=== PATIENT | male | born 1965 | race Two or more races ===

== ENCOUNTER 2021-08-28 06:51 | Outpatient (REF) | payer OTHER, SELFPAY ==
[2021-08-28 11:26] LABS: MANUAL DIFF FLAG NO
[2021-08-28 11:35] LABS: Basophils Percent Auto 0.3 % (0-2); Eosinophils Absolute Auto 0.1 X10*3/uL (0.0-0.4); Eosinophils Percent Auto 2.4 % (0-4); Hematocrit 49.4 % (42.0-52.0); Hemoglobin 16.4 g/dl (14.0-18.0); Imm Gran Abs Auto 0.01 X10*3/uL (0.00-0.03); Imm Gran Pct Auto 0.2 % (0.0-0.4); Lymphocytes Absolute Auto 1.9 X10*3/uL (1.2-4.9); Lymphocytes Percent Auto 31.5 % (20-40); Mean Corpuscular HGB Conc 33.2 g/dl (31.0-36.0); Mean Corpuscular Hemoglobin 30.8 pg (27.0-33.0); Mean Corpuscular Volume 92.9 fL (80.0-98.0); Monocytes Absolute Auto 0.6 X10*3/uL (0.1-1.2); Monocytes Percent Auto 9.3 % (2-11); Neutrophils Absolute Auto 3.4 x10*3/uL (2.0-8.3); Neutrophils Percent Auto 56.3 % (45-73); Platelet Count 232 X10*3/uL (160-400); Red Blood Count 5.32 X10*6/uL (4.60-5.80); Red Cell Distribution Width 13.1 % (11.0-16.0); White Blood Count 5.9 X10*3/uL (4.8-10.8)
[2021-08-28 11:41] LABS: Estimated Average Glucose 108 mg/dL; Hemoglobin A1c % 5.4 %
[2021-08-28 12:33] LABS: Alanine Aminotransferase 23 U/L (0-40); Albumin Level 4.4 g/dL (3.5-5.0); Alkaline Phosphatase 51 U/L (39-117); Anion Gap 12 (12-20); Aspartate Amino Transferase 20 U/L (5-37); Bilirubin Total 0.8 mg/dL (0.0-1.0); Blood Urea Nitrogen 12 mg/dL (9-16); Carbon Dioxide 23 mmol/L (22-29); Chloride 108 mmol/L (96-108); Cholesterol 175 mg/dL; Estimated Glomerular Filt Rate > 60; Glucose Fasting 109 mg/dL (60-99); HDL Cholesterol 41 mg/dL; LDL Cholesterol Calculated 100 mg/dl; Potassium 4.5 mmol/L (3.3-5.1); Sodium 138 mmol/L (135-145); Total Protein 7.3 g/dL (6.5-8.0); Triglycerides 173 mg/dL
[2021-09-01 14:06] LABS: Vitamin D 25-OH, D2 <4 ng/mL; Vitamin D 25-OH, D3 15 ng/mL; Vitamin D 25-OH, Total 15 ng/mL (30-100)
== END 2021-08-28 06:52 | disposition home or self-care (01) ==
LOC: HO.HMGCLDS 06:51
PROVIDERS: PCP Internal Medicine; Visit Provider Internal Medicine
DX: Z00.01 Encounter for general adult medical examination with abnormal findings (principal); E55.9 Vitamin D deficiency, unspecified; E66.09 Other obesity due to excess calories; N40.0 Benign prostatic hyperplasia without lower urinary tract symptoms; R73.01 Impaired fasting glucose
CPT/HCPCS: 36415; 80053; 80061; 82306; 83036; 85025

== ENCOUNTER 2021-09-09 10:19 | Outpatient (REF) | payer OTHER, SELFPAY | END 2021-09-09 10:20 | disposition home or self-care (01) | LOC: HO.HMGCLDS 10:19 | PROVIDERS: Visit Provider Internal Medicine | DX: Z20.822 Contact with and (suspected) exposure to COVID-19 (principal) | CPT/HCPCS: C9803; U0003; U0005 ==

== ENCOUNTER 2021-11-07 12:38 | Outpatient (REF) | payer OTHER, SELFPAY ==
--- NOTE | ~2021-11-07 | XR_ITS ---
EXAMINATION: XR FINGER, RIGHT CLINICAL INFORMATION: Residual foreign body in soft tissues. COMPARISON: None TECHNIQUE: 3 views of the right first digit. FINDINGS: There is mild loss of first MCP joint space with periarticular spurring. No bony erosive changes seen. There is no visible acute fracture or dislocation seen. XR/XR finger RT min 2V IMPRESSION: Mild degenerative changes first MCP joint with periarticular spurring. No acute fracture seen.
== END 2021-11-07 12:39 | disposition home or self-care (01) ==
LOC: HO.HMGCX 12:38
PROVIDERS: Visit Provider Internal Medicine
DX: M79.5 Residual foreign body in soft tissue (principal); M79.644 Pain in right finger(s)
CPT/HCPCS: 73140

== ENCOUNTER → 2021-12-03 13:42 | Outpatient (BNVA) | payer OTHER, SELFPAY | PROVIDERS: PCP Internal Medicine; Visit Provider Orthopaedic Surgery | DX: S60.351D Superficial foreign body of right thumb, subsequent encounter (principal); X58.XXXD Exposure to other specified factors, subsequent encounter | CPT/HCPCS: 99212 ==

== ENCOUNTER 2021-12-08 09:55 | Day surgery (SDC) | payer OTHER, SELFPAY ==
--- NOTE | 2021-12-08 08:10 | W.PM.OPN ---
Operative Note Operative Note Date of Service: 12/08/21 Narrative: Operative Note Preop diagnosis: 1. Right thumb foreign body Postop diagnosis: same Procedure: 1. Right thumb foreign body excision Surgeon: Debra Long MD Anesthesia: digital block using 1% lidocaine with epinephrine Findings: A 2.5 cm long wooden splinter measuring approximately 2 mm in diameter was removed from the radial aspect of his right thumb. EBL: Less than 5 mL Tourniquet time: None Specimens: Right thumb foreign body/splinter Complications: None Disposition: Brought to recovery room in stable condition Plan: Follow-up for 7-10 days for wound check and suture removal and to check pathology I am also going to send him out on a 7 day course of prophylactic antibiotics. Indications: The patient is 56 years old, with a large splinter in his right thumb . The risks and benefits of operative treatment including but not limited to risk of damage to blood vessels, nerves, tendons, infection, persistent pain, persistent symptoms, recurrence or possible need for additional surgery were discussed with the patient and the patient wishes to proceed with surgery. Procedure: Once consent was obtained a digital block was performed in the preop area using a combination of 1% lidocaine with epinephrine. The patient was then brought back to the operating suite and placed on the operative table in supine position. A tourniquet was applied to the proximal aspect of the right upper extremity and the limb was prepped and draped in a standard surgical fashion. Once assured that we had a good block, I 1st made a 1.5 cm longitudinally oriented oblique incision directly over the foreign body on the radial aspect of the patient's right thumb. The incision was made through the skin to the subcutaneous tissues using a 15. Blade. I then dissected down to the subcutaneous tissues and the fascial layer radial to the distal phalanx using tenotomy and iris scissors. The foreign body was identified in oriented longitudinally but slightly obliquely. It is a wooden splinter. I tried to remove it, but the soft tissues were adherent to it. I therefore extended my incision proximally and slightly volarly using a 15. Blade to the length of the foreign body. Again I dissected down to the level of the foreign body and freed it up from the adherent fascia and scar. I then removed the foreign body placed on the back table. It measured 2.5 cm. The wound was then copiously irrigated with normal saline and hemostasis was obtained with a brief period of local pressure and some bipolar electrocautery The skin edges were reapproximated with some 5.0 nylon suture material and a sterile dressing was applied. The patient appears to have tolerated the procedure well and with no complications. All digits were well vascularized at the conclusion of the case.
[2021-12-08 10:05] VITALS: BP 125/60; PULSE 70; RESP 16; TEMP 36.7; O2SAT 96; BMI 31.0
--- NOTE | 2021-12-08 10:42 | MHC.SHP ---
Pre-Procedural Eval Section A Date of Service: 12/08/21 The patient is an INPATIENT: No Changes since office visit: No Cold of Flu in the past 2 weeks, No New Medical Problems, No Changes in Medication and No Patient answered all questions The History & Physical has been completed within 30 days and I have reviewed it.: Yes Section B Chief Complaint: foreign body removal Allergies: Allergies Allergy/AdvReac Type Severity Reaction Status Date / Time No Known Allergies Allergy Verified 12/03/21 14:02 Plan I have reviewed the history and physical and performed a pertinent physical examination on my patient. No changes have occurred unless specified.
[2021-12-08 11:55] VITALS: BP 121/79; PULSE 61; RESP 20; TEMP 36.8; O2SAT 97
== END 2021-12-08 12:05 | disposition home or self-care (01) ==
PROVIDERS: PCP Internal Medicine; Visit Provider Orthopaedic Surgery
PROC: (CPT 10120; principal; 2021-12-08 10:10)
DX: S60.351A Superficial foreign body of right thumb, initial encounter (principal); Z18.33 Retained wood fragments; M19.041 Primary osteoarthritis, right hand; X58.XXXA Exposure to other specified factors, initial encounter; Y93.9 Activity, unspecified; Y92.009 Unspecified place in unspecified non-institutional (private) residence as the place of occurrence of the external cause; Y99.8 Other external cause status
CPT/HCPCS: 10120; 88300; J0171

== ENCOUNTER → 2021-12-23 09:01 | Outpatient (BNVA) | payer OTHER, SELFPAY | PROVIDERS: PCP Internal Medicine; Visit Provider Orthopaedic Surgery | DX: Z13.89 Encounter for screening for other disorder (principal) ==

== ENCOUNTER 2022-02-05 06:20 | Outpatient (REF) | payer OTHER, SELFPAY ==
[2022-02-05 11:12] LABS: MANUAL DIFF FLAG NO
[2022-02-05 11:23] LABS: Basophils Percent Auto 0.4 % (0-2); Eosinophils Absolute Auto 0.2 X10*3/uL (0.0-0.4); Eosinophils Percent Auto 2.4 % (0-4); Hematocrit 47.6 % (42.0-52.0); Hemoglobin 15.5 g/dl (14.0-18.0); Imm Gran Abs Auto 0.03 X10*3/uL (0.00-0.03); Imm Gran Pct Auto 0.4 % (0.0-0.4); Lymphocytes Absolute Auto 2.2 X10*3/uL (1.2-4.9); Lymphocytes Percent Auto 29.7 % (20-40); Mean Corpuscular HGB Conc 32.6 g/dl (31.0-36.0); Mean Corpuscular Hemoglobin 30.4 pg (27.0-33.0); Mean Corpuscular Volume 93.3 fL (80.0-98.0); Mean Platelet Volume 10.7 fL (9.4-12.4); Monocytes Absolute Auto 0.7 X10*3/uL (0.1-1.2); Monocytes Percent Auto 10.1 % (2-11); Neutrophils Absolute Auto 4.2 x10*3/uL (2.0-8.3); Platelet Count 201 X10*3/uL (160-400); Red Cell Distribution Width 13.3 % (11.0-16.0); White Blood Count 7.4 X10*3/uL (4.8-10.8)
[2022-02-05 11:42] LABS: Alanine Aminotransferase 24 U/L (0-40); Albumin Level 4.1 g/dL (3.5-5.0); Alkaline Phosphatase 42 U/L (39-117); Anion Gap 11 (12-20); Aspartate Amino Transferase 21 U/L (5-37); Bilirubin Total 0.4 mg/dL (0.0-1.0); Blood Urea Nitrogen 15 mg/dL (9-16); Calcium 9.4 mg/dL (8.4-10.2); Carbon Dioxide 25 mmol/L (22-29); Chloride 106 mmol/L (96-108); Estimated Glomerular Filt Rate > 60; Glucose Random 104 mg/dL (60-115); Potassium 4.3 mmol/L (3.3-5.1); Sodium 138 mmol/L (135-145)
[2022-02-05 12:07] LABS: TSH reflex Free T4 1.52 uIU/mL (0.32-4.0)
[2022-02-05 12:13] LABS: Estimated Average Glucose 105 mg/dL; Hemoglobin A1c % 5.3 %
[2022-02-05 12:20] LABS: Vitamin B12 205 pg/mL (200-900)
[2022-02-09 12:52] LABS: Vitamin D 25-OH, D2 <4 ng/mL; Vitamin D 25-OH, D3 26 ng/mL; Vitamin D 25-OH, Total 26 ng/mL (30-100)
== END 2022-02-05 06:21 | disposition home or self-care (01) ==
LOC: HO.HMGCLDS 06:20
PROVIDERS: Visit Provider Internal Medicine
DX: E66.09 Other obesity due to excess calories (principal); I10 Essential (primary) hypertension; K64.9 Unspecified hemorrhoids; R73.01 Impaired fasting glucose; S46.011A Strain of muscle(s) and tendon(s) of the rotator cuff of right shoulder, initial encounter; E55.9 Vitamin D deficiency, unspecified
CPT/HCPCS: 36415; 80053; 82306; 82607; 83036; 84443; 85025

== ENCOUNTER 2022-02-17 15:49 | Outpatient (REF) | payer OTHER, SELFPAY ==
--- NOTE | ~2022-02-17 | XR_ITS ---
EXAMINATION: XR SHOULDER, RIGHT CLINICAL INFORMATION: Strain of muscle and tendon of the rotator cuff COMPARISON: None TECHNIQUE: Three views of the right shoulder. FINDINGS: No fracture or dislocation. The glenohumeral joint is well aligned. The joint space is maintained. The acromioclavicular joint is well aligned. Subacromial spurring noted. The visualized lung is clear. The visualized ribs are intact. XR/XR shoulder RT min 2V IMPRESSION: Subacromial spurring which can predispose to rotator cuff disease. Otherwise unremarkable appearance.
== END 2022-02-17 15:50 | disposition home or self-care (01) ==
LOC: HO.HMGCX 15:49
PROVIDERS: PCP Internal Medicine; Visit Provider Internal Medicine
DX: S46.011A Strain of muscle(s) and tendon(s) of the rotator cuff of right shoulder, initial encounter (principal)
CPT/HCPCS: 73030

== ENCOUNTER → 2022-03-17 13:21 | Outpatient (BNVA) | payer OTHER, SELFPAY | PROVIDERS: PCP Internal Medicine; Visit Provider Physician Assistant | DX: M75.80 Other shoulder lesions, unspecified shoulder (principal) | CPT/HCPCS: 20610; J1040 ==

== ENCOUNTER 2022-10-02 07:19 | Outpatient (REF) | payer OTHER, SELFPAY ==
[2022-10-02 11:21] LABS: MANUAL DIFF FLAG NO
[2022-10-02 11:30] LABS: Basophils Percent Auto 0.4 % (0-2); Eosinophils Absolute Auto 0.2 X10*3/uL (0.0-0.4); Eosinophils Percent Auto 2.4 % (0-4); Hematocrit 46.8 % (42.0-52.0); Hemoglobin 15.9 g/dl (14.0-18.0); Imm Gran Abs Auto 0.02 X10*3/uL (0.00-0.03); Imm Gran Pct Auto 0.3 % (0.0-0.4); Lymphocytes Absolute Auto 2.2 X10*3/uL (1.2-4.9); Lymphocytes Percent Auto 30.5 % (20-40); Mean Corpuscular Hemoglobin 30.8 pg (27.0-33.0); Mean Corpuscular Volume 90.5 fL (80.0-98.0); Mean Platelet Volume 9.8 fL (9.4-12.4); Monocytes Absolute Auto 0.7 X10*3/uL (0.1-1.2); Monocytes Percent Auto 9.8 % (2-11); Neutrophils Percent Auto 56.6 % (45-73); Platelet Count 210 X10*3/uL (160-400); Red Blood Count 5.17 X10*6/uL (4.60-5.80); Red Cell Distribution Width 12.3 % (11.0-16.0); White Blood Count 7.1 X10*3/uL (4.8-10.8)
[2022-10-02 13:00] LABS: Alanine Aminotransferase 35 U/L (0-40); Albumin Level 4.6 g/dL (3.5-5.0); Alkaline Phosphatase 48 U/L (39-117); Anion Gap 12 (12-20); Aspartate Amino Transferase 25 U/L (5-37); Bilirubin Total 1.1 mg/dL (0.0-1.0); Blood Urea Nitrogen 17 mg/dL (9-16); Calcium 9.3 mg/dL (8.4-10.2); Carbon Dioxide 26 mmol/L (22-29); Chloride 103 mmol/L (96-108); Cholesterol 189 mg/dL; Estimated Glomerular Filt Rate > 60; Glucose Fasting 98 mg/dL (60-99); HDL Cholesterol 43 mg/dL; LDL Cholesterol Calculated 123 mg/dl; Potassium 4.3 mmol/L (3.3-5.1); Sodium 137 mmol/L (135-145); Total Protein 7.5 g/dL (6.5-8.0); Triglycerides 115 mg/dL
[2022-10-02 13:12] LABS: Vitamin B12 778 pg/mL (200-900)
[2022-10-02 13:17] LABS: TSH reflex Free T4 1.35 uIU/mL (0.32-4.0)
[2022-10-07 14:04] LABS: Vitamin D 25-OH, D2 <4 ng/mL; Vitamin D 25-OH, D3 29 ng/mL; Vitamin D 25-OH, Total 29 ng/mL (30-100)
== END 2022-10-02 07:20 | disposition home or self-care (01) ==
LOC: HO.HMGCLDS 07:19
PROVIDERS: PCP Internal Medicine; Visit Provider Internal Medicine
DX: Z00.01 Encounter for general adult medical examination with abnormal findings (principal); E53.8 Deficiency of other specified B group vitamins; E55.9 Vitamin D deficiency, unspecified; E66.09 Other obesity due to excess calories; R73.01 Impaired fasting glucose; I10 Essential (primary) hypertension
CPT/HCPCS: 36415; 80053; 80061; 82306; 82607; 84443; 85025

== ENCOUNTER → 2022-10-13 07:55 | Outpatient (REF) | payer OTHER, SELFPAY ==
--- NOTE | 2022-10-13 07:58 | CA_ITS ---
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 The calculated ejection fraction is 55% by biplane method. - No obvious valvular pathology seen on this study. Findings Left Ventricle Normal left ventricular cavity size. There is normal left ventricular wall thickness. The left ventricular systolic function is normal. The calculated ejection fraction is 55% by biplane method. There is no evidence of regional wall motion abnormalities. Diastolic function is normal for age. There is mild septal asymmetric hypertrophy. Right Ventricle Normal right ventricular cavity size and systolic function. Atria Both atria are normal in size. Aortic Valve There is a normal trileaflet aortic valve. There is no aortic valve stenosis. There is no aortic valve regurgitation. Mitral Valve The mitral valve appears normal. There is trace mitral valve regurgitation. There is no mitral valve stenosis. Pulmonic Valve There is trace pulmonic valve regurgitation. Tricuspid Valve Normal tricuspid valve structure. There is trace tricuspid valve regurgitation. There is no evidence of pulmonary hypertension. Great Vessels The asc aorta is normal in size. Venous The inferior vena cava is mildly dilated and collapses greater than 50% with inspiration. Pericardium/Pleural There is no evidence of pericardial effusion. Prior Study Comparison No prior study available for comparison. Recommendations, Care & Conclusions No obvious valvular pathology seen on this study. Measurements 2D Linear Measurements IVSd: 1.02 0.6-0.9/0.6-1.0 cm LVIDd: 4.54 3.9-5.3/4.2-5.9 cm LVIDd Index: 2.17 2.4-3.2/2.2-3.1 cm/m2 LVIDs: 3.24 2.0-3.6 cm LVPWd: 1.00 0.7-1.1 cm LA Diam: 3.30 2.7-3.8/3.0-4.0 cm LAIDs Index: 1.58 1.5-2.3 cm/m2 LV Mass: 195.60 67-162/88-224 g LV Mass Index: 93.59 43-95/49-115 g/m2 LVOT Diam: 2.20 3.0+(-)1.3 cm 2D Systolic Function EF 4C: 50.30 >55% EF 2C: 56.70 >55% EF BiP: 54.60 >55% Mitral Valve MV Pk E: 0.63 MV PK A: 0.53 MV Decel Time: 186.00 E/A: 1.20 E'Lateral: 10.80 E'Medial: 8.05 E/E' Med: 7.80 E/E' Lat: 5.80 PHT: 54.00 MVA PHT: 4.07 Decel [place]: 3.39 Aortic Valve AoV Pk Junior: 1.08 AoV Mn Junior: 0.81 AoV VTI: 0.24 AoV Pk Grad: 5.00 Aov Mn Grad: 3.00 DENNY Cont.VTI: 3.39 LVOT LVOT Pk Junior: 1.10 LVOT Mn Junior: 0.64 LVOT VTI: 0.21 LVOT Pk Grad: 5.00 LVOT Mn Grad: 2.00 LVOT Diam: 2.20 LVOT Area: 3.80 Diastolic Function MV Pk E: 0.63 MV Pk A: 0.53 E/A: 1.20 E'Medial: 8.05 E/E' Med: 7.80 E' Laterial: 10.80 E/E' Lat: 5.80 Right Ventricle TAPSE (mm): 23.90 TVS' Junior: 10.80 Tricuspid Valve TR Pk Junior: 2.51 TR Pk Grad: 25.00 RA Press: 8.00 RVSP: 33.00 Great Vessels Aorta Sinus of Valsalva: 3.65 2.0-3.[address] [place]: 3.13 1.7-3.4 cm Ao Asc: 3.60 2.1-3.4 cm Updated in Other Vendor System with Status of Final Geovanny Trinidad MD electronically signed on 10/13/2022 12:21:34 PM with status of Final
--- NOTE | 2022-10-13 07:58 | CA_ITS ---
Acquisition Time: 2022-10-13 08:43:44 Total Exercise Time: 00:07:59 Test Indications: Chest pain Medications: VALSARTAN Protocol: JIM Max HR: 164 BPM 100% of Pred: 164 BPM Max BP: 142/080 mmHG Max Work Load: 10.0 METS Exercise stress test with exercise 7 min 59 sec of Jim protocol, achieving 100% MPHR, 10 METs, with report of fatigue, no anginal symptoms, with isolated PAC and PVC, with normotensive response to exercise, without EKG changes meeting criteria for ischemia. Test reviewed with Dr Rogers Referred By: Cleve Catherine Overread By: DAYRON VASQUES
== END ==
LOC: HO.CARD 07:55
PROVIDERS: Visit Provider Internal Medicine
DX: R07.89 Other chest pain (principal); I10 Essential (primary) hypertension
CPT/HCPCS: 93017; 93306

== ENCOUNTER → 2022-10-27 16:03 | Outpatient (BNVA) | payer OTHER, SELFPAY | PROVIDERS: PCP Internal Medicine; Visit Provider Nurse Practitioner Family | DX: Z13.89 Encounter for screening for other disorder (principal) ==

== ENCOUNTER 2023-03-04 08:13 | Day surgery (SDC) | payer OTHER, SELFPAY ==
[2023-03-02 11:08] VITALS: BMI 30.9
--- NOTE | 2023-03-03 10:53 | HO.ANESPROP2 ---
Documented by User: Tejal Nunez NP 03/03/23 10:54 HPI - Anesthesia Eval Consult details Narrative: 57yo M for Colonoscopy PMFSH Active Problems Active Problems: All Active Problems (Updated 09/29/22 @ 15:48 by Cleve Catherine MD) Chest tightness (Acute) Rotator cuff tendonitis (Acute) Fatigue (Acute) B12 deficiency (Acute) Strain of tendon of right rotator cuff (Acute) Foreign body of finger of right hand (Acute) Bleeding hemorrhoids (Acute) Hypertension, essential, benign (Acute) Pain of right thumb (Acute) Foreign body (FB) in soft tissue (Acute) Elevated blood pressure reading (Acute) Colon cancer screening (Acute) Obesity due to excess calories (Acute) Vitamin D deficiency (Acute) Impaired fasting blood sugar (Acute) Encounter for general adult medical examination with abnormal findings (Acute) Past Medical History Medical History Bone spur of ankle HTN (hypertension) Family History Family History Other Bone spur of ankle Surgical History Surgical History Hx of colonoscopy Social History Social History Housing: House Patient Tobacco Use Status: Never used Tobacco e-Cigarette/Vaping Use: Never Used Use of substances other than those prescribed or required for medical reasons: No Are you DNR?: No Advance Directives: No Advance Directives Information Provided: Yes service: No Current occupational status: employed 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 Cognitive needs: No Hearing needs: No Vision needs: No Meds Allergies Allergy/AdvReac Type Severity Reaction Status Date / Time No Known Allergies Allergy Verified 03/04/23 08:36 Home Medications Medication Instructions Recorded Confirmed Last Taken Type testosterone enanthate 50 mg/0.5 50 mg subcut QWEEK 08/27/21 01/08/23 Unknown History mL subcutaneous auto-injector testosterone cypionate 200 mg/mL 400 mg IM Q3W 03/17/22 01/08/23 Unknown History intramuscular oil cholecalciferol (vitamin D3) 50 50 mcg PO 2XW 03/04/23 03/04/23 Unknown History mcg (2,000 unit) tablet cyanocobalamin (vitamin B-12) 1,000 mcg PO 2XW 03/04/23 Unknown History 1,000 mcg tablet Exam Exam Date and Time: March 03, 2023 1053 Height,Weight and Vital Signs: Height 5 ft 9 in Weight 94.801 kg Narrative Narrative: EKG 09/2022 NSR @ 62 RBBB Exercise Stress 09/2022 Protocol: JOSE MIGUEL ? Max HR: 164 BPM? 100% of? Pred: 164 BPM Max BP: 142/080 mmHG Max Work Load: 10.0 METS ? Exercise stress test with exercise 7 min 59 sec of Jose Miguel protocol, achieving ?100% MPHR, 10 METs, with report of fatigue, no anginal symptoms, with isolated ?PAC and PVC, with normotensive response to exercise, without EKG changes ?meeting criteria for ischemia. Test reviewed with Dr Rogers ECHO 09/2022 Conclusions: - The left ventricular systolic function is normal.? The ? calculated ejection fraction is 55% by biplane method. ? - No obvious valvular pathology seen on this study.? Assessment and Plan Assessment Anesthesia Assessment: Chart Reviewed Documented by User: Caridad Almodovar MD 03/04/23 10:04 [facility] Past Medical History Medical History Bone spur of ankle HTN (hypertension) Family History Family History Other Bone spur of ankle Surgical History Surgical History Hx of colonoscopy Social History Social History Housing: House Patient Tobacco Use Status: Never used Tobacco e-Cigarette/Vaping Use: Never Used Use of substances other than those prescribed or required for medical reasons: No Are you DNR?: No Advance Directives: No Advance Directives Information Provided: Yes service: No Current occupational status: employed 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 Cognitive needs: No Hearing needs: No Vision needs: No Meds Allergies Allergy/AdvReac Type Severity Reaction Status Date / Time No Known Allergies Allergy Verified 03/04/23 08:36 Home Medications Medication Instructions Recorded Confirmed Last Taken Type testosterone enanthate 50 mg/0.5 50 mg subcut QWEEK 08/27/21 01/08/23 Unknown History mL subcutaneous auto-injector testosterone cypionate 200 mg/mL 400 mg IM Q3W /02/0101/08/23 Unknown History intramuscular oil cholecalciferol (vitamin D3) 50 50 mcg PO 2XW 03/04/23 03/04/23 Unknown History mcg (2,000 unit) tablet cyanocobalamin (vitamin B-12) 1,000 mcg PO 2XW 03/04/23 Unknown History 1,000 mcg tablet Exam Airway Mallampati Class: II TM Dist: >3cm Neck ROM: Full Heart: RRR Lungs: CTA Assessment and Plan Final Anesthetic Review ASA Class: II Final Preanesthetic Review: Meds/Allgs Chart Reviewed, Consent Obtained/Reviewed and Anes Risks/Benef Reviewed Patient Risk: Low Procedure Risk: Low Anesthetic Plan Anesthetic Plan: MAC: Disposition: Standard PACU
[2023-03-04 08:40] VITALS: BMI 30.3
[2023-03-04 08:44] VITALS: BP 111/77; PULSE 54; RESP 16; TEMP 36.1; O2SAT 97
[2023-03-04] MEDS: Lactated Ringers 1,000 ML 100 ML IVCONT (09:00)
--- NOTE | 2023-03-04 09:08 | MHC.SHP ---
Pre-Procedural Eval Section A Date of Service: 03/04/23 Section B Chief Complaint: Encounter for screening for malignant neoplasm of Relevant Family History (Specify if Yes): No Relevant Social History: None Present Medications: see Short Stay Collaborative assessment Medical History: Significant History (b12 def, HTN, vit D def) History of Previous Operations: No relevant previous surgery Allergies: Allergies Allergy/AdvReac Type Severity Reaction Status Date / Time No Known Allergies Allergy Verified 03/04/23 08:36 Review of Systems Sugical H&P ROS: Negative: Constitution, Cardiovascular, Respiratory, Neurological, Psychiatric, Hem-Onc, Allergic/Immunologic, Gastrointestinal, Genitourinary, Musculoskeletal, Integumentary, Endocrine and Eyes/Ears/Nose/Throat Exam Surgical H&P Exam: Normal: HEENT, Normal: Heart, Normal: Lungs, Normal: Extremities, Normal: Abdomen, Normal: Skin and Normal: Neurological Plan Diagnosis/Plan: Unchanged I have reviewed the history and physical and performed a pertinent physical examination on my patient. No changes have occurred unless specified. Time Spent With Patient Time: Total time managing care of this patient today ____ minutes.
--- NOTE | 2023-03-04 09:10 | W.PM.OPN ---
Operative Note Operative Note Date of Service: 03/04/23 Narrative: Operative Information Procedure Description: Colonoscopy Indication: screening Anesthesia: MAC COLONOSCOPY Instrument: Olympus variable stiffness pediatric scope 190L Colonoscopy Monitoring: Vital signs and clinical assessment, continuous EKG monitoring, Pulse oximetry, Carbon Dioxide monitoring and blood pressure monitoring were done throughout the procedure. Colon withdrawal time was 10 minutes. Procedure: The patient was placed in the left lateral decubitis position and pre-procedure medications were administered. After a digital rectal examination of the ano-rectum, the video colonoscope was inserted into the rectum and advanced through the colon to the cecum/TI. The colonoscope was slowly withdrawn in a retrograde panoramic fashion and the colon mucosa was carefully examined including a retroflexed view of the rectum. Findings and interventions are described below. Procedure Difficulty: easy Findings: Terminal Ileum-normal Cecum:normal Ascending Colon: normal Transverse Colon -normal Descending Colon: 5-8 mm sessile polyp removed with cold snare Sigmoid Colon: normal Rectum: Retroflexion with small internal hemorrhoids, grade I Anorectum - normal Colon preparation: [place] Bowel Preparation Scale Right colon; 2 Transverse colon: 2 Left colon; 2 (0 = Unprepared colon segment with mucosa not seen due to solid stool that cannot be cleared. 1 = Portion of mucosa of the colon segment seen, but other areas of the colon segment not well seen due to staining, residual stool and/or opaque liquid. 2 = Minor amount of residual staining, small fragments of stool and/or opaque liquid, but mucosa of colon segment seen well. 3 = Entire mucosa of colon segment seen well with no residual staining, small fragments of stool or opaque liquid) Impression and Post Procedure Diagnosis: polyp internal hemorrhoids Plan: High fiber diet leaflet Avoid straining at stool, epsom salts and sitz bath, anusol supps or cream Repeat Colonoscopy in 5-7 years due to adenomatous appearing polyp or earlier if clinically indicated Above findings were reviewed with the patient and relevant handouts were provided if indicated.
[2023-03-04 10:12] VITALS: BP 98/59; PULSE 66; RESP 16; TEMP 36.2; O2SAT 97
[2023-03-04 10:17] VITALS: BP 108/60; PULSE 58; RESP 16; O2SAT 97
--- NOTE | 2023-03-04 10:19 | HO.POSTANES ---
Post Anesthesia Evaluation Post Anesthesia Evaluation Date of Service: 03/04/23 Vital Signs: Vital Signs Temp Pulse Resp BP Pulse Ox O2 Del Method 03/04/23 10:17 58 16 108/60 97 Room Air 03/04/23 10:12 97.1 F 66 16 98/59 L 97 Room Air 03/04/23 08:44 97.0 F 54 16 111/77 97 Room Air Anesthesia: Monitored Mental Status: Awake Pain Control: Satisfactory Nausea/Vomiting: None Hydration: Adequate Anesthesia-Related Issues: No Anes. Related Issues
[2023-03-04 10:22] VITALS: BP 102/67; PULSE 46; RESP 16; O2SAT 97
[2023-03-04 10:27] VITALS: BP 112/67; PULSE 66; RESP 16; TEMP 36.4; O2SAT 97
== END 2023-03-04 12:00 | disposition home or self-care (01) ==
PROVIDERS: PCP Internal Medicine; Visit Provider Internal Medicine Gastroenterology
PROC: 0DJD8ZZ Inspection of Lower Intestinal Tract, Via Natural or Artificial Opening Endoscopic (ICD-10-PCS; CPT 45378; principal; 2023-03-04 09:50)
DX: Z12.11 Encounter for screening for malignant neoplasm of colon (principal); D12.4 Benign neoplasm of descending colon; K64.0 First degree hemorrhoids; I10 Essential (primary) hypertension; Z79.899 Other long term (current) drug therapy
CPT/HCPCS: 45385; 88305

== ENCOUNTER 2023-04-20 15:42 | Outpatient (AMB) | payer OTHER, SELFPAY ==
--- NOTE | 2023-04-20 15:44 | MHC.OFFWIV ---
Intake Vital Signs 04/20/23 15:51 Height 5 ft 9 in Weight 211 lb 6 oz BMI 31.2 BP 120/72 Blood Pressure Location Rt brachial Position Sitting Pulse 90 Pulse Source Pulse Oximeter Temp 97.8 F Temp Source Temporal Artery Scan Pulse Oximetry (%) 96 Oxygen Delivery Method Room Air Intake Visit Reasons: EST/sore throat/ (lobby masked) Patient Tobacco Use Status: Never used Tobacco Allergies No Known Allergies Allergy (Verified 04/20/23 16:22) Medication List - Last Reconciled 04/20/23 by Chilo Solano MD blood pressure monitor (Blood Pressure Kit) Use to check blood pressure daily cholecalciferol (vitamin D3) 50 mcg PO 2XW cyanocobalamin (vitamin B-12) 1,000 mcg PO 2XW hydrocortisone 1% (Anti-Itch (hydrocortisone)) 1 appl topical TID PRN testosterone cypionate 400 mg IM Q3W testosterone enanthate 50 mg subcut QWEEK valsartan 80 mg (2 x 40 mg) PO DAILY 90 days HPI EST/sore throat/ (lobby masked) HPI Details Patient presents for a sick visit. Reporting symptoms of sinus congestion, sore throat and difficulty swallowing. Low-grade fever. No family member is sick. No recent travel. Patient reports symptoms of malaise and fatigue. 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 Cognitive needs: No Hearing needs: No Vision needs: No Physical Exam Vital Signs: Last Vital Signs Temp 97.8 F 04/20/23 15:51 Pulse 90 04/20/23 15:51 BP 120/72 04/20/23 15:51 Pulse Ox 96 08/08/23 15:51 Oxygen Delivery Method Room Air 04/20/23 15:51 BMI result Body Mass Index 31.2 Const General: cooperative and healthy appearing Nutritional Appearance: well nourished Orientation/consciousness: patient oriented x3 Limitations: no limitations HEENT Head: Yes normal to inspection Eyes General: appearance normal, both eyes and all related structures Neck Neck: Yes normal visual inspection Chest Chest palpation & inspection: normal palpation of entire chest wall Resp Effort & Inspection: normal respiratory effort Neuro General: patient oriented x3 Results AMB Rapid Strep AMB Rapid Strep Negative Last Edit by Sharmila Cadet CMA on 04/20/23 16:03 Results Reviewed Results Reviewed: Laboratory Last Values Strep Scn Rapid Clinic Negative 04/20/23 16:03 Assessment & Plan Assessment & Plan (1) Upper respiratory tract infection: Code(s): J06.9 - Acute upper respiratory infection, unspecified Plan: Antibiotics ordered. Increase fluid intake. Tylenol for aches and pains. If symptoms worsen, follow-up here for a recheck. Orders: Orders AMB Rapid Strep Screen Today Z13.9 - Encounter for screening, unspecified Medications: Discontinued cholecalciferol (vitamin D3) 50 mcg PO DAILY 90 tabs 1RF cyanocobalamin (vitamin B-12) 1,000 mcg PO DAILY 90 days 90 tabs 0RF Coding Level of Care Code Est Pt Level 3 (39958) Diagnoses Upper respiratory tract infection J06.9
[2023-04-20 15:51] VITALS: BP 120/72; PULSE 90; TEMP 36.6; O2SAT 96; BMI 31.2
== END 2023-04-20 16:41 | disposition home or self-care (01) ==
PROVIDERS: PCP Internal Medicine; Visit Provider Internal Medicine
DX: J06.9 Acute upper respiratory infection, unspecified (principal); J02.9 Acute pharyngitis, unspecified
CPT/HCPCS: 87880; 99213

== ENCOUNTER 2023-05-03 21:17 | Emergency (ER) | payer OTHER, SELFPAY ==
--- NOTE | ~2023-05-03 | XR_ITS ---
EXAMINATION: XR CHEST CLINICAL INFORMATION: Cough for 2 weeks. COMPARISON: Chest radiograph 11/09/2006. TECHNIQUE: 2 views of the chest were obtained. FINDINGS: No significant abnormality is noted involving the heart, lungs, mediastinum, bony thorax or soft tissues. XR/XR chest 2V IMPRESSION: Unremarkable examination.
[2023-05-03 21:49] VITALS: BP 137/99; PULSE 86; RESP 20; TEMP 36.9; O2SAT 97; BMI 31.0
[2023-05-03 22:25] LABS: COVID-19 Test Negative (Negative); IDNOW Serial# 08D9AD1C
[2023-05-03 22:26] LABS: IDNOW Serial# BCCEAD1C; Influenza A Negative (Negative); Influenza B2 Negative (Negative)
--- NOTE | 2023-05-04 00:56 | ED_ITS ---
HPI - General Adult General Chief complaint: Upper Respiratory Symptoms Stated complaint: chronic cough, headache Time Seen by Provider: 05/04/23 00:37 Source: patient Mode of arrival: ambulatory Limitations: no limitations History of Present Illness HPI narrative: 57 yold male with pmh of HTN presents to the ED chronic cough the past 3 weeks with headache, bodyaches, sore throat and chills. patient was started on anbitiobitcs at [facility] 4 days ago. patient denies any leg swelling, calf pain, shortness of breath, abdominal pain, or rash. Related Data Home Medications Medication Instructions Recorded Confirmed testosterone enanthate 50 mg/0.5 50 mg subcut QWEEK 08/27/21 04/20/23 mL subcutaneous auto-injector testosterone cypionate 200 mg/mL 400 mg IM Q3W 03/17/22 04/20/23 intramuscular oil cholecalciferol (vitamin D3) 50 50 mcg PO 2XW 03/04/23 04/20/23 mcg (2,000 unit) tablet cyanocobalamin (vitamin B-12) 1,000 mcg PO 2XW 03/04/23 04/20/23 1,000 mcg tablet Previous Rx's Medication Instructions Recorded hydrocortisone 1 % topical cream 1 appl topical TID PRN skin 03/17/22 (Anti-Itch (hydrocortisone)) irritation #28.35 grams blood pressure monitor (Blood #1 ea 10/23/22 Pressure Kit) valsartan 40 mg tablet 80 mg PO DAILY 90 days #180 tabs 04/19/23 azithromycin 250 mg tablet 250 mg PO ONCE 1 day #4 tabs 04/20/23 (Zithromax) benzonatate 200 mg capsule 200 mg PO TID PRN cough 5 days #15 05/04/23 caps hydrocodone 5 mg-acetaminophen 325 1 tab PO Q6H PRN pain 3 days #12 05/04/23 mg tablet tabs Allergies Allergy/AdvReac Type Severity Reaction Status Date / Time No Known Allergies Allergy Verified 05/03/23 21:49 Review of Systems Review of Systems: Cough 3 weeks , sore throat, headcahe, chills, Yes all other systems are reviewed and are negative PMFSH Past Medical History Medical History Bone spur of ankle HTN (hypertension) Surgical History Hx of colonoscopy Family History Family History Other Bone spur of ankle Social History Social History Housing: House Patient Tobacco Use Status: Never used Tobacco Smoked in Last 30 Days: No e-Cigarette/Vaping Use: Never Used Use of substances other than those prescribed or required for medical reasons: No Advance Directives: No Advance Directives Information Provided: No service: No Current occupational status: employed 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 Cognitive needs: No Hearing needs: No Vision needs: No Physical Exam ED Vital Signs: Vital Signs - 24 hr 05/03/23 21:49 05/04/23 01:03 05/04/23 02:14 Temperature 98.4 F 98.0 F 98.0 F Pulse Rate 86 65 78 Respiratory Rate 20 17 14 Blood Pressure 137/99 H 128/71 138/82 Pulse Oximetry 97 98 97 Oxygen Delivery Method Room Air Room Air Room Air BMI result Body Mass Index 31.0 Const General: cooperative, healthy appearing, comfortable, no acute distress, well developed, alert and awake Orientation/consciousness: oriented to person, oriented to place, oriented to time and patient oriented x3 HENMT Head: Yes normal to inspection, Yes No palpable skull fracture present, Yes normocephalic, Yes atraumatic and No abrasion Ears: hearing grossly normal bilaterally, external ears normal, TM's normal bilaterally, TM normal on the right, TM normal on the left, EAC's normal, mastoids normal and no periauricular adenopathy Eyes General: appearance normal, both eyes and all related structures Neck Neck: Yes normal visual inspection, Yes full ROM, Yes no lymphadenopathy, Yes no meningeal signs, Yes trachea midline, Yes supple, No anterior neck swelling and No tender Chest Chest palpation & inspection: normal inspection of the chest and normal palp ation of entire chest wall Resp Effort & Inspection: normal respiratory effort and able to speak in complete sentences Auscultation: clear to auscultation bilaterally Cardio Jugular venous distension: no JVD Heart sounds: S1 normal heart sound present and S2 normal heart sound present GI Inspection: Yes normal to inspection and No abdominal wall ecchymosis Palpation (GI): Soft to palpation, not firm, nontender, no guarding and not rigid General: No CVA tenderness and Yes no CVA tenderness Back/Spine/Pelvis Back: no CVA tenderness, No CVA tenderness and No back tenderness Skin General skin exam: no rashes or lesions noted, elasticity normal and turgor normal Neuro General: oriented to person, oriented to place, oriented to time, patient oriented x3, gait normal, tone normal, moves all extremities, Normal light touch and pain sensation, no meningeal signs, no focal motor deficits, CN's II-XI intact bilaterally and normal sensation to monofilament Extrem Other: Bilateral lower extremiteis negative for swelling, pitting edema, or calf tenderness. General: Yes normal to inspection and Yes full ROM Psych Appearance: grossly normal, well kempt and not disheveled Medical Decision Making Medical Decision Making MDM Narrative: 57-year-old male presents to ED for chronic cough for the past 3 weeks with he other URI symptoms such as body aches, chills, sore throat and night sweats. Patient states is already on antibiotics. Patient denies any chest pain or shortness of breath. Patient's chest x-ray negative for pneumonia. Patient negative for COVID and influenza. Not suspected myocardial infarction, heart failure, pneumonia, or PE. Patient not taking lisinopril. Differential Diagnosis Differential Diagnoses: The differential diagnosis associated with the presentation includes (Pneumonia, myocardial infarction, heart failure, PE, URI, COvid, INfluenza) Admission/Observation Consideration of admission/observation: Escalation of care including admission/observation considered Lab Data [facility] Lab Attestation statement: I reviewed the patient's lab results. Labs: Lab Results 05/03/23 05/03/23 Range/Units 22:04 22:04 COVID-19 (BRANDON) Negative (Negative) COVID-19 Clin Com See Note Influenza Type A (CELESTE) Negative (Negative) Influenza Type B (CELESTE) Negative (Negative) Influenza A & B Note See Note Independent Interpretation I performed an independent interpretation of an: Plain X-Ray Radiology Impression Discussion of test interpretation with radiology: I have reviewed the radiologist's reading. External Record Review External record reviewed: Other (Prior ED visist) Prescription Management I considered prescription management with: Other (cough) Discharge Plan Discharge Clinical Impression: URI (upper respiratory infection), Chronic cough Patient Disposition: Home, Self-Care Instructions: Upper Respiratory Infection (ED), Chronic Cough (ED) Additional Instructions: Your x-ray came back negative for pneumonia and COVID influenza swabs are negative. Will be discharged with cough medication. Please follow-up with the primary care provider. Return to the ED for any leg swelling, calf pain, coughing up blood, chest pain, shortness of breath, chest pain on inspiration, or any other concerning symptoms. Prescriptions: New benzonatate 200 mg capsule 200 mg PO TID PRN (Reason: cough) 5 Days Qty: 15 0RF hydrocodone-acetaminophen 5-325 mg tablet 1 tab PO Q6H PRN (Reason: pain) 3 Days Qty: 12 0RF Rx Instructions: Partial Fill upon patient request. Side effect drowsiness. Take at bedtime. No Action (DME) blood pressure monitor [Blood Pressure Kit] Kit See Rx Instructions .Route Qty: 1 0RF Rx Instructions: Use to check blood pressure daily valsartan 40 mg tablet 80 mg PO DAILY 90 Days Qty: 180 0RF cyanocobalamin (vitamin B-12) 1,000 mcg tablet 1,000 mcg PO 2XW cholecalciferol (vitamin D3) 50 mcg (2,000 unit) tablet 50 mcg PO 2XW azithromycin [Zithromax] 250 mg tablet 250 mg PO ONCE 1 Days Qty: 4 0RF testosterone enanthate 50 mg/0.5 mL auto-injector 50 mg subcut QWEEK hydrocortisone [Anti-Itch (HC)] 1 % cream 1 appl topical TID PRN (Reason: skin irritation) Qty: 28.35 0RF testosterone cypionate 200 mg/mL oil 400 mg IM Q3W Stand Alone Forms: Work/School Release Interventions: ED Discharge Assessment Last Done: 05/04/23 02:17 Discharge Date/Time: 05/04/23 02:17 Print Language: Kenyan
[2023-05-04 01:03] VITALS: BP 128/71; PULSE 65; RESP 17; TEMP 36.7; O2SAT 98
[2023-05-04 02:14] VITALS: BP 138/82; PULSE 78; RESP 14; TEMP 36.7; O2SAT 97
== END 2023-05-04 02:17 | disposition home or self-care (01) ==
PROVIDERS: Emergency Provider Emergency Medicine; PCP Internal Medicine
DX: J06.9 Acute upper respiratory infection, unspecified (principal); R05.9 Cough, unspecified; R51.9 Headache, unspecified; Z20.822 Contact with and (suspected) exposure to COVID-19; Z20.828 Contact with and (suspected) exposure to other viral communicable diseases
CPT/HCPCS: 71046; 87502; 87635; 99283; 99284

== ENCOUNTER 2023-07-09 15:43 | Outpatient (AMB) | payer OTHER, SELFPAY ==
[2023-07-09 15:47] VITALS: BP 144/96; PULSE 85; O2SAT 97; BMI 32.1
--- NOTE | 2023-07-09 15:47 | MHC.PC.OV ---
Vital Signs 07/09/23 15:47 Height 5 ft 9 in Weight 217 lb 8 oz BMI 32.1 BP 144/96 H Blood Pressure Location Lt brachial Position Sitting Pulse 85 Pulse Source Pulse Oximeter Pulse Oximetry (%) 97 Oxygen Delivery Method Room Air Intake Visit Reasons: PE Allergies No Known Allergies Allergy (Verified 07/09/23 15:48) Medication List - Last Reconciled 07/09/23 by Cleve Catherine MD benzonatate 200 mg PO TID PRN 5 days blood pressure monitor (Blood Pressure Kit) Use to check blood pressure daily cholecalciferol (vitamin D3) 50 mcg PO 2XW cyanocobalamin (vitamin B-12) 1,000 mcg PO 2XW 90 days hydrocodone-acetaminophen 5-325 mg 1 tab PO Q6H PRN 3 days hydrocortisone 1% (Anti-Itch (hydrocortisone)) 1 appl topical TID PRN testosterone cypionate 400 mg IM Q3W testosterone enanthate 50 mg subcut QWEEK valsartan 80 mg (2 x 40 mg) PO DAILY 90 days Tobacco use date assessed: 07/09/23 Dental Screening Dental Screen Date: 07/09/23 Did you have a dental visit in the last 12 months?: Yes Did you have a dental problem in the last 6 months where you did not have access to dental care?: No Was dental information given to patient?: Patient has dentist HPI PE HPI Details Patient is a 57-year-old gentleman came in today for his physical exam Patient had cardiac workup done early this year Echocardiogram showed ejection fraction of 55% Stress test was negative for any ischemia Patient does have a family history of heart disease in father in late 60s His blood pressure is slightly elevated today because he cut down on his blood pressure medication He is supposed to be on valsartan 80 mg that he is taking 40 Instructed patient to go back to 80 mg of valsartan He was also supposed to do labs before this visit but he did not he will have it done tomorrow Colonoscopy was February of this year [facility], next 1 will be in 5 or 7 years. BMI is elevated at 32.1 patient need to lose weight. 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 1. Little interest or pleasure in doing things: not at all 2. Feeling down, depressed, or hopeless: not at all 3. Trouble falling or staying asleep, or sleeping too much: not at all 4. Feeling tired or having little energy: several days 5. Poor appetite or overeating: not at all 6. Feeling bad about yourself - or that you are a failure or have let yourself or your family down: not at all 7. Trouble concentrating on things, such as reading the newspaper or watching television: not at all 8. Moving or speaking so slowly that other people could have noticed. Or the opposite - being so fidgety or restless that you have been moving around a lot more than usual: not at all 9. Thoughts that you would be better off or of hurting yourself in some way: not at all Total score: 1 Depression Screening Interpretation: Negative Depression Screening Done: Yes 10037 - PHQ-9 Billing: Yes Source: Developed by Drs. Erasmo Morel, Marbella Rutherford, Rich Mann and colleagues, with an educational lane from [employer]. Thrive Questionnaire Date Thrive assessed: 02/17/22 AUDIT C Alcohol Use Questionnaire (AUDIT-C) 1. How often do you have a drink containing alcohol?: Never 3. How often do you have six or more drinks on one occasion?: Never Total Score: 0 Score Reviewed/Action Taken: Yes NATHALIE-7 AMB Questionnaire NATHALIE-7 Date NATHALIE - 7 assessed: 07/09/23 Feeling nervous, anxious, or on edge: 0 = Not at all Not being able to stop or control worryin = Not at all Worrying too much about different things: 0 = Not at all Trouble relaxin = Not at all Being so restless that it is hard to sit still: 0 = Not at all Becoming easily annoyed or irritable: 0 = Not at all Feeling afraid as if something awful might happen: 0 = Not at all Total NATHALIE-7 score (0-4 normal; 5-9 mild; 10-14 moderate; 15-21 severe): 0 Source: Developed by Drs. Erasmo Morel, Marbella Rutherford, Rich Mann and colleagues, with an educational lane from [employer]. NATHALIE-7 Assessment Billing NATHALIE-7 Assessment Tool: NATHALIE-7 Assessment 20185 Review of Systems Const Denies chills, Denies fever(s) and Denies headache(s) Eyes Denies blurry vision ENT Denies headache(s), Denies nasal discharge, Denies nasal obstruction, Denies odynophagia and Denies sinus pain Card Denies chest pain at rest and Denies chest pain with activity Resp Denies cough and Denies hemoptysis GI Denies diarrhea, Denies odynophagia, Denies vomiting and Denies hematemesis Reports as per HPI Musc Denies abnormal gait Skin/Breast Reports as per HPI Neuro Denies Neuro-related abnormal movements, Denies Abnormal speech present, Denies abnormal gait, Denies headache(s) and Denies Sensory deficit (Neuro) Psych Denies mood swings and Denies paranoia Endo Reports as per HPI Ralph/Lymph Reports as per HPI Aller/Immun Reports as per HPI Physical exam (Primary Care) Vital Signs: Last Vital Signs Pulse 85 07/09/23 15:47 BP 144/96 H 07/09/23 15:47 Pulse Ox 97 07/09/23 15:47 Oxygen Delivery Method Room Air 07/09/23 15:47 BMI result Body Mass Index 32.1 Tobacco/Smoking Status: Tobacco use Status Tobacco use date assessed 07/09/23 07/09/23 15:48 Patient Tobacco Use Status Never used Tobacco 07/09/23 15:48 e-Cigarette/Vaping Use Never Used 07/09/23 15:48 Depression Screening Interpretation: Negative Thrive Assessment: Date of Thrive Assessment Date Thrive assessed 02/17/22 07/09/23 15:48 Const General: cooperative, comfortable and no acute distress Orientation/consciousness: patient oriented x3 HENMT Head: Yes normocephalic and Yes atraumatic Eyes General: appearance normal, both eyes and all related structures Pupils: Equal, round and reactive pupils present EOM: EOMs intact bilaterally Neck Neck: Yes supple and No lymphadenopathy Thyroid: Thyroid normal Lymphatic: no lymphadenopathy noted Resp Effort & Inspection: normal respiratory effort and able to speak in complete sentences Auscultation: clear to auscultation bilaterally Cardio Heart sounds: S1 normal heart sound present and S2 normal heart sound present GI Palpation (GI): Soft to palpation and nontender Auscultation: normal bowel sounds General: Yes no CVA tenderness Back/Spine/Pelvis Back: no CVA tenderness Skin General skin exam: elasticity normal and turgor normal Neuro General: patient oriented x3 and gait normal Cranial nerves: Yes Equal, round and reactive pupils present Speech: No Abnormal speech present Sensory Exam: No Sensory deficit (Neuro) Coordination: tandem gait normal and Romberg test negative Extrem General: Yes normal exam except as noted and No edema Assessment and Plan Assessment & Plan (1) Encounter for general adult medical examination with abnormal findings: Code(s): Z00.01 - Encounter for general adult medical examination with abnormal findings (2) Impaired fasting blood sugar: Code(s): R73.01 - Impaired fasting glucose (3) Obesity due to excess calories: Code(s): E66.09 - Other obesity due to excess calories Qualifiers: Obesity classification: adult class 1 (BMI 30 - 34.9) Serious obesity comorbidity presence: with serious comorbidity Body mass index: BMI 32.0-32.9 Qualified Code(s): E66.09 - Other obesity due to excess calories; Z68.32 - Body mass index [BMI] 32.0-32.9, adult (4) Hypertension, essential, benign: Code(s): I10 - Essential (primary) hypertension (5) Hemorrhoids: Code(s): K64.9 - Unspecified hemorrhoids Qualifiers: Hemorrhoid type: first degree Qualified Code(s): K64.0 - First degree hemorrhoids Plan Patient is a 57-year-old gentleman came in today for his physical exam Patient had cardiac workup done early this year Echocardiogram showed ejection fraction of 55% Stress test was negative for any ischemia Patient does have a family history of heart disease in father in late 60s His blood pressure is slightly elevated today because he cut down on his blood pressure medication He is supposed to be on valsartan 80 mg that he is taking 40 Instructed patient to go back to 80 mg of valsartan He was also supposed to do labs before this visit but he did not he will have it done tomorrow Colonoscopy was February of this year [facility], next 1 will be in 5 or 7 years. BMI is elevated at 32.1 patient need to lose weight. Hemorrhoids are stable Follow-up 6 months Medications: Discontinued benzonatate Discontinued Reason: Patient Completed Course 200 mg PO TID PRN 15 caps 0RF cough 5 days Coding Level of Care Code Est Pt Prev Care 40-64y(71964) Diagnoses Encounter for general adult medical examination with abnormal findings Z00.01 Impaired fasting blood sugar R73.01 Class 1 obesity due to excess calories with serious comorbidity and body mass index (BMI) of 32.0 to 32.9 in adult E66.09; Z68.32 Obesity classification: adult class 1 (BMI 30 - 34.9) Serious obesity comorbidity presence: with serious comorbidity Body mass index: BMI 32.0-32.9 Hypertension, essential, benign I10 Grade I hemorrhoids K64.0 Hemorrhoid type: first degree Additional Codes NATHALIE-7 Assessment Billing - NATHALIE-7 Assessment Tool: NATHALIE-7 Assessment [id number] ([id number])
== END 2023-07-09 16:01 | disposition home or self-care (01) ==
PROVIDERS: Visit Provider Internal Medicine
DX: Z00.01 Encounter for general adult medical examination with abnormal findings (principal); R73.01 Impaired fasting glucose; E66.09 Other obesity due to excess calories; Z68.32 Body mass index [BMI] 32.0-32.9, adult; I10 Essential (primary) hypertension; K64.0 First degree hemorrhoids
CPT/HCPCS: 99396

== ENCOUNTER 2023-07-13 06:47 | Outpatient (REF) | payer OTHER, SELFPAY ==
[2023-07-13 11:10] LABS: MANUAL DIFF FLAG NO
[2023-07-13 11:17] LABS: Basophils Absolute Auto 0.1 X10*3/uL (0.0-0.2); Basophils Percent Auto 0.7 % (0-2); Eosinophils Absolute Auto 0.2 X10*3/uL (0.0-0.4); Eosinophils Percent Auto 3.4 % (0-4); Hematocrit 46.4 % (42.0-52.0); Hemoglobin 15.5 g/dl (14.0-18.0); Imm Gran Abs Auto 0.03 X10*3/uL (0.00-0.03); Imm Gran Pct Auto 0.4 % (0.0-0.4); Lymphocytes Absolute Auto 2.2 X10*3/uL (1.2-4.9); Lymphocytes Percent Auto 31.3 % (20-40); Mean Corpuscular HGB Conc 33.4 g/dl (31.0-36.0); Mean Corpuscular Volume 92.8 fL (80.0-98.0); Mean Platelet Volume 9.7 fL (9.4-12.4); Monocytes Absolute Auto 0.8 X10*3/uL (0.1-1.2); Monocytes Percent Auto 11.2 % (2-11); Neutrophils Absolute Auto 3.8 x10*3/uL (2.0-8.3); Platelet Count 208 X10*3/uL (160-400); Red Cell Distribution Width 13.2 % (11.0-16.0); White Blood Count 7.1 X10*3/uL (4.8-10.8)
[2023-07-13 11:38] LABS: Alanine Aminotransferase 41 U/L (0-40); Albumin Level 4.2 g/dL (3.5-5.0); Alkaline Phosphatase 44 U/L (39-117); Anion Gap 14 (12-20); Aspartate Amino Transferase 27 U/L (5-37); Bilirubin Total 0.5 mg/dL (0.0-1.0); Blood Urea Nitrogen 16 mg/dL (9-16); Calcium 9.2 mg/dL (8.4-10.2); Carbon Dioxide 25 mmol/L (22-29); Chloride 105 mmol/L (96-108); Cholesterol 168 mg/dL (<200); Estimated Glomerular Filt Rate > 60; Glucose Fasting 110 mg/dL (60-99); HDL Cholesterol 35 mg/dL (>40); LDL Cholesterol Calculated 105 mg/dL (<100); Potassium 4.5 mmol/L (3.3-5.1); Sodium 139 mmol/L (135-145); Total Protein 7.2 g/dL (6.5-8.0); Triglycerides 144 mg/dL (<150)
[2023-07-13 11:54] LABS: Vitamin B12 547 pg/mL (200-900)
[2023-07-18 15:27] LABS: Vitamin D 25-OH, D2 <4 ng/mL; Vitamin D 25-OH, D3 21 ng/mL; Vitamin D 25-OH, Total 21 ng/mL (30-100)
== END 2023-07-13 06:48 | disposition home or self-care (01) ==
LOC: HO.HMGCLDS 06:47
PROVIDERS: PCP Internal Medicine; Visit Provider Internal Medicine
DX: I10 Essential (primary) hypertension (principal); E53.8 Deficiency of other specified B group vitamins; R73.01 Impaired fasting glucose; E55.9 Vitamin D deficiency, unspecified
CPT/HCPCS: 36415; 80053; 80061; 82306; 82607; 85025

== ENCOUNTER 2024-01-14 11:24 | Outpatient (AMB) | payer OTHER, SELFPAY ==
--- NOTE | 2024-01-14 11:30 | MHC.PC.OV ---
Vital Signs 01/14/24 11:32 Height 5 ft 9 in Weight 220 lb 4 oz BMI 32.5 BP 132/84 Blood Pressure Location Rt brachial Position Sitting Pulse 80 Pulse Source Pulse Oximeter Pulse Oximetry (%) 97 Oxygen Delivery Method Room Air Intake Visit Reasons: 6 month follow up Allergies No Known Allergies Allergy (Verified 01/14/24 11:33) Medication List - Last Reconciled 01/14/24 by Cleve Catherine MD blood pressure monitor (Blood Pressure Kit) Use to check blood pressure daily cholecalciferol (vitamin D3) 50 mcg PO 2XW cyanocobalamin (vitamin B-12) 1,000 mcg PO 2XW 90 days testosterone cypionate 400 mg IM Q3W testosterone enanthate 50 mg subcut QWEEK valsartan 80 mg (2 x 40 mg) PO DAILY 90 days Tobacco use date assessed: 01/14/24 Dental Screening Dental Screen Date: 01/14/24 Did you have a dental visit in the last 12 months?: Yes Did you have a dental problem in the last 6 months where you did not have access to dental care?: No Was dental information given to patient?: Patient has dentist HPI 6 month follow up HPI Details Patient is a 58-year-old gentleman came in today for his regular follow-up appointment Blood pressure is controlled now patient is taking valsartan 40 mg b.i.d., tolerating medication no side effects BMI is still elevated patient is trying to lose weight He is due for labs to be done today Patient has impaired fasting sugar for that I would recommend diet-controlled Patient is aware of dietary restrictions. He is also taking supplement for vitamin-D and B12 Has appointment in July for physical examination At that time we need fasting labs, order placed We offer no other complaints Allergies are controlled with long-acting antihistamine Every now and then patient do feel bloated but that is a temporary I told him about food diary, it is recommended that he start recording what is causing the symptoms and then avoid that. 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 1. Little interest or pleasure in doing things: several days 2. Feeling down, depressed, or hopeless: not at all 3. Trouble falling or staying asleep, or sleeping too much: not at all 4. Feeling tired or having little energy: not at all 5. Poor appetite or overeating: not at all 6. Feeling bad about yourself - or that you are a failure or have let yourself or your family down: not at all 7. Trouble concentrating on things, such as reading the newspaper or watching television: not at all 8. Moving or speaking so slowly that other people could have noticed. Or the opposite - being so fidgety or restless that you have been moving around a lot more than usual: not at all 9. Thoughts that you would be better off or of hurting yourself in some way: not at all Total score: 1 Depression Screening Interpretation: Negative Depression Screening Done: Yes 72493 - PHQ-9 Billing: Yes Source: Developed by Drs. Erasmo Morel, Marbella Rutherford, Rich Mann and colleagues, with an educational lane from [employer]. Thrive Questionnaire Date Thrive assessed: 01/14/24 I am a: Patient What is your living situation today?: I have a steady place to live Within the past 12 months, did the food you bought not last and you didn't have the money to get more?: Never true Within the past 12 months, did you worry whether your food would run out before you got money to buy more?: Never true Do you have trouble paying for medicines?: No Do you have trouble getting transportation to medical appointments?: No Do you have trouble paying your heating and electricity bill?: No Do you have trouble taking care of your child, family member or friend?: No Do you have trouble with day-to-day activities such as bathing, preparing meals, shopping, managing finances, etc.?: No Are you currently unemployed and looking for a job?: No Are you interested in more education?: No Please select the resources that you would like help with: None THRIVE Score: 0 AUDIT C Alcohol Use Questionnaire (AUDIT-C) 1. How often do you have a drink containing alcohol?: Never 3. How often do you have six or more drinks on one occasion?: Never Total Score: 0 Score Reviewed/Action Taken: Yes NATHALIE-7 AMB Questionnaire NATHALIE-7 Date NATHALIE - 7 assessed: 01/14/24 Feeling nervous, anxious, or on edge: 0 = Not at all Not being able to stop or control worryin = Not at all Worrying too much about different things: 0 = Not at all Trouble relaxin = Not at all Being so restless that it is hard to sit still: 0 = Not at all Becoming easily annoyed or irritable: 0 = Not at all Feeling afraid as if something awful might happen: 0 = Not at all Total NATHALIE-7 score (0-4 normal; 5-9 mild; 10-14 moderate; 15-21 severe): 0 Source: Developed by Drs. Erasmo Morel, Marbella Rutherford, Rich Mann and colleagues, with an educational lane from [employer]. NATHALIE-7 Assessment Billing NATHALIE-7 Assessment Tool: NATHALIE-7 Assessment 17097 Review of Systems Const Denies chills and Denies fever(s) ENT Denies epistaxis and Denies nasal discharge Card Denies chest pain Resp Denies chest congestion, Denies cough and Denies hemoptysis GI Denies diarrhea and Denies nausea Skin/Breast Denies rash Neuro Reports no additional complaints Psych Reports no additional complaints Endo Reports no additional complaints Physical exam (Primary Care) Vital Signs: Last Vital Signs Pulse 80 01/14/24 11:32 BP 132/84 01/14/24 11:32 Pulse Ox 97 01/14/24 11:32 Oxygen Delivery Method Room Air 01/14/24 11:32 BMI result Body Mass Index 32.5 Tobacco/Smoking Status: Tobacco use Status Tobacco use date assessed 01/14/24 01/14/24 11:35 Patient Tobacco Use Status Never used Tobacco 01/14/24 11:31 e-Cigarette/Vaping Use Never Used 01/14/24 11:31 Depression Screening Interpretation: Negative Thrive Assessment: Date of Thrive Assessment Date Thrive assessed 02/17/22 01/14/24 11:31 Const General: cooperative, comfortable and no acute distress Orientation/consciousness: patient oriented x3 HENMT Head: Yes normocephalic Eyes General: appearance normal, both eyes and all related structures Neck Neck: Yes supple Resp Effort & Inspection: normal respiratory effort, no cough and no stridor Cardio Rhythm: regular rhythm Heart sounds: S1 normal heart sound present and S2 normal heart sound present Skin General skin exam: turgor normal Neuro General: patient oriented x3, tone normal and moves all extremities Extrem Right lower extremity: no edema Left lower extremity: no edema Assessment and Plan Assessment & Plan (1) Hypertension, essential, benign: Code(s): I10 - Essential (primary) hypertension (2) B12 deficiency: Code(s): E53.8 - Deficiency of other specified B group vitamins (3) Vitamin D deficiency: Code(s): E55.9 - Vitamin D deficiency, unspecified (4) Impaired fasting blood sugar: Code(s): R73.01 - Impaired fasting glucose (5) Obesity due to excess calories: Code(s): E66.09 - Other obesity due to excess calories Qualifiers: Body mass index: BMI 32.0-32.9 Obesity classification: adult class 1 (BMI 30 - 34.9) Serious obesity comorbidity presence: with serious comorbidity Qualified Code(s): E66.09 - Other obesity due to excess calories; Z68.32 - Body mass index [BMI] 32.0-32.9, adult (6) Environmental allergies: Code(s): Z91.09 - Other allergy status, other than to drugs and biological substances (7) Bloating: Code(s): R14.0 - Abdominal distension (gaseous) Plan Patient is a 58-year-old gentleman came in today for his regular follow-up appointment Blood pressure is controlled now patient is taking valsartan 40 mg b.i.d., tolerating medication no side effects BMI is still elevated patient is trying to lose weight He is due for labs to be done today Patient has impaired fasting sugar for that I would recommend diet-controlled Patient is aware of dietary restrictions. He is also taking supplement for vitamin-D and B12 Has appointment in July for physical examination At that time we need fasting labs, order placed We offer no other complaints Allergies are controlled with long-acting antihistamine Every now and then patient do feel bloated but that is a temporary I told him about food diary, it is recommended that he start recording what is causing the symptoms and then avoid that. Orders: Orders Comprehensive Met. Panel Today E53.8 - Deficiency of other specified B group vitamins, E55.9 - Vitamin D deficiency, unspecified, E66.09 - Other obesity due to excess calories, I10 - Essential (primary) hypertension, R73.01 - Impaired fasting glucose, Z68.32 - Body mass index [BMI] 32.0-32.9, adult Hemoglobin A1c Today E53.8 - Deficiency of other specified B group vitamins, E55.9 - Vitamin D deficiency, unspecified, E66.09 - Other obesity due to excess calories, I10 - Essential (primary) hypertension, R73.01 - Impaired fasting glucose, Z68.32 - Body mass index [BMI] 32.0-32.9, adult Vitamin D 25-OH (D2 and D3) Today E53.8 - Deficiency of other specified B group vitamins, E55.9 - Vitamin D deficiency, unspecified, E66.09 - Other obesity due to excess calories, I10 - Essential (primary) hypertension, R73.01 - Impaired fasting glucose, Z68.32 - Body mass index [BMI] 32.0-32.9, adult Vitamin B12 Today E53.8 - Deficiency of other specified B group vitamins, E55.9 - Vitamin D deficiency, unspecified, E66.09 - Other obesity due to excess calories, I10 - Essential (primary) hypertension, R73.01 - Impaired fasting glucose, Z68.32 - Body mass index [BMI] 32.0-32.9, adult LDL Cholesterol Direct Today E53.8 - Deficiency of other specified B group vitamins, E55.9 - Vitamin D deficiency, unspecified, E66.09 - Other obesity due to excess calories, I10 - Essential (primary) hypertension, R73.01 - Impaired fasting glucose, Z68.32 - Body mass index [BMI] 32.0-32.9, adult Complete Blood Count Auto Diff 5 Months E53.8 - Deficiency of other specified B group vitamins, E55.9 - Vitamin D deficiency, unspecified, E66.09 - Other obesity due to excess calories, I10 - Essential (primary) hypertension, R14.0 - Abdominal distension (gaseous), R73.01 - Impaired fasting glucose, Z68.32 - Body mass index [BMI] 32.0-32.9, adult, Z91.09 - Other allergy status, other than to drugs and biological substances Comprehensive [place]. Panel Fast 5 Months E53.8 - Deficiency of other specified B group vitamins, E55.9 - Vitamin D deficiency, unspecified, E66.09 - Other obesity due to excess calories, I10 - Essential (primary) hypertension, R14.0 - Abdominal distension (gaseous), R73.01 - Impaired fasting glucose, Z68.32 - Body mass index [BMI] 32.0-32.9, adult, Z91.09 - Other allergy status, other than to drugs and biological substances Lipid Panel 5 Months E53.8 - Deficiency of other specified B group vitamins, E55.9 - Vitamin D deficiency, unspecified, E66.09 - Other obesity due to excess calories, I10 - Essential (primary) hypertension, R14.0 - Abdominal distension (gaseous), R73.01 - Impaired fasting glucose, Z68.32 - Body mass index [BMI] 32.0-32.9, adult, Z91.09 - Other allergy status, other than to drugs and biological substances Complete Blood Count Auto Diff Today E53.8 - Deficiency of other specified B group vitamins, E55.9 - Vitamin D deficiency, unspecified, E66.09 - Other obesity due to excess calories, I10 - Essential (primary) hypertension, R73.01 - Impaired fasting glucose, Z68.32 - Body mass index [BMI] 32.0-32.9, adult Hemoglobin A1c 5 Months E53.8 - Deficiency of other specified B group vitamins, E55.9 - Vitamin D deficiency, unspecified, E66.09 - Other obesity due to excess calories, I10 - Essential (primary) hypertension, R14.0 - Abdominal distension (gaseous), R73.01 - Impaired fasting glucose, Z68.32 - Body mass index [BMI] 32.0-32.9, adult, Z91.09 - Other allergy status, other than to drugs and biological substances TSH reflex Free T4 5 Months E53.8 - Deficiency of other specified B group vitamins, E55.9 - Vitamin D deficiency, unspecified, E66.09 - Other obesity due to excess calories, I10 - Essential (primary) hypertension, R14.0 - Abdominal distension (gaseous), R73.01 - Impaired fasting glucose, Z68.32 - Body mass index [BMI] 32.0-32.9, adult, Z91.09 - Other allergy status, other than to drugs and biological substances Coding Level of Care Code Est Pt Level 4 (93305) Complex EM visit Add On G2211 Diagnoses Hypertension, essential, benign I10 B12 deficiency E53.8 Vitamin D deficiency E55.9 Impaired fasting blood sugar R73.01 Class 1 obesity due to excess calories with serious comorbidity and body mass index (BMI) of 32.0 to 32.9 in adult E66.09; Z68.32 Body mass index: BMI 32.0-32.9 Obesity classification: adult class 1 (BMI 30 - 34.9) Serious obesity comorbidity presence: with serious comorbidity Environmental allergies Z91.09 Bloating R14.0 Additional Codes NATHALIE-7 Assessment Billing - NATHALIE-7 Assessment Tool: NATHALIE-7 Assessment 24906 ([id number])
[2024-01-14 11:32] VITALS: BP 132/84; PULSE 80; O2SAT 97; BMI 32.5
== END 2024-01-14 13:49 | disposition home or self-care (01) ==
PROVIDERS: PCP Internal Medicine; Visit Provider Internal Medicine
DX: I10 Essential (primary) hypertension (principal); E53.8 Deficiency of other specified B group vitamins; E55.9 Vitamin D deficiency, unspecified; R73.01 Impaired fasting glucose; E66.09 Other obesity due to excess calories; Z68.32 Body mass index [BMI] 32.0-32.9, adult; Z91.09 Other allergy status, other than to drugs and biological substances; R14.0 Abdominal distension (gaseous)
CPT/HCPCS: 99214; G2211

== ENCOUNTER 2024-01-14 11:51 | Outpatient (REF) | payer OTHER, SELFPAY ==
[2024-01-14 13:30] LABS: MANUAL DIFF FLAG NO
[2024-01-14 13:42] LABS: Basophils Percent Auto 0.4 % (0-2); Eosinophils Absolute Auto 0.1 X10*3/uL (0.0-0.4); Hemoglobin 15.7 g/dl (14.0-18.0); Imm Gran Abs Auto 0.02 X10*3/uL (0.00-0.03); Imm Gran Pct Auto 0.3 % (0.0-0.4); Lymphocytes Percent Auto 28.5 % (20-40); Mean Corpuscular HGB Conc 34.1 g/dl (31.0-36.0); Mean Corpuscular Hemoglobin 31.3 pg (27.0-33.0); Mean Corpuscular Volume 91.8 fL (80.0-98.0); Mean Platelet Volume 9.6 fL (9.4-12.4); Monocytes Absolute Auto 0.7 X10*3/uL (0.1-1.2); Monocytes Percent Auto 10.3 % (2-11); Neutrophils Absolute Auto 4.1 x10*3/uL (2.0-8.3); Neutrophils Percent Auto 59.5 % (45-73); Platelet Count 218 X10*3/uL (160-400); Red Blood Count 5.01 X10*6/uL (4.60-5.80); Red Cell Distribution Width 13.7 % (11.0-16.0); White Blood Count 6.9 X10*3/uL (4.8-10.8)
[2024-01-14 13:57] LABS: Estimated Average Glucose 120 mg/dL; Hemoglobin A1c % 5.8 % (<6.0)
[2024-01-14 14:28] LABS: Alanine Aminotransferase 58 U/L (0-40); Albumin Level 4.4 g/dL (3.5-5.0); Alkaline Phosphatase 55 U/L (39-117); Anion Gap 13 (12-20); Aspartate Amino Transferase 28 U/L (5-37); Bilirubin Total 0.7 mg/dL (0.0-1.0); Blood Urea Nitrogen 20 mg/dL (9-16); Calcium 9.3 mg/dL (8.4-10.2); Carbon Dioxide 24 mmol/L (22-29); Chloride 106 mmol/L (96-108); Estimated Glomerular Filt Rate > 60; Glucose Random 114 mg/dL (60-115); Potassium 3.8 mmol/L (3.3-5.1); Sodium 139 mmol/L (135-145); Total Protein 7.5 g/dL (6.5-8.0)
[2024-01-14 14:51] LABS: Vitamin B12 714 pg/mL (200-900)
[2024-01-15 10:49] LABS: LDL Cholesterol Direct 121 mg/dL (<100)
[2024-01-19 12:23] LABS: Vitamin D 25-OH, D2 <4 ng/mL; Vitamin D 25-OH, D3 18 ng/mL; Vitamin D 25-OH, Total 18 ng/mL (30-100)
== END 2024-01-14 11:52 | disposition home or self-care (01) ==
LOC: HO.HMGCLDS 11:51
PROVIDERS: PCP Internal Medicine; Visit Provider Internal Medicine
DX: I10 Essential (primary) hypertension (principal); E53.8 Deficiency of other specified B group vitamins; E55.9 Vitamin D deficiency, unspecified; R73.01 Impaired fasting glucose; E66.09 Other obesity due to excess calories; Z68.32 Body mass index [BMI] 32.0-32.9, adult
CPT/HCPCS: 36415; 80053; 82306; 82607; 83036; 83721; 85025

== ENCOUNTER 2024-03-29 13:10 | Outpatient (AMB) | payer OTHER, SELFPAY ==
--- NOTE | 2024-03-29 13:16 | MHC.OFFWIV ---
Intake Vital Signs 03/29/24 13:17 Height 5 ft 9 in Weight 224 lb BMI 33.1 BP 126/82 Blood Pressure Location Rt brachial Position Sitting Pulse 71 Pulse Source Pulse Oximeter Temp 98.3 F Temp Source Oral Pulse Oximetry (%) 98 Oxygen Delivery Method Room Air Intake Visit Reasons: EP Fatigue, pain back of head/feeling off Intake Note: pt c/o fatigue, pain in back of head. Intermittent for few months. Gets better when I eat a hard candy Patient Tobacco Use Status: Never used Tobacco Allergies No Known Allergies Allergy (Verified 03/29/24 13:16) Do you need a note to return to daycare/school/sports/work: No HPI HPI Comments History of Present Illness Details Patient is a 58yo M who presents with concerns of hypoglycemic events He presents to office with unwell feeling Few months ago onset and it occured once a month Occurred twice today so he decided to come in States feels weak with associated +occasional headache R sided and aching into shoulders bilaterally States sometimes he has some wheezing without CP, SOB or palpitations associated these symptoms improved when he relaxed States a few weeks ago it occurred to him and someone told him to eat sugar and he said after 10 minutes he felt much better after eating candy He sees a PCP here; Dr Catherine; last labs was january 2024 and labs showed A1C of 5.8 No HT or syncope No CP, SOB or palpitations No symptoms currently Has been taking medications as prescribed No symptoms currently but last episode was 1 hour ago PFSH Medical History Bone spur of ankle HTN (hypertension) Surgical History Hx of colonoscopy Family History Other Bone spur of ankle Social History Housing: House Patient Tobacco Use Status: Never used Tobacco e-Cigarette/Vaping Use: Never Used service: No Current occupational status: employed 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 Cognitive needs: No Hearing needs: No Vision needs: No Review of Systems Const Reports body aches, Denies chills, Reports fatigue, Denies fever(s), Denies frequent falls and Reports headache(s) Eyes Denies blurry vision and Denies diplopia ENT Denies vertigo, Denies dizziness, Denies otalgia, Reports headache(s), Denies nasal congestion and Denies sore throat Card Denies chest pain, Denies syncope, Denies rapid heart rate, Denies lightheadedness and Denies dyspnea Resp Denies cough and Denies dyspnea GI Denies nausea and Denies vomiting Musc Denies myalgias and Reports muscle weakness (generalized shoulders) Skin/Breast Denies rash Neuro Denies confusion, Denies vertigo, Denies dizziness, Denies syncope, Denies frequent falls, Reports headache(s), Denies lack of coordination and Denies focal weakness Psych Denies confusion Endo Reports fatigue Physical Exam Vital Signs: Last Vital Signs Temp 98.3 F 03/29/24 13:17 Pulse 71 03/29/24 13:17 BP 126/82 03/29/24 13:17 Pulse Ox 98 03/29/24 13:17 Oxygen Delivery Method Room Air 03/29/24 13:17 BMI result Body Mass Index 33.1 General: Non-toxic, NAD. Speaking full sentences. Skin: Warm dry throughout Eye: PERRL, EOMI HENT: Airway patent. Uvula midline. No pharyngeal erythema or edema. No BUSINESS TECHNOLOGY ARCHITECT. Bilateral canals clear. TM non-erythematous, non-bulging. No TM perforation or hemotympanum noted. Respiratory: CTA bilaterally. No wheezes, rales or rhonchi Cardiac: RRR. No murmur. No calf tenderness Neurology: A/O x 3. Finger to nose tracing equally. Negative pronator drift. CN 2-12 grossly intact. No aphasia or facial droop. Equal strength with squash centre manager/ flexion/extension of upper extremities. Gait without abnormality Psych: Good mood and affect Const General: No confusion Orientation/consciousness: No confusion Neuro General: No confusion Results AMB Random Glucose (hemocue) AMB Random Glucose (hemocue) 93 mg/dL Last Edit by Julio César Diaz CMA on 03/29/24 13:57 Results Reviewed Results Reviewed: Laboratory Last Values Random Glu (Clinic) 93 mg/dL 03/29/24 13:44 Assessment & Plan Assessment & Plan (1) Weakness: Code(s): R53.1 - Weakness Plan: Patient seen and evaluated. No neuro deficit on examination EKG: EKG shows NSR No STEMI. + possible left atrial enlargement and incomplete RBBB September 2022 pt had noted incomplete RBBB without change POC glucose: 93 Discussed with pt we will order cbc, bmp, tick He is advised to go to ER if symptoms arise and near syncope of work up. Will send note to PCP for follow up Patient gave verbal understanding and had no additional questions or concerns at time of discharge All questions answered Orders: Orders Basic Metabolic Panel Today R53.1 - Weakness AMB EKG-In Office Today R53.1 - Weakness AMB Random Glucose (hemocue) Today Z13.9 - Encounter for screening, unspecified Complete Blood Count Auto Diff Today R53.1 - Weakness Tick-borne Disease Molecular Today R53.1 - Weakness Coding Level of Care Code Est Pt Level 3 (31277) Diagnoses Weakness R53.1
[2024-03-29 13:17] VITALS: BP 126/82; PULSE 71; TEMP 36.8; O2SAT 98; BMI 33.1
== END 2024-03-29 14:18 | disposition home or self-care (01) ==
PROVIDERS: PCP Internal Medicine; Visit Provider Physician Assistant
DX: R53.1 Weakness (principal); Z13.9 Encounter for screening, unspecified
CPT/HCPCS: 82948; 99213

== ENCOUNTER 2024-03-29 14:05 | Outpatient (REF) | payer OTHER, SELFPAY ==
[2024-03-29 15:54] LABS: MANUAL DIFF FLAG NO
[2024-03-29 16:04] LABS: Basophils Percent Auto 0.5 % (0-2); Eosinophils Absolute Auto 0.2 X10*3/uL (0.0-0.4); Eosinophils Percent Auto 2.3 % (0-4); Hematocrit 43.2 % (42.0-52.0); Imm Gran Abs Auto 0.03 X10*3/uL (0.00-0.03); Imm Gran Pct Auto 0.5 % (0.0-0.4); Lymphocytes Absolute Auto 2.2 X10*3/uL (1.2-4.9); Lymphocytes Percent Auto 33.5 % (20-40); Mean Corpuscular HGB Conc 34.7 g/dl (31.0-36.0); Mean Corpuscular Hemoglobin 31.9 pg (27.0-33.0); Mean Corpuscular Volume 91.9 fL (80.0-98.0); Monocytes Absolute Auto 0.7 X10*3/uL (0.1-1.2); Monocytes Percent Auto 10.3 % (2-11); Neutrophils Absolute Auto 3.5 x10*3/uL (2.0-8.3); Neutrophils Percent Auto 52.9 % (45-73); Platelet Count 252 X10*3/uL (160-400); Red Cell Distribution Width 13.2 % (11.0-16.0); White Blood Count 6.6 X10*3/uL (4.8-10.8)
[2024-03-29 16:24] LABS: Anion Gap 14 (12-20); Blood Urea Nitrogen 17 mg/dL (9-16); Calcium 9.5 mg/dL (8.4-10.2); Carbon Dioxide 21 mmol/L (22-29); Chloride 108 mmol/L (96-108); Estimated Glomerular Filt Rate > 60; Glucose Random 94 mg/dL (60-115); Potassium 4.2 mmol/L (3.3-5.1); Sodium 139 mmol/L (135-145)
[2024-04-04 22:19] LABS: A. Phagocytphilium DNA,RT-PCR NOT DETECTED (NOT DETECTED); Babesia Microti DNA, RT-PCR NOT DETECTED (NOT DETECTED); Borrelia Miyamotoi,DNA RT-PCR NOT DETECTED (NOT DETECTED); E.Chaffeensis DNA RT-PCR NOT DETECTED (NOT DETECTED); Lyme(Borrelia ssp)DNA RT-PCR NOT DETECTED (NOT DETECTED)
== END 2024-03-29 14:06 | disposition home or self-care (01) ==
LOC: HO.HMGCLDS 14:05
PROVIDERS: PCP Internal Medicine; Visit Provider Physician Assistant
DX: R53.1 Weakness (principal)
CPT/HCPCS: 36415; 80048; 85025; 87468; 87469; 87478; 87484; 87798

== ENCOUNTER 2024-03-31 13:14 | Outpatient (AMB) | payer OTHER, SELFPAY ==
[2024-03-31 13:16] VITALS: BP 140/76; PULSE 95; O2SAT 96; BMI 32.4
--- NOTE | 2024-03-31 13:16 | MHC.PC.OV ---
Vital Signs 03/31/24 13:16 Height 5 ft 9 in Weight 219 lb 2 oz BMI 32.4 BP 140/76 H Blood Pressure Location Lt brachial Position Sitting Pulse 95 Pulse Source Pulse Oximeter Pulse Oximetry (%) 96 Oxygen Delivery Method Room Air Intake Visit Reasons: walk in f/u Allergies No Known Allergies Allergy (Verified 03/31/24 13:18) Medication List - Last Reconciled 03/31/24 by Cleve Catherine MD blood pressure monitor (Blood Pressure Kit) Use to check blood pressure daily cholecalciferol (vitamin D3) 50 mcg PO ONCE cyanocobalamin (vitamin B-12) 1,000 mcg PO 2XW 90 days prednisolone acetate 1% drps ophthalmic (eye) testosterone cypionate 400 mg IM Q3W testosterone enanthate 50 mg subcut QWEEK valsartan 80 mg (2 x 40 mg) PO DAILY 90 days vibegron (Gemtesa) 75 mg PO BEDTIME Tobacco use date assessed: 03/31/24 Dental Screening Dental Screen Date: 03/31/24 Did you have a dental visit in the last 12 months?: Yes Did you have a dental problem in the last 6 months where you did not have access to dental care?: No Was dental information given to patient?: Patient has dentist HPI walk in f/u HPI Details Patient is a 58-year-old gentleman came in today to be evaluated after going to walk-in clinic couple of days ago Patient says that he was feeling weak so he came in He had EKG done and labs were ordered Patient was discharged after evaluation His labs does not show any electrolyte abnormality Patient says that for the past 2 weeks he also having frequent bowel movement And queasy stomach however there is no nausea no vomiting no fever no chills He says that the bowels are sometimes house sometimes normal 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 In couple of weeks if he still have frequency of bowel movement patient is to give me a call. 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 1. Little interest or pleasure in doing things: several days 2. Feeling down, depressed, or hopeless: several days 5. Poor appetite or overeating: several days 6. Feeling bad about yourself - or that you are a failure or have let yourself or your family down: several days 7. Trouble concentrating on things, such as reading the newspaper or watching television: not at all 8. Moving or speaking so slowly that other people could have noticed. Or the opposite - being so fidgety or restless that you have been moving around a lot more than usual: several days 9. Thoughts that you would be better off or of hurting yourself in some way: not at all Depression Screening Interpretation: Negative Depression Screening Done: Yes 18807 - PHQ-9 Billing: Yes Source: Developed by Drs. Erasmo Morel, Marbella Rutherford, Rich Mann and colleagues, with an educational lane from [email or web address]. Thrive Questionnaire Date Thrive assessed: 03/31/24 I am a: Patient What is your living situation today?: I have a steady place to live Within the past 12 months, did the food you bought not last and you didn't have the money to get more?: Sometimes True Within the past 12 months, did you worry whether your food would run out before you got money to buy more?: Sometimes True Do you have trouble paying for medicines?: No Do you have trouble getting transportation to medical appointments?: No Do you have trouble paying your heating and electricity bill?: No Do you have trouble taking care of your child, family member or friend?: No Do you have trouble with day-to-day activities such as bathing, preparing meals, shopping, managing finances, etc.?: No Are you currently unemployed and looking for a job?: No Are you interested in more education?: Yes Please select the resources that you would like help with: Food Currently or been in a relationship where the following occur: No concerns reported THRIVE Score: 2 AUDIT C Alcohol Use Questionnaire (AUDIT-C) 1. How often do you have a drink containing alcohol?: Never 3. How often do you have six or more drinks on one occasion?: Never Total Score: 0 Score Reviewed/Action Taken: Yes NATHALIE-7 AMB Questionnaire NATHALIE-7 Date NATHALIE - 7 assessed: 03/31/24 Feeling nervous, anxious, or on edge: 1 = Several days Not being able to stop or control worryin = Several days Worrying too much about different things: 1 = Several days Trouble relaxin = Not at all Being so restless that it is hard to sit still: 1 = Several days Becoming easily annoyed or irritable: 0 = Not at all Feeling afraid as if something awful might happen: 0 = Not at all Total NATHALIE-7 score (0-4 normal; 5-9 mild; 10-14 moderate; 15-21 severe): 4 Source: Developed by Drs. Erasmo Morel, Marbella Rutherford, Rich Mann and colleagues, with an educational lane from [email or web address]. NATHALIE-7 Assessment Billing NATHALIE-7 Assessment Tool: NATHALIE-7 Assessment 33187 Review of Systems Const Denies chills and Denies fever(s) ENT Denies epistaxis and Denies nasal discharge Card Denies chest pain Resp Denies chest congestion, Denies cough and Denies hemoptysis GI Denies diarrhea and Denies nausea Skin/Breast Denies rash Neuro Reports no additional complaints Psych Reports no additional complaints Endo Reports no additional complaints Physical exam (Primary Care) Vital Signs: Last Vital Signs Pulse 95 03/31/24 13:16 BP 140/76 H 03/31/24 13:16 Pulse Ox 96 03/31/24 13:16 Oxygen Delivery Method Room Air 03/31/24 13:16 BMI result Body Mass Index 32.4 Tobacco/Smoking Status: Tobacco use Status Tobacco use date assessed 03/31/24 03/31/24 13:19 Patient Tobacco Use Status Never used Tobacco 03/31/24 13:19 e-Cigarette/Vaping Use Never Used 03/31/24 13:19 Depression Screening Interpretation: Negative Thrive Assessment: Date of Thrive Assessment Date Thrive assessed 03/31/24 03/31/24 13:19 Currently or been in a relationship where the following occur: No concerns reported Const General: cooperative, comfortable and no acute distress Orientation/consciousness: patient oriented x3 HENMT Head: Yes normocephalic Eyes General: appearance normal, both eyes and all related structures Neck Neck: Yes supple Resp Effort & Inspection: normal respiratory effort, no cough and no stridor Cardio Rhythm: regular rhythm Heart sounds: S1 normal heart sound present and S2 normal heart sound present Skin General skin exam: turgor normal Neuro General: patient oriented x3, tone normal and moves all extremities Extrem Right lower extremity: no edema Left lower extremity: no edema Assessment and Plan Assessment & Plan (1) Weakness: Code(s): R53.1 - Weakness (2) Bloating: Code(s): R14.0 - Abdominal distension (gaseous) (3) Frequent bowel movements: Code(s): R19.4 - Change in bowel habit Plan Patient is a 58-year-old gentleman came in today to be evaluated after going to walk-in clinic couple of days ago Patient says that he was feeling weak so he came in He had EKG done and labs were ordered Patient was discharged after evaluation His labs does not show any electrolyte abnormality Patient says that for the past 2 weeks he also having frequent bowel movement And queasy stomach however there is no nausea no vomiting no fever no chills He says that the bowels are sometimes house sometimes normal 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 In couple of weeks if he still have frequency of bowel movement patient is to give me a call. Coding Level of Care Code Est Pt Level 3 (18691) Diagnoses Weakness R53.1 Bloating R14.0 Frequent bowel movements R19.4 Additional Codes NATHALIE-7 Assessment Billing - NATHALIE-7 Assessment Tool: NATHALIE-7 Assessment [id number] ([id number])
== END 2024-03-31 13:45 | disposition home or self-care (01) ==
PROVIDERS: PCP Internal Medicine; Visit Provider Internal Medicine
DX: R53.1 Weakness (principal); R14.0 Abdominal distension (gaseous); R19.4 Change in bowel habit
CPT/HCPCS: 99213

== ENCOUNTER 2024-04-28 15:44 | Outpatient (AMB) | payer OTHER, SELFPAY ==
--- NOTE | 2024-04-28 15:45 | AM.OFFWIN_ITS ---
Intake Vital Signs 04/28/24 15:50 Weight 232 lb BP 122/86 Blood Pressure Location Lt brachial Position Sitting Pulse 112 H Pulse Source Pulse Oximeter Pulse Oximetry (%) 94 Oxygen Delivery Method Room Air Intake Visit Reasons: Bilateral feet pain & numbness Intake Note: Patient here for bilat feet swelling and numbness on bottom of left foot. Patient Tobacco Use Status: Never used Tobacco Allergies No Known Allergies Allergy (Verified 04/28/24 15:51) Do you need a note to return to daycare/school/sports/work: No HPI HPI Comments History of Present Illness Details 58 y/o male patient who presents to the walk in clinic with c/o bilateral lower extremities edema. Denies SOB, wheezing, CP or palpitation. 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 Cognitive needs: No Hearing needs: No Vision needs: No Review of Systems Const All systems reviewed & are unremarkable except as noted in HPI and below Physical Exam Vital Signs: Last Vital Signs Pulse 112 H 04/28/24 15:50 BP 122/86 04/28/24 15:50 Pulse Ox 94 04/28/24 15:50 Oxygen Delivery Method Room Air 04/28/24 15:50 Const General: cooperative, comfortable and no acute distress Nutritional Appearance: obese Orientation/consciousness: patient oriented x3 Resp Effort & Inspection: normal respiratory effort Auscultation: clear to auscultation bilaterally, no crackles, no rales, no rhonchi and no wheezes Cardio Heart sounds: S1 normal heart sound present and S2 normal heart sound present Neuro General: patient oriented x3, gait normal and moves all extremities Extrem Right lower extremity: lower leg Details: pitting edema Details: 3+; no erythema and no tenderness and ankle Details: edema Details: pitting and 3+; no ecchymosis and no crepitus Left lower extremity: lower leg Details: pitting edema Details: 3+; no erythema, no tenderness and no crepitus and ankle Details: pitting edema Details: pitting and 3+; no tenderness, no swelling and no crepitus Psych Speech and movement: Normal speech and movement present Assessment & Plan Assessment & Plan (1) Peripheral edema: Code(s): R60.0 - Localized edema Plan: Pt has Compression stockings at home. Advised him to start wearing them Ordered Furosemide for few days Elevate extremities Avoid prolonged sitting Avoid Sodium rich foods. F/U with PCP Medications: New furosemide 40 mg PO DAILY 10 tabs 0RF R60.0 - Localized edema Coding Level of Care Code Est Pt Level 3 (38648) Diagnoses Peripheral edema R60.0 Time Spent (min) 15
[2024-04-28 15:50] VITALS: BP 122/86; PULSE 112; O2SAT 94
== END 2024-04-28 16:21 | disposition home or self-care (01) ==
PROVIDERS: PCP Internal Medicine; Visit Provider Nurse Practitioner Family
DX: R60.0 Localized edema (principal)
CPT/HCPCS: 99213

== ENCOUNTER 2024-05-23 10:21 | Outpatient (AMB) | payer OTHER, SELFPAY ==
--- NOTE | 2024-05-23 10:47 | MHC.OFFWIV ---
Intake Vital Signs 05/23/24 10:48 Height 5 ft 9 in Weight 225 lb BMI 33.2 BP 130/90 H Blood Pressure Location Rt brachial Position Sitting Pulse 68 Pulse Source Pulse Oximeter Pulse Oximetry (%) 97 Oxygen Delivery Method Room Air Intake Visit Reasons: EP headache, dizzy Elevated BP Intake Note: Patient here for elevated BP the past couple of days, today he went to see a specialist and was 161/100 Patient Tobacco Use Status: Never used Tobacco Allergies No Known Allergies Allergy (Verified 04/28/24 15:51) HPI HPI Comments History of Present Illness Details 58 y/o male patient who presents to the walk in clinic with c/o elevated BP, dizziness, and Headaches. He went to see his [employer] this morning and BP was around 168/102. Pt worried. H/o BP and takes medication. Pt also reports snoring at night and wakes up frequently to urinate. 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 Cognitive needs: No Hearing needs: No Vision needs: No Review of Systems Const All systems reviewed & are unremarkable except as noted in HPI and below Physical Exam Vital Signs: Last Vital Signs Pulse 68 05/23/24 10:48 BP 130/90 H 05/23/24 10:48 Pulse Ox 97 05/23/24 10:48 Oxygen Delivery Method Room Air 05/23/24 10:48 BMI result Body Mass Index 33.2 Const General: cooperative, comfortable and no acute distress Nutritional Appearance: obese Orientation/consciousness: patient oriented x3 Resp Effort & Inspection: normal respiratory effort and able to speak in complete sentences Auscultation: clear to auscultation bilaterally Cardio Heart sounds: S1 normal heart sound present and S2 normal heart sound present Skin General skin exam: no rashes or lesions noted Neuro General: patient oriented x3, gait normal and moves all extremities Psych Speech and movement: Normal speech and movement present Assessment & Plan Assessment & Plan (1) Hypertension, essential, benign: Code(s): I10 - Essential (primary) hypertension Plan: Needs f/u with PCP Stable today. Might need more HTN medications. Lifestyle changes DASH diet Weight loss (2) Generalized headaches: Code(s): R51.9 - Headache, unspecified Plan: Might due to RADHA, will benefit from Sleed study Acetaminophen for pain relief. Coding Level of Care Code Est Pt Level 3 (83405) Diagnoses Hypertension, essential, benign I10 Generalized headaches R51.9 Time Spent (min) 15
[2024-05-23 10:48] VITALS: BP 130/90; PULSE 68; O2SAT 97; BMI 33.2
== END 2024-05-23 11:19 | disposition home or self-care (01) ==
PROVIDERS: PCP Internal Medicine; Visit Provider Nurse Practitioner Family
DX: I10 Essential (primary) hypertension (principal); R51.9 Headache, unspecified
CPT/HCPCS: 99213

== ENCOUNTER 2024-06-02 10:13 | Outpatient (AMB) | payer OTHER, SELFPAY ==
[2024-06-02 10:15] VITALS: BP 132/78; PULSE 80; O2SAT 97; BMI 32.7
--- NOTE | 2024-06-02 10:15 | MHC.PC.OV ---
Vital Signs 06/02/24 10:15 Height 5 ft 9 in Weight 221 lb 2 oz BMI 32.7 BP 132/78 Blood Pressure Location Lt brachial Position Sitting Pulse 80 Pulse Source Pulse Oximeter Pulse Oximetry (%) 97 Oxygen Delivery Method Room Air Intake Visit Reasons: swollen legs Allergies No Known Allergies Allergy (Verified 06/02/24 10:16) Medication List - Last Reconciled 06/02/24 by Cleve Catherine MD blood pressure monitor (Blood Pressure Kit) Use to check blood pressure daily cholecalciferol (vitamin D3) 50 mcg PO ONCE cyanocobalamin (vitamin B-12) 1,000 mcg PO 2XW 90 days furosemide 40 mg PO DAILY prednisolone acetate 1% drps ophthalmic (eye) testosterone cypionate 400 mg IM Q3W vibegron (Gemtesa) 75 mg PO BEDTIME Tobacco use date assessed: 06/02/24 Dental Screening Dental Screen Date: 06/02/24 Did you have a dental visit in the last 12 months?: Yes Did you have a dental problem in the last 6 months where you did not have access to dental care?: No Was dental information given to patient?: Patient has dentist HPI swollen legs HPI Details Patient is a 58-year-old gentlemen who keeps having swelling of his ankle off and on since past few months He has visited walk-in clinic few times for that and was prescribed furosemide which does help Patient says that when he sits down leaning forward he feels pressure in his lower legs There is no orthopnea no shortness a breath no chest pain He is also complaining of pain upper part of his abdomen off and on Patient still have his call better Last he had echocardiogram which showed 55% ejection fraction His EKG from March and today has no changes but patient have incomplete right bundle branch block I am ordering ultrasound of his abdomen Echocardiogram and stress test for the heart Patient had labs done in March reviewed again Vascular specialist referral placed Patient was encouraged to lose weight He is to return in 1 month to go over the reports [facility] Medical History Bone spur of ankle HTN (hypertension) Surgical History Hx of colonoscopy Family History Other Bone spur of ankle Social History Housing: House Patient Tobacco Use Status: Never used Tobacco e-Cigarette/Vaping Use: Never Used service: No Current occupational status: employed 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 1. Little interest or pleasure in doing things: not at all 2. Feeling down, depressed, or hopeless: not at all 3. Trouble falling or staying asleep, or sleeping too much: several days 4. Feeling tired or having little energy: more than half the days 5. Poor appetite or overeating: not at all 6. Feeling bad about yourself - or that you are a failure or have let yourself or your family down: not at all 7. Trouble concentrating on things, such as reading the newspaper or watching television: not at all 8. Moving or speaking so slowly that other people could have noticed. Or the opposite - being so fidgety or restless that you have been moving around a lot more than usual: not at all 9. Thoughts that you would be better off or of hurting yourself in some way: not at all Total score: 3 Depression Screening Interpretation: Negative Depression Screening Done: Yes 15949 - PHQ-9 Billing: Yes Source: Developed by Drs. Erasmo Morel, Marbella Rutherford, Rich Mann and colleagues, with an educational lane from [employer]. Thrive Questionnaire Date Thrive assessed: 06/02/24 I am a: Patient What is your living situation today?: I have a steady place to live Within the past 12 months, did the food you bought not last and you didn't have the money to get more?: Sometimes True Within the past 12 months, did you worry whether your food would run out before you got money to buy more?: Sometimes True Do you have trouble paying for medicines?: No Do you have trouble getting transportation to medical appointments?: No Do you have trouble paying your heating and electricity bill?: No Do you have trouble taking care of your child, family member or friend?: No Do you have trouble with day-to-day activities such as bathing, preparing meals, shopping, managing finances, etc.?: No Are you currently unemployed and looking for a job?: No Are you interested in more education?: Yes Please select the resources that you would like help with: Food Currently or been in a relationship where the following occur: No concerns reported THRIVE Score: 2 AUDIT C Alcohol Use Questionnaire (AUDIT-C) 1. How often do you have a drink containing alcohol?: Never 3. How often do you have six or more drinks on one occasion?: Never Total Score: 0 Score Reviewed/Action Taken: Yes NATHALIE-7 AMB Questionnaire NATHALIE-7 Date NATHALIE - 7 assessed: 06/02/24 Feeling nervous, anxious, or on edge: 1 = Several days Not being able to stop or control worryin = Several days Worrying too much about different things: 1 = Several days Trouble relaxin = Not at all Being so restless that it is hard to sit still: 1 = Several days Becoming easily annoyed or irritable: 0 = Not at all Feeling afraid as if something awful might happen: 0 = Not at all Total NATHALIE-7 score (0-4 normal; 5-9 mild; 10-14 moderate; 15-21 severe): 4 Source: Developed by Drs. Erasmo Morel, Marbella Rutherford, Rich Mann and colleagues, with an educational lane from [employer]. NATHALIE-7 Assessment Billing NATHALIE-7 Assessment Tool: NATHALIE-7 Assessment 80322 Review of Systems Const Denies chills and Denies fever(s) ENT Denies epistaxis and Denies nasal discharge Card Denies chest pain Resp Denies chest congestion, Denies cough and Denies hemoptysis GI Denies nausea Skin/Breast Denies rash Neuro Reports no additional complaints Psych Reports no additional complaints Endo Reports no additional complaints Physical exam (Primary Care) Vital Signs: Last Vital Signs Pulse 80 06/02/24 10:15 BP 132/78 06/02/24 10:15 Pulse Ox 97 06/02/24 10:15 Oxygen Delivery Method Room Air 06/02/24 10:15 BMI result Body Mass Index 32.7 Tobacco/Smoking Status: Tobacco use Status Tobacco use date assessed 06/02/24 06/02/24 10:20 Patient Tobacco Use Status Never used Tobacco 06/02/24 10:20 e-Cigarette/Vaping Use Never Used 06/02/24 10:20 PHQ-9: PHQ-9 Score PHQ-9: Total score 3 06/02/24 11:05 Depression Screening Interpretation: Negative Thrive Assessment: Date of Thrive Assessment Date Thrive assessed 06/02/24 06/02/24 10:20 Currently or been in a relationship where the following occur: No concerns reported Const General: cooperative, comfortable and no acute distress Orientation/consciousness: patient oriented x3 HENMT Head: Yes normocephalic Eyes General: appearance normal, both eyes and all related structures Neck Neck: Yes supple Resp Effort & Inspection: normal respiratory effort, no cough and no stridor Cardio Rhythm: regular rhythm Heart sounds: S1 normal heart sound present and S2 normal heart sound present GI Other: Abdomen is soft nontender also positive Skin General skin exam: turgor normal Neuro General: patient oriented x3, tone normal and moves all extremities Extrem Other: Patient is on furosemide, that is why swelling is minimal he tells me Assessment and Plan Assessment & Plan (1) Abnormal EKG: Code(s): R94.31 - Abnormal electrocardiogram [ECG] [EKG] (2) Swelling of both ankles: Code(s): M25.471 - Effusion, right ankle; M25.472 - Effusion, left ankle (3) Upper abdominal pain: Code(s): R10.10 - Upper abdominal pain, unspecified (4) Right bundle branch block: Code(s): I45.10 - Unspecified right bundle-branch block Plan Patient is a 58-year-old gentlemen who keeps having swelling of his ankle off and on since past few months He has visited walk-in clinic few times for that and was prescribed furosemide which does help Patient says that when he sits down leaning forward he feels pressure in his lower legs There is no orthopnea no shortness a breath no chest pain He is also complaining of pain upper part of his abdomen off and on Patient still have his call better Last he had echocardiogram which showed 55% ejection fraction His EKG from March and today has no changes but patient have incomplete right bundle branch block I am ordering ultrasound of his abdomen Echocardiogram and stress test for the heart Patient had labs done in March reviewed again Vascular specialist referral placed Patient was encouraged to lose weight He is to return in 1 month to go over the reports 46 minutes spent in care of this patient Orders: Orders US abdomen complete Today R10.10 - Upper abdominal pain, unspecified CA echo transthoracic complete Today I10 - Essential (primary) hypertension, I45.10 - Unspecified right bundle-branch block, M25.471 - Effusion, right ankle, M25.472 - Effusion, left ankle, R94.31 - Abnormal electrocardiogram [ECG] [EKG] CA stress test Today I45.10 - Unspecified right bundle-branch block, M25.471 - Effusion, right ankle, M25.472 - Effusion, left ankle, R94.31 - Abnormal electrocardiogram [ECG] [EKG] Referrals Vascular Surgery Referral M25.471 - Effusion, right ankle, M25.472 - Effusion, left ankle Medications: Changed From furosemide 40 mg PO DAILY 10 tabs 0RF R60.0 - Localized edema To furosemide 20 mg PO DAILY PRN 30 tabs 0RF edema 30 days R60.0 - Localized edema Coding Level of Care Code Est Pt Level 5 (51800) Diagnoses Abnormal EKG R94.31 Swelling of both ankles M25.471; M25.472 Upper abdominal pain R10.10 Right bundle branch block I45.10 Additional Codes NATHALIE-7 Assessment Billing - NATHALIE-7 Assessment Tool: NATHALIE-7 Assessment [id number] ([id number])
== END 2024-06-02 10:57 | disposition home or self-care (01) ==
PROVIDERS: PCP Internal Medicine; Visit Provider Internal Medicine
DX: R94.31 Abnormal electrocardiogram [ECG] [EKG] (principal); M25.471 Effusion, right ankle; M25.472 Effusion, left ankle; R10.10 Upper abdominal pain, unspecified; I45.10 Unspecified right bundle-branch block

== ENCOUNTER → 2024-06-02 10:13 | Outpatient (BNVA) | payer OTHER, SELFPAY | PROVIDERS: PCP Internal Medicine; Visit Provider Internal Medicine | DX: M25.471 Effusion, right ankle (principal); M25.472 Effusion, left ankle; R94.31 Abnormal electrocardiogram [ECG] [EKG]; R10.10 Upper abdominal pain, unspecified; I45.10 Unspecified right bundle-branch block | CPT/HCPCS: 96127; 99212 ==

== ENCOUNTER 2024-06-20 09:12 | Outpatient (REF) | payer OTHER, SELFPAY ==
--- NOTE | ~2024-06-20 | US_ITS ---
EXAMINATION: US ABDOMEN COMPLETE CLINICAL INFORMATION: Upper abdominal pain, unspecified. COMPARISON: None available. TECHNIQUE: Real-time imaging of the abdominal viscera. FINDINGS: PANCREAS: The visualized pancreas appears unremarkable but the pancreatic tail is obscured by bowel gas. ABDOMINAL AORTA: The proximal, mid, and distal segments are normal in caliber. INFERIOR VENA CAVA: Visualized portions are normal. LIVER: The liver is normal in size. The liver contour is normal. There is diffuse increased liver parenchymal echogenicity, consistent with hepatic steatosis. No focal hepatic lesion. There is no intrahepatic biliary duct dilatation seen. GALLBLADDER: The gallbladder is physiologically distended without evidence of stones, sludge, polyps, wall thickening or pericholecystic fluid. COMMON BILE DUCT: Normal in caliber measuring 0.3 cm in diameter. RIGHT KIDNEY: No hydronephrosis. No renal calculi or focal parenchymal lesions. The kidney measures 10.8 cm in maximum dimension. LEFT KIDNEY: No hydronephrosis or renal calculi. The kidney measures 11.4 cm in maximum dimension. A benign mid renal 1.4 cm Bosniak class I renal cyst is noted which requires no additional imaging or follow up. No solid renal masses are seen. SPLEEN: Normal. The spleen measures 10.1 cm in maximum dimension. FREE FLUID: None. US/US abdomen complete IMPRESSION: Hepatic steatosis. Electronically signed by: Jimmie Knox MD 08/12/2024 10:43 AM EST
== END 2024-06-20 09:13 | disposition home or self-care (01) ==
LOC: HO.US 09:12
PROVIDERS: PCP Internal Medicine; Visit Provider Internal Medicine
DX: R10.10 Upper abdominal pain, unspecified (principal)
CPT/HCPCS: 76700

== ENCOUNTER → 2024-07-04 08:54 | Outpatient (REF) | payer OTHER, SELFPAY ==
--- NOTE | 2024-07-04 08:56 | CA_ITS ---
Acquisition Time: 2024-07-04 09:43:51 Total Exercise Time: 00:07:34 Test Indications: ABN EKG, IRBBB Medications: Protocol: JIM Max HR: 164 BPM 101% of Pred: 162 BPM Max BP: 174/074 mmHG Max Work Load: 9.4 METS Exercise stress test with exercise 7 min 34 sec of Jim protocol, achieving 101% MPHR, without anginal symptoms, without arrythmia, with normotensive response to exercise, without EKG changes meeting criteria for ischemia. Test reviewed with Dr Rogers Referred By: Cleve Catherine Overread By: DAYRON VASQUES
--- NOTE | 2024-07-04 08:56 | CA_ITS ---
Transthoracic Echocardiogram Patient (Last, First, Middle): Haile Cadena, Gender: Male Date of : 1965 Age: 58 Procedure Date: 07/04/2024 Procedure Type: Transthoracic Echocardiogram Location: OP Height: 175.26 cm Weight: 95.26 kg BSA: 2.11 m2 Heart Rate: bpm BP: 128 / 82 mmHg Box Stamper: TO Referring MD: Cleve Catherine MD Symptoms: M25.471 - Effusion, right ankle Study Quality: Adequate ECG Rhythm: Sinus Conclusions: - The left ventricular systolic function is normal. The calculated ejection fraction is 55% by biplane method. - No obvious valvular pathology seen on this study. Findings Left Ventricle Normal left ventricular cavity size. The left ventricular systolic function is normal. The calculated ejection fraction is 55% by biplane method. There is no evidence of regional wall motion abnormalities. Diastolic function is normal for age. There is mild septal asymmetric hypertrophy. Right Ventricle Normal right ventricular cavity size and systolic function. Atria Both atria are normal in size. Aortic Valve There is a normal trileaflet aortic valve. There is no aortic valve stenosis. There is no aortic valve regurgitation. Mitral Valve The mitral valve appears normal. There is no mitral valve regurgitation. There is no mitral valve stenosis. Pulmonic Valve The pulmonic valve is likely normal. There is trace pulmonic valve regurgitation. Tricuspid Valve There is mild tricuspid valve regurgitation. There is no evidence of pulmonary hypertension. Great Vessels The asc aorta and aortic arch are normal in size. Venous The inferior vena cava is normal in size and collapses greater than 50% with inspiration. Pericardium/Pleural There is no evidence of pericardial effusion. Prior Study Comparison No significant change compared to prior study dated: 10/13/2022. Recommendations, Care & Conclusions No obvious valvular pathology seen on this study. Measurements 2D Linear Measurements IVSd: 0.94 0.6-0.9/0.6-1.0 cm LVIDd: 4.31 3.9-5.3/4.2-5.9 cm LVIDd Index: 2.04 2.4-3.2/2.2-3.1 cm/m2 LVIDs: 2.87 2.0-3.6 cm LVPWd: 0.88 0.7-1.1 cm LA Diam: 3.10 2.7-3.8/3.0-4.0 cm LAIDs Index: 1.47 1.5-2.3 cm/m2 LV Mass: 155.71 67-162/88-224 g LV Mass Index: 73.80 43-95/49-115 g/m2 LVOT Diam: 2.30 3.0+(-)1.3 cm 2D Systolic Function EF 4C: 53.00 >55% EF 2C: 56.20 >55% EF BiP: 54.60 >55% Mitral Valve MV Pk E: 0.64 MV PK A: 0.49 MV Decel Time: 198.00 E/A: 1.30 E'Lateral: 8.38 E'Medial: 6.85 E/E' Med: 9.40 E/E' Lat: 7.70 PHT: 58.00 MVA PHT: 3.79 Decel [place]: 3.25 Aortic Valve AoV Pk Junior: 1.12 AoV Mn Junior: 0.77 AoV VTI: 0.23 AoV Pk Grad: 5.00 Aov Mn Grad: 3.00 DENNY Cont.VTI: 3.40 LVOT LVOT Pk Junior: 0.94 LVOT Mn Junior: 0.61 LVOT VTI: 0.19 LVOT Pk Grad: 4.00 LVOT Mn Grad: 2.00 LVOT Diam: 2.30 LVOT Area: 4.15 Diastolic Function MV Pk E: 0.64 MV Pk A: 0.49 E/A: 1.30 E'Medial: 6.85 E/E' Med: 9.40 E' Laterial: 8.38 E/E' Lat: 7.70 Right Ventricle TAPSE (mm): 17.80 TVS' Junior: 10.80 Tricuspid Valve TR Pk Junior: 2.04 TR Pk Grad: 17.00 RA Press: 3.00 RVSP: 20.00 Great Vessels Aorta Sinus of Valsalva: 3.84 2.0-3.5 cm Ao Asc: 3.60 2.1-3.4 cm Ao Arch: 3.00 Updated in Other Vendor System with Status of Final Geovanny Trinidad MD electronically signed on 07/04/2024 2:30:54 PM with status of Final
== END ==
LOC: HO.CARD 08:54
PROVIDERS: PCP Internal Medicine; Visit Provider Internal Medicine
DX: I45.10 Unspecified right bundle-branch block (principal); M25.471 Effusion, right ankle; M25.472 Effusion, left ankle; I10 Essential (primary) hypertension; R94.31 Abnormal electrocardiogram [ECG] [EKG]
CPT/HCPCS: 93017; 93306

== ENCOUNTER → 2024-07-04 08:56 | Outpatient (BNV) | payer OTHER, SELFPAY | PROVIDERS: PCP Internal Medicine; Visit Provider Nurse Practitioner Family | DX: I42.2 Other hypertrophic cardiomyopathy (principal); I36.1 Nonrheumatic tricuspid (valve) insufficiency; R94.31 Abnormal electrocardiogram [ECG] [EKG] | CPT/HCPCS: 93016; 93018; 93320; 93325; 93350 ==

== ENCOUNTER 2024-07-05 09:38 | Outpatient (AMB) | payer OTHER, SELFPAY ==
[2024-07-05 09:39] VITALS: BP 124/80; PULSE 84; O2SAT 98; BMI 33.1
--- NOTE | 2024-07-05 09:39 | MHC.PC.OV ---
Vital Signs 07/05/24 09:39 Height 5 ft 9 in Weight 224 lb 2 oz BMI 33.1 BP 124/80 Blood Pressure Location Rt brachial Position Sitting Pulse 84 Pulse Source Pulse Oximeter Pulse Oximetry (%) 98 Oxygen Delivery Method Room Air Intake Visit Reasons: 1 months f/up Allergies No Known Allergies Allergy (Verified 07/05/24 09:39) Medication List - Last Reconciled 07/05/24 by Cleve Catherine MD blood pressure monitor (Blood Pressure Kit) Use to check blood pressure daily cholecalciferol (vitamin D3) 50 mcg PO ONCE cyanocobalamin (vitamin B-12) 1,000 mcg PO 2XW 90 days furosemide 20 mg PO DAILY PRN 30 days testosterone cypionate 400 mg IM Q3W Tobacco use date assessed: 07/05/24 Dental Screening Dental Screen Date: 07/05/24 Did you have a dental visit in the last 12 months?: Yes Did you have a dental problem in the last 6 months where you did not have access to dental care?: No Was dental information given to patient?: Patient has dentist HPI 1 months f/up HPI Details Patient is a 58-year-old gentleman came in today for follow-up appointment on ankle swelling We did a cardiac workup Echocardiogram done on of this month showed The left ventricular systolic function is normal. The calculated ejection fraction is 55% by biplane method. - No obvious valvular pathology seen on this study. Stress test did not show any ischemia Patient is doing well with frusemide as needed He has appointment with the vascular specialist end of August He will return in 3 months for physical exam appointment with me. 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 Cognitive needs: No Hearing needs: No Vision needs: No Questionnaire Thrive Questionnaire Date Thrive assessed: 07/05/24 I am a: Patient What is your living situation today?: I have a steady place to live Within the past 12 months, did the food you bought not last and you didn't have the money to get more?: Sometimes True Within the past 12 months, did you worry whether your food would run out before you got money to buy more?: Sometimes True Do you have trouble paying for medicines?: No Do you have trouble getting transportation to medical appointments?: No Do you have trouble paying your heating and electricity bill?: No Do you have trouble taking care of your child, family member or friend?: No Do you have trouble with day-to-day activities such as bathing, preparing meals, shopping, managing finances, etc.?: No Are you currently unemployed and looking for a job?: No Are you interested in more education?: Yes Please select the resources that you would like help with: Food Currently or been in a relationship where the following occur: No concerns reported THRIVE Score: 2 AUDIT C Alcohol Use Questionnaire (AUDIT-C) 1. How often do you have a drink containing alcohol?: Never 3. How often do you have six or more drinks on one occasion?: Never Total Score: 0 Score Reviewed/Action Taken: Yes NATHALIE-7 AMB Questionnaire NATHALIE-7 Date NATHALIE - 7 assessed: 06/02/24 Source: Developed by Drs. Erasmo Morel, Marbella Rutherford, Rich Mann and colleagues, with an educational lane from [employer]. Review of Systems Const Denies chills and Denies fever(s) ENT Denies epistaxis and Denies nasal discharge Card Denies chest pain Resp Denies chest congestion, Denies cough and Denies hemoptysis GI Denies diarrhea and Denies nausea Skin/Breast Denies rash Neuro Reports no additional complaints Psych Reports no additional complaints Endo Reports no additional complaints Physical exam (Primary Care) Vital Signs: Last Vital Signs Pulse 84 07/05/24 09:39 BP 124/80 07/05/24 09:39 Pulse Ox 98 07/05/24 09:39 Oxygen Delivery Method Room Air 07/05/24 09:39 BMI result Body Mass Index 33.1 Tobacco/Smoking Status: Tobacco use Status Tobacco use date assessed 10/23/24 10/23/24 09:48 Patient Tobacco Use Status Never used Tobacco 07/05/24 09:48 e-Cigarette/Vaping Use Never Used 07/05/24 09:48 Thrive Assessment: Date of Thrive Assessment Date Thrive assessed 07/05/24 07/05/24 09:48 Currently or been in a relationship where the following occur: No concerns reported Const General: cooperative, comfortable and no acute distress Orientation/consciousness: patient oriented x3 HENMT Head: Yes normocephalic Eyes General: appearance normal, both eyes and all related structures Neck Neck: Yes supple Resp Effort & Inspection: normal respiratory effort, no cough and no stridor Cardio Rhythm: regular rhythm Heart sounds: S1 normal heart sound present and S2 normal heart sound present Skin General skin exam: turgor normal Neuro General: patient oriented x3, tone normal and moves all extremities Extrem Right lower extremity: no edema Left lower extremity: no edema Coding Level of Care Code Est Pt Level 3 (42886) Diagnoses Swelling of both ankles M25.471; M25.472 Assessment & Plan Assessment & Plan (1) Swelling of both ankles: Code(s): M25.471 - Effusion, right ankle; M25.472 - Effusion, left ankle Category: Medical Plan Patient is a 58-year-old gentleman came in today for follow-up appointment on ankle swelling We did a cardiac workup Echocardiogram done on of this month showed The left ventricular systolic function is normal. The calculated ejection fraction is 55% by biplane method. - No obvious valvular pathology seen on this study. Stress test did not show any ischemia Patient is doing well with frusemide as needed He has appointment with the vascular specialist end of August He will return in 3 months for physical exam appointment with me.
== END 2024-07-05 10:18 | disposition home or self-care (01) ==
PROVIDERS: PCP Internal Medicine; Visit Provider Internal Medicine
DX: M25.471 Effusion, right ankle (principal); M25.472 Effusion, left ankle

== ENCOUNTER → 2024-07-05 09:38 | Outpatient (BNVA) | payer OTHER, SELFPAY | PROVIDERS: PCP Internal Medicine; Visit Provider Internal Medicine | DX: M25.471 Effusion, right ankle (principal); M25.472 Effusion, left ankle | CPT/HCPCS: 99212 ==

== ENCOUNTER 2024-09-12 09:17 | Outpatient (AMB) | payer OTHER, SELFPAY ==
--- NOTE | 2024-09-12 09:25 | MHC.OFFVIS ---
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 Patient states he was given water pills from his primary care , took them for 10 days. Noticed a difference but then legs swelled back up. Bilateral leg numbness and occasional cramping. 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 Complaints include pain, swelling of lower extremities, cramping, fatigue, and heaviness of the lower extremities. It has been affecting their daily activities including walking, standing, and physical activity. It is noted in bilateral legs. He has been trialed on Lasix, which initially helps, but the swelling comes right back. He has had a cardiac echo, which revealed an ejection fraction of 55%. Patient denies any previous venous surgery or injections. Patient denies any history of DVT/ PE. Patient denies any history of phlebitis. Trial of compression includes - elevation They now present for vascular evaluation regarding their varicose veins. 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 Cognitive needs: No Hearing needs: No Vision needs: No Review of Systems Const Reports as per HPI and Denies weakness ENT Reports Normal hearing present and Denies dizziness Card Reports as per HPI, Denies chest pain, Denies chest pain at rest, Denies chest pain with activity, Denies dyspnea and Denies dyspnea on exertion Resp Reports as per HPI, Denies cough, Denies dyspnea and Denies dyspnea on exertion GI Reports as per HPI, Denies abdominal pain, Denies nausea and Denies vomiting Musc Denies numbness Skin/Breast Reports as per HPI, Denies erythema and Denies wounds Neuro Reports Normal hearing present, Denies dizziness, Denies numbness, Denies Sensory deficit (Neuro) and Denies weakness Psych Reports no additional complaints Endo Reports no additional complaints Physical Exam Const General: healthy appearing and no acute distress Orientation/consciousness: patient oriented x3 HEENT Head: Yes normal to inspection Ears: hearing grossly normal bilaterally Mouth: Normal oral and palatal mucosa present Resp Effort & Inspection: normal respiratory effort and able to speak in complete sentences Auscultation: clear to auscultation bilaterally Cardio Jugular venous distension: no JVD Rate: regular rate Rhythm: regular rhythm Heart sounds: S1 normal heart sound present and S2 normal heart sound present Bruits: no abdominal aortic bruits, no carotid bruits, no femoral bruits and no renal bruits Peripheral pulses: Peripheral pulses 2+ throughout GI Inspection: Yes normal to inspection Palpation (GI): No Abdominal aortic bruit present Skin General skin exam: no rashes or lesions noted Wounds: no wounds Hair: normal Neuro General: patient oriented x3 Cranial nerves: Yes Normal hearing present Cognition (Neuro): normal cognition Gait exam (Neuro): Normal gait present Motor exam (neuro): 5/5 motor strength present throughout Sensory Exam: No Sensory deficit (Neuro) Extrem Other: Bilateral lower extremities: Discoloration and decreased here with shiny skin noted from mid [place] circumferentially to the ankles. Trace peripheral edema noted today. Palpable DP pulses. CEAP: C - 4 E - primary A - superficial P - reflux General: Yes normal to inspection, Yes full ROM, Yes capillary refill normal and Yes normal gait Assessment & Plan Assessment & Plan (1) Varicose veins of both lower extremities with inflammation: Code(s): I83.11 - Varicose veins of right lower extremity with inflammation; I83.12 - Varicose veins of left lower extremity with inflammation Category: Medical Plan: Haile is presenting today on a referral from his PCP for ongoing bilateral lower extremity swelling with pain and discoloration. In short, the patient has evidence of venous insufficiency. I have discussed the pathophysiology with the patient. In addition I have provided informational material regarding venous disease to the patient. We have discussed conservative measures including compression, elevation, and exercise. I have also provided a handout regarding appropriate use of compression stockings and where to purchase good compression stockings as well. We did provide him with compression stockings with encouragement to wear them daily. I have taken the liberty of ordering venous insufficiency testing with the patient. They will follow up with me after testing. The patient had an opportunity to ask questions regarding the treatment plan. All questions were answered. Imaging studies, laboratory studies and physical exam results were discussed and reviewed in detail. No major barriers to understanding were identified. The patient expressed understanding and agreement with the above treatment plan. The patient is aware they should contact our office by phone for worsening of the current condition or the appearance of new symptoms. Thank you for allowing me to participate in the vascular care of this patient. If you have any questions or concerns regarding the treatment for the above condition please do not hesitate to contact me. The office telephone contact is [phone]. This note is constructed using voice recognition software. While every effort has been made to ensure accuracy, compression molding machine operator errors may have been included. Thank you for allowing me to participate in the care of your patient. Yours sincerely, LISA Luciano Orders: Orders US venous duplex LE BI 1 Week I83.11 - Varicose veins of right lower extremity with inflammation, I83.12 - Varicose veins of left lower extremity with inflammation Coding Level of Care Code New Pt Level 4 (00442) Diagnoses Varicose veins of both lower extremities with inflammation I83.11; I83.12
== END 2024-09-12 10:04 | disposition home or self-care (01) ==
PROVIDERS: PCP Internal Medicine; Visit Provider Physician Assistant Surgical
DX: I83.11 Varicose veins of right lower extremity with inflammation (principal); I83.12 Varicose veins of left lower extremity with inflammation
CPT/HCPCS: 99204

== ENCOUNTER → 2024-09-12 09:17 | Outpatient (BNVA) | payer OTHER, SELFPAY | PROVIDERS: PCP Internal Medicine; Visit Provider Physician Assistant Surgical | DX: I83.11 Varicose veins of right lower extremity with inflammation (principal); I83.12 Varicose veins of left lower extremity with inflammation | CPT/HCPCS: 99202 ==

== ENCOUNTER 2024-10-18 12:14 | Outpatient (AMB) | payer OTHER, SELFPAY ==
--- NOTE | 2024-10-18 12:15 | A.OFFPC_ITS ---
Vital Signs 10/18/24 12:16 Height 5 ft 9 in Weight 227 lb BMI 33.5 BP 128/80 Blood Pressure Location Lt brachial Position Sitting Respiration 20 Pulse 84 Pulse Source Pulse Oximeter Temp 98.4 F Temp Source Oral Pulse Oximetry (%) 97 Oxygen Delivery Method Room Air Intake Visit Reasons: CPE Allergies No Known Allergies Allergy (Verified 10/18/24 12:20) Medication List - Last Reconciled 10/18/24 by Cleve Catherine MD blood pressure monitor (Blood Pressure Kit) Use to check blood pressure daily cholecalciferol (vitamin D3) 50 mcg PO ONCE cyanocobalamin (vitamin B-12) 1,000 mcg PO 2XW 90 days furosemide 20 mg PO DAILY PRN 90 days testosterone cypionate 400 mg IM Q3W valsartan 80 mg (2 x 40 mg) PO DAILY Tobacco use date assessed: 10/18/24 Dental Screening Dental Screen Date: 10/18/24 Did you have a dental visit in the last 12 months?: Yes Did you have a dental problem in the last 6 months where you did not have access to dental care?: No Was dental information given to patient?: Patient has dentist HPI CPE HPI Details Physical exam appointment Patient is a 58-year-old gentleman came in today for his physical exam Last visit was June of last year, last set of lab was early last year he has still not done his labs in spite of reminding patient has many time I will not be able to continue his medication unless I have labs Patient had cardiac workup done 2022 Echocardiogram showed ejection fraction of 55% Stress test was negative for any ischemia Patient does have a family history of heart disease in father in late 60s His blood pressure is well-controlled He is taking valsartan 80 mg Colonoscopy was February of 2023 at [facility], next 1 will be in 2030 BMI is elevated at need to lose weight - The patient experiences headaches appr oximately three times a week, intermittent in nature and sometimes unresponsive to Tylenol. - Home blood pressure checks show satisf actory readings, despite occasional headaches. - The patient has episodic gastrointesti nal discomfort reminiscent of previous discomfort years ago treated by antibiotic as per patient He is requesting a referral to gastro again. 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 Review of Systems - Neurological: Reports intermittent hea daches, denies nausea and vision changes. - Gastrointestinal: Reports sensation of hardness in the stomach suggestive of reflux. - Respiratory: Denies shortness of breat h. - Cardiovascular: Denies chest pain. - Musculoskeletal: Denies back pain. - General: No fever no chills - Ear nose throat: No sore throat no hearing difficulty no ear pain - Endocrine: No polyuria polydipsia no heat intolerance - Genitourinary: No dysuria - Skin: No new complaints Physical Exam General: Cooperative, healthy appearing, comfortable, no acute distress Orientation: Patient oriented x3 Limitations: None Head: Normal to inspection Ears: Within normal limit visually Nose: Normal external nose present Face and sinus: Normal facial exam Eyes: Appearance normal, extraocular movement intact pupils reactive Neck: Normal visual inspection and supple Respiratory: Normal respiratory effort and able to speak in complete sentences. Clear to auscultation, no stridor Cardiovascular: S1 and S2 GI: Normal to inspection. 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 1. Little interest or pleasure in doing things: several days 2. Feeling down, depressed, or hopeless: not at all 3. Trouble falling or staying asleep, or sleeping too much: not at all 4. Feeling tired or having little energy: several days 5. Poor appetite or overeating: several days 6. Feeling bad about yourself - or that you are a failure or have let yourself or your family down: several days 7. Trouble concentrating on things, such as reading the newspaper or watching television: not at all 8. Moving or speaking so slowly that other people could have noticed. Or the opposite - being so fidgety or restless that you have been moving around a lot more than usual: not at all 9. Thoughts that you would be better off or of hurting yourself in some way: not at all Total score: 4 Depression Screening Interpretation: Negative Depression Screening Done: Yes 63598 - PHQ-9 Billing: Yes Source: Developed by Drs. Erasmo Morel, Marbella Rutherford, Rich Mann and colleagues, with an educational lane from [employer]. Thrive Questionnaire Date Thrive assessed: 10/18/24 I am a: Patient What is your living situation today?: I have a steady place to live Within the past 12 months, did the food you bought not last and you didn't have the money to get more?: Sometimes True Within the past 12 months, did you worry whether your food would run out before you got money to buy more?: Sometimes True Do you have trouble paying for medicines?: No Do you have trouble getting transportation to medical appointments?: No Do you have trouble paying your heating and electricity bill?: No Do you have trouble taking care of your child, family member or friend?: No Do you have trouble with day-to-day activities such as bathing, preparing meals, shopping, managing finances, etc.?: No Are you currently unemployed and looking for a job?: No Are you interested in more education?: No Please select the resources that you would like help with: None Currently or been in a relationship where the following occur: I choose not to answer THRIVE Score: 2 AUDIT C Alcohol Use Questionnaire (AUDIT-C) 1. How often do you have a drink containing alcohol?: Never 3. How often do you have six or more drinks on one occasion?: Never Total Score: 0 NATHALIE-7 AMB Questionnaire NATHALIE-7 Date NATHALIE - 7 assessed: 10/18/24 Feeling nervous, anxious, or on edge: 0 = Not at all Not being able to stop or control worryin = Not at all Worrying too much about different things: 0 = Not at all Trouble relaxin = Not at all Being so restless that it is hard to sit still: 0 = Not at all Becoming easily annoyed or irritable: 0 = Not at all Feeling afraid as if something awful might happen: 0 = Not at all Total NATHALIE-7 score (0-4 normal; 5-9 mild; 10-14 moderate; 15-21 severe): 0 Source: Developed by Drs. Erasmo Morel, Marbella Rutherford, Rich Mann and colleagues, with an educational lane from [employer]. NATHALIE-7 Assessment Billing NATHALIE-7 Assessment Tool: NATHALIE-7 Assessment 78024 Physical exam (Primary Care) Vital Signs: Last Vital Signs Temp 98.4 F 10/18/24 12:16 Pulse 84 10/18/24 12:16 Resp 20 10/18/24 12:16 BP 128/80 10/18/24 12:16 Pulse Ox 97 10/18/24 12:16 Oxygen Delivery Method Room Air 10/18/24 12:16 BMI result Body Mass Index 33.5 Tobacco/Smoking Status: Tobacco use Status Tobacco use date assessed 10/18/24 10/18/24 12:18 Patient Tobacco Use Status Never used Tobacco 10/18/24 12:18 e-Cigarette/Vaping Use Never Used 10/18/24 12:18 PHQ-9: PHQ-9 Score PHQ-9: Total score 4 10/18/24 12:23 Depression Screening Interpretation: Negative Thrive Assessment: Date of Thrive Assessment Date Thrive assessed 10/18/24 10/18/24 12:18 Currently or been in a relationship where the following occur: I choose not to answer Coding Level of Care Code Est Pt Level 4 (22356) Est Pt Prev Care 40-64y(14213) Diagnoses Encounter for general adult medical examination with abnormal findings Z00.01 Epigastric pain R10.13 Hypertension, essential, benign I10 Recurrent headache R51.9 Impaired fasting blood sugar R73.01 Vitamin D deficiency E55.9 Class 1 obesity due to excess calories with serious comorbidity and body mass index (BMI) of 32.0 to 32.9 in adult E66.09; Z68.32 Obesity classification: adult class 1 (BMI 30 - 34.9) Serious obesity comorbidity presence: with serious comorbidity Body mass index: BMI 32.0-32.9 B12 deficiency E53.8 Additional Codes NATHALIE-7 Assessment Billing - NATHALIE-7 Assessment Tool: NATHALIE-7 Assessment 44356 ([id number]) PHQ-9 - 72414 - PHQ-9 Billing: Yes ([id number]) Assessment & Plan Assessment & Plan (1) Encounter for general adult medical examination with abnormal findings: Code(s): Z00.01 - Encounter for general adult medical examination with abnormal findings Category: Medical (2) Epigastric pain: Code(s): R10.13 - Epigastric pain Category: Medical (3) Hypertension, essential, benign: Code(s): I10 - Essential (primary) hypertension Category: Medical (4) Recurrent headache: Code(s): R51.9 - Headache, unspecified Category: Medical (5) Impaired fasting blood sugar: Code(s): R73.01 - Impaired fasting glucose Category: Medical (6) Vitamin D deficiency: Code(s): E55.9 - Vitamin D deficiency, unspecified Category: Medical (7) Obesity due to excess calories: Code(s): E66.09 - Other obesity due to excess calories Category: Medical Qualifiers: Obesity classification: adult class 1 (BMI 30 - 34.9) Serious obesity comorbidity presence: with serious comorbidity Body mass index: BMI 32.0-32.9 Qualified Code(s): E66.09 - Other obesity due to excess calories; Z68.32 - Body mass index [BMI] 32.0-32.9, adult (8) B12 deficiency: Code(s): E53.8 - Deficiency of other specified B group vitamins Category: Medical Plan Physical exam appointment Patient is a 58-year-old gentleman came in today for his physical exam Last visit was June of last year, last set of lab was early last year he has still not done his labs in spite of reminding patient has many time I will not be able to continue his medication unless I have labs Patient had cardiac workup done 2022 Echocardiogram showed ejection fraction of 55% Stress test was negative for any ischemia Patient does have a family history of heart disease in father in late 60s His blood pressure is well-controlled He is taking valsartan 80 mg Colonoscopy was February of 2023 at [facility], next 1 will be in 2029 BMI is elevated at need to lose weight - The patient experiences headaches approximately three times a week, intermittent in nature and sometimes unresponsive to Tylenol. - Home blood pressure checks show satisfactory readings, despite occasional headaches. - The patient has episodic gastrointestinal discomfort reminiscent of previous discomfort years ago treated by antibiotic as per patient He is requesting a referral to gastro again. 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 Follow-up 3 weeks for labs and headaches, patient was instructed to start keeping diary regarding frequency of headache Physical exam 1 year Orders: Orders TSH reflex Free T4 Today E53.8 - Deficiency of other specified B group vitamins, E55.9 - Vitamin D deficiency, unspecified, E66.09 - Other obesity due to excess calories, I10 - Essential (primary) hypertension, R10.13 - Epigastric pain, R51.9 - Headache, unspecified, R73.01 - Impaired fasting glucose, Z00.01 - Encounter for general adult medical examination with abnormal findings, Z68.32 - Body mass index [BMI] 32.0-32.9, adult Hemoglobin A1c Today E53.8 - Deficiency of other specified B group vitamins, E55.9 - Vitamin D deficiency, unspecified, E66.09 - Other obesity due to excess calories, I10 - Essential (primary) hypertension, R10.13 - Epigastric pain, R51.9 - Headache, unspecified, R73.01 - Impaired fasting glucose, Z00.01 - Encounter for general adult medical examination with abnormal findings, Z68.32 - Body mass index [BMI] 32.0-32.9, adult Complete Blood Count Auto Diff Today E53.8 - Deficiency of other specified B group vitamins, E55.9 - Vitamin D deficiency, unspecified, E66.09 - Other obesity due to excess calories, I10 - Essential (primary) hypertension, R10.13 - Epigastric pain, R51.9 - Headache, unspecified, R73.01 - Impaired fasting glucose, Z00.01 - Encounter for general adult medical examination with abnormal findings, Z68.32 - Body mass index [BMI] 32.0-32.9, adult Comprehensive [place]. Panel Fast Today E53.8 - Deficiency of other specified B group vitamins, E55.9 - Vitamin D deficiency, unspecified, E66.09 - Other obesity due to excess calories, I10 - Essential (primary) hypertension, R10.13 - Epigastric pain, R51.9 - Headache, unspecified, R73.01 - Impaired fasting glucose, Z00.01 - Encounter for general adult medical examination with abnormal findings, Z68.32 - Body mass index [BMI] 32.0-32.9, adult Lipid Panel Today E53.8 - Deficiency of other specified B group vitamins, E55.9 - Vitamin D deficiency, unspecified, E66.09 - Other obesity due to excess calories, I10 - Essential (primary) hypertension, R10.13 - Epigastric pain, R51.9 - Headache, unspecified, R73.01 - Impaired fasting glucose, Z00.01 - Encounter for general adult medical examination with abnormal findings, Z68.32 - Body mass index [BMI] 32.0-32.9, adult Vitamin D 25-OH (D2 and D3) Today E53.8 - Deficiency of other specified B group vitamins, E55.9 - Vitamin D deficiency, unspecified, E66.09 - Other obesity due to excess calories, I10 - Essential (primary) hypertension, R10.13 - Epigastric pain, R51.9 - Headache, unspecified, R73.01 - Impaired fasting glucose, Z00.01 - Encounter for general adult medical examination with abnormal findings, Z68.32 - Body mass index [BMI] 32.0-32.9, adult UA CC w/rflx Micro + Cult Today E53.8 - Deficiency of other specified B group vitamins, E55.9 - Vitamin D deficiency, unspecified, E66.09 - Other obesity due to excess calories, I10 - Essential (primary) hypertension, R10.13 - Epigastric pain, R51.9 - Headache, unspecified, R73.01 - Impaired fasting glucose, Z00.01 - Encounter for general adult medical examination with abnormal findings, Z68.32 - Body mass index [BMI] 32.0-32.9, adult Referrals Gastroenterology Referral R10.13 - Epigastric pain
[2024-10-18 12:16] VITALS: BP 128/80; PULSE 84; RESP 20; TEMP 36.9; O2SAT 97; BMI 33.5
--- OUTSIDE RECORDS SUMMARY | 2024-10-18 13:46 | XMS_ITS | Clinical Summary ---
Author Organization [employer] Address [address] [place] [address] Care Team Providers Care Health Clinician Name Role Phone Unavailable Primary Care Provider Unavailabl e Allergies No known active allergies Medications D3 50 MCG (1999) tablet TAKE 1 TABLET BY MOUTH EVERY DAY ONCE 05/23/20 24 Active cyanocobalamin (Vitamin B-12) 1000 MCG tablet TAKE 1 TABLET BY MOUTH TWICE A WEEK FOR 90 DAYS 06/20/20 24 Active furosemide (Lasix) 20 MG tablet TAKE 1 TABLET ORALLY DAILY NEEDED FOR EDEMA FOR 30 DAYS 06/02/20 24 Active prednisoLONE acetate (Pred-Forte) 1 % ophthalmic suspension PLEASE SEE ATTACHED FOR DETAILED DIRECTIONS 03/24/20 24 Active testosterone cypionate (Depo-Testoste darlene) 200 MG/ML injection INJECT 2 CC INTRAMUSCULARLY EVERY 4 WEEKS 08/17/20 24 Active valsartan (Diovan) 40 MG tablet TAKE 2 TABLETS ORALLY DAILY FOR 90 DAYS 04/10/20 24 Active Gemtesa 75 MG tablet Take 1 tablet by mouth at bedtime. 06/16/20 24 Active Active Problems No known active problems Encounters Date Type Department Care Team Description 09/05/2024 10:00 AM EST Office Visit [facility] [address] [place] [address] Nedra Vergara Dental calculus (Primary Dx) from Last 3 Months Social History Tobacco Use Types Packs/Day Years Used Date Smoking Tobacco: Never Passive Smoke Exposure: Never Smokeless Tobacco: Never Tobacco Cessation:Counseling Given: Not Answered Alcohol Use Standard Drinks/Week Comments Defer 0 (1 standard drink = 0.6 oz pur e alcohol) Sex and Gender Information Value Date Recorded Sex Assigned at Male 08/22/2024 3:30 PM EST Legal Sex Male 3:51 PM EDT Gender Identity Male 08/22/2024 3:30 PM EST Sexual Orientation Straight 08/22/2024 3: 30 PM EST Last Filed Vital Signs Vital Sign Reading Time Taken Comments Blood Pressure 142/88 09/05/2024 9:53 AM EST Pulse - - Temperature - - Respiratory Rate - - Oxygen Saturation - - Inhaled Oxygen Concentration - - Weight - - Height - - Body Mass Index - - Plan of Treatment Health Maintenance Due Date Last Done Comments CT Colonography 1965 Colonoscopy 1965 Colorectal Cancer Screening 1965 Depression Screening 1965 FIT DNA/Cologuard 1965 FIT 1965 FOBT 1965 HIV Screening 1965 Lipid Panel 1965 SDOH Screening 1965 Sigmoidoscopy 1965 Alcohol/Substance Use Screening 1977 Hepatitis C Screening 11/21/1983 Hepatitis B Vaccines (1 of 3 - 19+ 3-dose series) 1984 Pneumococcal Vaccine: 50+ Years (1 of 1 - PCV) 11/21/2015 Zoster Vaccines (2 of 2) 11/06/2022 09/11/2022 COVID-19 Vaccine (3 - season) 2024 10/30/2021, 10/09/2021 Influenza Vaccine (#1) 2024 , 07/07/2018, 06/10/2017, Additional history exists Dental Oral Exam 03/07/2025 09/05/2024 Dental Prophylaxis 03/07/2025 09/05/2024 DTaP/Tdap/Td Vaccines (3 - Td or Tdap) 03/27/2025 03/27/2015, 10/26/2008 Tobacco Screening 09/05/2025 09/05/2024 Dental X-Ray: Bitewings 09/06/2025 09/05/2024 Dental X-Ray: Full Mouth 09/06/2027 09/05/2024 RSV Patients and Patients Aged 60 years or older (1 - 1-dose 75+ series) 2040 HIB Vaccines Aged Out No longer eligi ble based on patient's age to complete this topic HPV Vaccines Aged Out No longer eligi ble based on patient's age to complete this topic Hepatitis A Vaccines Aged Out No long er eligible based on patient's age to complete this topic IPV Vaccines Aged Out No longer eligi ble based on patient's age to complete this topic Meningococcal Vaccine Aged Out No vazquez sheba eligible based on patient's age to complete this topic Pneumococcal Vaccine: Pediatrics (0 to 5 Years) and At-Risk Patients (6 to 49) Years) Aged Out No longer eligible based on patient's age to complete this topic RSV under 20 months Aged Out No longe r eligible based on patient's age to complete this topic Rotavirus Vaccines Aged Out No longer eligible based on patient's age to complete this topic Procedures Procedure Name Priority Date/Time Associated Diagnosis Comments COMPREHENSIVE ORAL EVALUATION - NEW OR ESTABLISHED PATIENT Routine 09/05/2024 10:00 AM EST DIAGNOSTIC - DIAGNOSTIC IMAGING - INTRAORAL - COMPREHENSIVE SERIES OF RADIOGRAPHIC IMAGES Routine 09/05/2024 10:00 AM EST ORAL HYGIENE INSTRUCTIONS Routine 2023 10:00 AM EST ADJUNCTIVE GENERAL SERVICES - PROFESSIONAL VISITS - CASE PRESENTATION, SUBSEQUENT TO DETAILED AND EXTENSIVE TREATMENT PLANNING Routine 09/05/2024 10:00 AM EST PROPHYLAXIS - ADULT Routine 09/05/2024 1 0:00 AM EST 16 O AMALGAM FILLING Routine 09/05/2024 12:00 AM EST 15 FIXED PARTIAL DENTURE - ABUTMENT CROWN Routine 09/05/2024 12:00 AM EST 14 FIXED PARTIAL DENTURE - ABUTMENT CROWN Routine 09/05/2024 12:00 AM EST 13 FIXED PARTIAL DENTURE - ABUTMENT CROWN Routine 09/05/2024 12:00 AM EST 11 FIXED PARTIAL DENTURE - ABUTMENT CROWN Routine 09/05/2024 12:00 AM EST 10 FIXED PARTIAL DENTURE - ABUTMENT CROWN Routine 09/05/2024 12:00 AM EST 7 FIXED PARTIAL DENTURE - ABUTMENT CROWN Routine 09/05/2024 12:00 AM EST 9 FIXED PARTIAL DENTURE - ABUTMENT CROWN Routine 09/05/2024 12:00 AM EST 6 FIXED PARTIAL DENTURE - ABUTMENT CROWN Routine 09/05/2024 12:00 AM EST 8 FIXED PARTIAL DENTURE - ABUTMENT CROWN Routine 09/05/2024 12:00 AM EST 5 O AMALGAM FILLING Routine 09/05/2024 1 2:00 AM EST 3 O AMALGAM FILLING Routine 09/05/2024 1 2:00 AM EST 2 O AMALGAM FILLING Routine 09/05/2024 1 2:00 AM EST 1 O AMALGAM FILLING Routine 09/05/2024 1 2:00 AM EST 18 O AMALGAM FILLING Routine 09/05/2024 12:00 AM EST 20 CROWN - PORCELAIN/CERAMIC Routine 09/05/2024 12:00 AM EST 20 PREFABRICATED POST AND CORE IN ADDITION TO CROWN Routine 09/05/2024 12:00 AM EST 20 ROOT CANAL Routine 09/05/2024 12:00 AM EST from Last 3 Months Insurance
== END 2024-10-18 12:46 | disposition home or self-care (01) ==
PROVIDERS: PCP Internal Medicine; Visit Provider Internal Medicine
DX: Z00.00 Encounter for general adult medical examination without abnormal findings (principal); R10.13 Epigastric pain; Z68.32 Body mass index [BMI] 32.0-32.9, adult; E66.09 Other obesity due to excess calories; I10 Essential (primary) hypertension; R51.9 Headache, unspecified; E55.9 Vitamin D deficiency, unspecified; R73.01 Impaired fasting glucose; E53.8 Deficiency of other specified B group vitamins

== ENCOUNTER → 2024-10-18 12:14 | Outpatient (BNVA) | payer OTHER, SELFPAY | PROVIDERS: PCP Internal Medicine; Visit Provider Internal Medicine | DX: Z00.01 Encounter for general adult medical examination with abnormal findings (principal); R10.13 Epigastric pain; I10 Essential (primary) hypertension; R51.9 Headache, unspecified; R73.01 Impaired fasting glucose; E55.9 Vitamin D deficiency, unspecified; E66.09 Other obesity due to excess calories; Z68.32 Body mass index [BMI] 32.0-32.9, adult; E53.8 Deficiency of other specified B group vitamins; Z71.3 Dietary counseling and surveillance | CPT/HCPCS: 96127; 99212; 99396 ==

== ENCOUNTER 2024-10-20 09:36 | Outpatient (REF) | payer OTHER, SELFPAY ==
--- OUTSIDE RECORDS SUMMARY | 2024-10-20 10:16 | XMS_ITS | Clinical Summary ---
Author Organization [employer] Address [address] [place] [address] Care Team Providers Care Cable Repairer Name Role Phone Unavailable Primary Care Provider [...] Description 09/05/2024 10:00 AM EST Office Visit [facility] [address] [place] [address] Nedra Vergara Dental calculus (Primary Dx) from [...]
[2024-10-20 13:36] LABS: MANUAL DIFF FLAG NO
[2024-10-20 13:48] LABS: Basophils Percent Auto 0.5 % (0-2); Eosinophils Absolute Auto 0.1 X10*3/uL (0.0-0.4); Hematocrit 43.7 % (42.0-52.0); Hemoglobin 14.9 g/dl (14.0-18.0); Imm Gran Abs Auto 0.02 X10*3/uL (0.00-0.03); Imm Gran Pct Auto 0.4 % (0.0-0.4); Lymphocytes Absolute Auto 1.8 X10*3/uL (1.2-4.9); Lymphocytes Percent Auto 32.4 % (20-40); Mean Corpuscular HGB Conc 34.1 g/dl (31.0-36.0); Mean Corpuscular Hemoglobin 30.8 pg (27.0-33.0); Mean Corpuscular Volume 90.5 fL (80.0-98.0); Mean Platelet Volume 9.7 fL (9.4-12.4); Monocytes Absolute Auto 0.5 X10*3/uL (0.1-1.2); Monocytes Percent Auto 8.4 % (2-11); Neutrophils Absolute Auto 3.1 x10*3/uL (2.0-8.3); Neutrophils Percent Auto 56.3 % (45-73); Platelet Count 224 X10*3/uL (160-400); Red Blood Count 4.83 X10*6/uL (4.60-5.80); Red Cell Distribution Width 12.9 % (11.0-16.0); White Blood Count 5.6 X10*3/uL (4.8-10.8)
[2024-10-20 14:07] LABS: Appearance Urine Clear; Color Urine Yellow; Glucose Urine UA Negative (Negative); Leukocyte Esterase Urine Negative (Negative); Nitrite Urine Negative (Negative); PH 5.5 (5.0-9.0); Urine Blood Negative (Negative); Urine Ketones Negative (Negative); Urine Protein Negative (Neg-Trace)
[2024-10-20 14:16] LABS: Estimated Average Glucose 123 mg/dL; Hemoglobin A1C 159.1146 umol/L; Hemoglobin A1c % 5.9 % (<6.0); Total Hemoglobin (HGBA1C) 3861.6168 umol/L
[2024-10-20 14:20] LABS: Alanine Aminotransferase 102 U/L (0-40); Albumin Level 4.6 g/dL (3.5-5.0); Alkaline Phosphatase 58 U/L (39-117); Anion Gap 14 (12-20); Aspartate Amino Transferase 57 U/L (5-37); Bilirubin Total 0.6 mg/dL (0.0-1.0); Blood Urea Nitrogen 15 mg/dL (9-16); Calcium 9.4 mg/dL (8.4-10.2); Carbon Dioxide 24 mmol/L (22-29); Chloride 105 mmol/L (96-108); Cholesterol 175 mg/dL (<200); Estimated Glomerular Filt Rate > 60; Glucose Fasting 117 mg/dL (60-99); HDL Cholesterol 35 mg/dL (>40); LDL Cholesterol Calculated 106 mg/dL (<100); Sodium 139 mmol/L (135-145); TSH reflex Free T4 1.16 uIU/mL (0.32-4.0); Total Protein 8.1 g/dL (6.5-8.0); Triglycerides 171 mg/dL (<150)
[2024-10-25 17:04] LABS: Vitamin D 25-OH, D2 <4 ng/mL; Vitamin D 25-OH, D3 31 ng/mL; Vitamin D 25-OH, Total 31 ng/mL (30-100)
== END 2024-10-20 09:37 | disposition home or self-care (01) ==
LOC: HO.HMGCLDS 09:36
PROVIDERS: PCP Internal Medicine; Visit Provider Internal Medicine
DX: Z00.01 Encounter for general adult medical examination with abnormal findings (principal); R10.13 Epigastric pain; E53.8 Deficiency of other specified B group vitamins; I10 Essential (primary) hypertension; E66.09 Other obesity due to excess calories; Z68.32 Body mass index [BMI] 32.0-32.9, adult; E55.9 Vitamin D deficiency, unspecified; R73.01 Impaired fasting glucose; R51.9 Headache, unspecified
CPT/HCPCS: 36415; 80053; 80061; 81003; 82306; 83036; 84443; 85025

== ENCOUNTER → 2024-11-02 15:16 | Outpatient (BNVA) | payer SELFPAY | PROVIDERS: PCP Internal Medicine; Visit Provider Physician Assistant Medical | DX: Z02.79 Encounter for issue of other medical certificate (principal) ==

== ENCOUNTER 2024-11-07 09:29 | Outpatient (REF) | payer OTHER, SELFPAY ==
[2024-11-07 15:03] LABS: Influenza A PCR POSITIVE (Negative); Influenza B PCR NEGATIVE (Negative); Resp Syncy Virus RNA Qual PCR NEGATIVE (Negative); SARS COV2 PCR INHOUSE NEGATIVE (Negative)
--- OUTSIDE RECORDS SUMMARY | 2024-11-07 16:57 | XMS_ITS | Clinical Summary ---
Author Organization [employer] Address [address] [facility] [address] [place] [address] Care Team Providers Care Residential Designer Name Role Phone Unavailable Primary Care Provider [...] Description 09/05/2024 10:00 AM EST Office Visit [facility] [address] [place] [address] Nedra Vergara Dental calculus (Primary Dx) from [...] AM EST from Last [address] [place] [address] [address] DENTAL [facility]
== END 2024-11-07 09:30 | disposition home or self-care (01) ==
LOC: HO.LNP 09:29
PROVIDERS: Physician Assistant; Visit Provider Internal Medicine
DX: J06.9 Acute upper respiratory infection, unspecified (principal)
CPT/HCPCS: 0241U; 99212

== ENCOUNTER 2024-11-07 09:29 | Outpatient (AMB) | payer OTHER, SELFPAY ==
[2024-11-07 10:17] VITALS: BP 118/74; PULSE 76; RESP 18; TEMP 37; O2SAT 96; BMI 33.4
--- NOTE | 2024-11-07 10:17 | MHC.OFFWIV ---
Intake Vital Signs 11/07/24 10:17 Height 5 ft 9 in Weight 226 lb BMI 33.4 BP 118/74 Blood Pressure Location Rt brachial Position Sitting Respiration 18 Pulse 76 Pulse Source Pulse Oximeter Temp 98.6 F Temp Source Oral Pulse Oximetry (%) 96 Oxygen Delivery Method Room Air Intake Visit Reasons: EP-cough, chest congestion, headaches Intake Note: Pt is here today for a walk in visit. Pt c/o cough a lot of mucus, chest congestion headache for 2 weeks now. Patient Tobacco Use Status: Never used Tobacco Allergies No Known Allergies Allergy (Verified 11/07/24 10:19) HPI HPI Comments History of Present Illness Details This is a 58-year-old male with a past medical history of hypertension presenting for evaluation of a cough and headaches he has had for the past 2 weeks. Patient denies having any fevers, chills, sore throat or ear pain. Patient states that his has had similar symptoms. Patient has used fdfk-cib-lftlbop cough syrup and fluticasone nasal spray without relief of his symptoms. 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 Cognitive needs: No Hearing needs: No Vision needs: No Review of Systems Const All systems reviewed & are unremarkable except as noted in HPI and below Reports no additional complaints, Denies chills, Denies fatigue and Denies fever(s) Eyes Reports no additional complaints ENT Reports no additional complaints Card Denies chest pain, Denies dyspnea and Denies dyspnea on exertion Resp Reports cough, Denies dyspnea and Denies dyspnea on exertion GI Reports no additional complaints Reports no additional complaints Skin/Breast Reports system reviewed and no additional complaints, except as documented Neuro Reports no additional complaints Psych Reports no additional complaints Endo Reports no additional complaints and Denies fatigue Physical Exam Vital Signs: Last Vital Signs Temp 98.6 F 11/07/24 10:17 Pulse 76 11/07/24 10:17 Resp 18 11/07/24 10:17 BP 118/74 11/07/24 10:17 Pulse Ox 96 11/07/24 10:17 Oxygen Delivery Method Room Air 11/07/24 10:17 BMI result Body Mass Index 33.4 Const General: cooperative, comfortable, no acute distress, alert, awake and Physically active Nutritional Appearance: well nourished Orientation/consciousness: patient oriented x3 Limitations: no limitations HEENT Head: Yes normal to inspection Ears: hearing grossly normal bilaterally, external ears normal, TM's normal bilaterally and EAC's normal General nose exam: Normal external nose present Face and sinus: Yes normal facial exam Mouth: Normal oral and palatal mucosa present and oropharynx normal Throat: Yes posterior oropharynx normal and No postnasal drainage Eyes General: appearance normal, both eyes and all related structures Neck Lymphatic: no lymphadenopathy noted Resp Effort & Inspection: normal respiratory effort and not tachypneic Auscultation: clear to auscultation bilaterally Cardio Rate: regular rate Rhythm: regular rhythm Skin General skin exam: no rashes or lesions noted Neuro General: patient oriented x3 Psych Appearance: grossly normal Mental Status: mental status grossly normal Insight: Good insight present (Psych) Judgement: Good judgement present (Psych) Assessment & Plan Assessment & Plan (1) Acute upper respiratory infection: Comment: SARS panel is ordered and results are pending. Code(s): J06.9 - Acute upper respiratory infection, unspecified Plan: Tessalon Perles and Mucinex as needed for cough. Increase clear fluids daily. SARS panel pending. Orders: Orders SARS-CoV2/FLU/RSV Today J06.9 - Acute upper respiratory infection, unspecified Medications: New benzonatate 100 mg PO TID 20 caps 0RF Coding Level of Care Code Est Pt Level 3 (23901) Diagnoses Acute upper respiratory infection J06.9 Time Spent (min) 20
--- OUTSIDE RECORDS SUMMARY | 2024-11-07 10:34 | XMS_ITS | Clinical Summary ---
Author Organization [employer] Address [address] [facility] [address] [place] [address] Care Team Providers Care Network Firewall Engineer Name Role Phone Unavailable Primary Care Provider [...] Description 09/05/2024 10:00 AM EST Office Visit [facility] [address] [place] [address] Nedra Vergara Dental calculus (Primary Dx) from [...] ESTABLISHED PATIENT Routine 09/05/2024 10:00 AM EST INTRAORAL - COMPLETE SERIES OF RADIOGRAPHIC IMAGES Routine 09/05/2024 10:00 AM EST ORAL HYGIENE INSTRUCTIONS Routine 2023 10:00 AM EST CASE PRESENTATION, DETAILED AND EXTENSIVE TREATMENT PLANNING Routine 09/05/2024 [...] AM EST from Last [address] [place] [address] [place] [address] DENTAL [facility]
== END 2024-11-07 10:58 | disposition home or self-care (01) ==
PROVIDERS: PCP Internal Medicine; Visit Provider Physician Assistant
DX: J06.9 Acute upper respiratory infection, unspecified (principal)

== ENCOUNTER 2024-12-06 10:19 | Outpatient (AMB) | payer OTHER, SELFPAY ==
[2024-12-06 10:28] VITALS: BP 130/88; PULSE 70; O2SAT 96; BMI 33.4
--- NOTE | 2024-12-06 10:28 | MHC.OFFVIS ---
Vital Signs 12/06/24 10:28 Height 5 ft 9 in Weight 226 lb 3.108 oz BMI 33.4 BP 130/88 Blood Pressure Location Rt brachial Position Sitting Pulse 70 Pulse Source Pulse Oximeter Pulse Oximetry (%) 96 Oxygen Delivery Method Room Air Intake Visit Reasons: Epigastric pain. [facility] 2022. Intake Note: ESTABLISHED PATIENT for re-est. [facility] 2022 for colo screening. Has not followed up since then. Chief Complaint; C/O excessive gas, abd pressure but not pain, generalized and moving throughout the abd per pt. Pt also reports mixed fecal abn (constipation + diarrhea). Pt has been actively trying to identify triggers w/o success to this point. Pt also reports possible hemorrhoids. Disc Jockey Required: No Accompanied by: Self / Same As Patient Allergies No Known Allergies Allergy (Verified 12/06/24 10:28) HPI HPI Epigastric pain. [facility] 2022.: Details: LAST VISIT: Colon cancer screening Occasional postprandial abdominal bloating. One episode of chest pressure few months back. Patient was found to have high blood pressure started on medication. Patient denies any cardiac or respiratory symptoms. Denies any issues with anesthesia in the past.? Denies any history of sleep apnea.? No history infectious diseases in the past or present.? Not on any anticoagulation therapy.? No family or personal history of colon cancer or polyps.? Patient denies melena, hematochezia, unintentional weight loss or ribbon like stools.? Discussed at length the pre-procedure,? prep, diet & medications as well as what to expect prior, during and after the procedure.?? Stressed the importance of good bowel prep. ?Recommended the use of Vaseline or Calmoseptine OTC & baby wipes with bowel movements to promote comfort.? ?Patient verbalizes understanding and agrees to plan of care.? He was given the opportunity to ask questions and all questions answered.? We will see him after the procedure.? Plan Medications New bisacodyl (Dulcolax (bisacodyl)) take 2 tabs at noon the day before your colonoscopy 10 mg (2 x 5 mg) PO ONCE 1 day 2 tabs 0RF Z12.11 polyethylene glycol 3350 (Miralax) As directed by gastroenterology department at [facility] 238 grams PO ONCE 238 grams 0RF Z12.11 COLONOSCOPY: Findings: Terminal Ileum-normal Cecum:normal Ascending Colon: normal Transverse Colon -normal Descending Colon: 5-8 mm sessile polyp removed with cold snare Sigmoid Colon: normal Rectum: Retroflexion with small internal hemorrhoids, grade I Anorectum - normal Colon preparation: Merrill Bowel Preparation Scale Right colon; 2 Transverse colon: 2 Left colon; 2 (0 = Unprepared colon segment with mucosa not seen due to solid stool that cannot be cleared. 1 = Portion of mucosa of the colon segment seen, but other areas of the colon segment not well seen due to staining, residual stool and/or opaque liquid. 2 = Minor amount of residual staining, small fragments of stool and/or opaque liquid, but mucosa of colon segment seen well. 3 = Entire mucosa of colon segment seen well with no residual staining, small fragments of stool or opaque liquid) Impression and Post Procedure Diagnosis: polyp internal hemorrhoids Plan: High fiber diet leaflet Avoid straining at stool, epsom salts and sitz bath, anusol supps or cream Repeat Colonoscopy in 5-7 years due to adenomatous appearing polyp or earlier if clinically indicated PATHOLOGY: Diagnosis Colon, descending, polyp: Tubular adenoma; negative for high-grade dysplasia and carcinoma. TODAY'S VISIT: Patient is here today for consultation. Patient was previously seen for colonoscopy in this office. Had 1 tubular adenoma and was told to colonoscopy in 7 years. In the past few months patient started with new symptoms. Bloating, feeling very gassy. Denies any abdominal pain or discomfort. Episode of epigastric pain a month ago, however reports that since then no symptoms. Patient does not have loose stools frequent stools sometimes up to 3 to 4 times a day, denies any diarrhea or mucus in his stools. Denies hematochezia, however 1 episode of blood in the stools few months ago. Patient changed his diet tries to lose weight. Diagnosed with hepatic steatosis on ultrasound in June of 2024. Recently his AST elevated, ALT has been elevated since 2022. Patient denies any nausea or vomiting. Denies any dyspepsia, dysphagia or odynophagia. Denies any melena, unintentional weight loss or ribbon like stools. 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 Cognitive needs: No Hearing needs: No Vision needs: No Review of Systems Const Denies weight gain and Denies weight loss ENT Reports no additional complaints, Denies dysphagia and Denies odynophagia Card Reports no additional complaints Resp Reports no additional complaints GI Denies abdominal pain, Denies belching, Denies melena, Reports bloating, Denies change in bowel habits, Denies dysphagia, Denies excessive flatus, Denies dyspepsia, Denies heartburn, Denies diarrhea, Denies loose stools, Denies nausea, Denies odynophagia and Denies vomiting Reports no additional complaints Musc Reports no additional complaints Neuro Reports no additional complaints Psych Reports no additional complaints Endo Reports no additional complaints Physical Exam Vital Signs: Last Vital Signs Pulse 70 12/06/24 10:28 BP 130/88 12/06/24 10:28 Pulse Ox 96 12/06/24 10:28 Oxygen Delivery Method Room Air 12/06/24 10:28 BMI result Body Mass Index 33.4 Const General: healthy appearing, no acute distress and well developed Nutritional Appearance: well nourished Orientation/consciousness: patient oriented x3 Resp Effort & Inspection: normal respiratory effort, able to speak in complete sentences, no tracheal deviation and symmetric chest movement Auscultation: clear to auscultation bilaterally Cardio Rate: regular rate GI Inspection: Yes normal to inspection, No distended and Yes obesity Palpation (GI): Soft to palpation, not firm, nontender and No hepatosplenomegaly present Auscultation: Hyperactive bowel sounds present General: Yes no CVA tenderness Back/Spine/Pelvis Back: no CVA tenderness Skin General skin exam: elasticity normal, turgor normal and dry skin Neuro General: patient oriented x3 Psych Appearance: grossly normal Mental Status: mental status grossly normal Results Reviewed Results Reviewed: ABDOMINAL ULTRASOUND 07/02/2024 FINDINGS: PANCREAS: The visualized pancreas appears unremarkable but the pancreatic tail is obscured by bowel gas. ABDOMINAL AORTA: The proximal, mid, and distal segments are normal in caliber. INFERIOR VENA CAVA: Visualized portions are normal. LIVER: The liver is normal in size. The liver contour is normal. There is diffuse increased liver parenchymal echogenicity, consistent with hepatic steatosis. No focal hepatic lesion. There is no intrahepatic biliary duct dilatation seen. GALLBLADDER: The gallbladder is physiologically distended without evidence of stones, sludge, polyps, wall thickening or pericholecystic fluid. COMMON BILE DUCT: Normal in caliber measuring 0.3 cm in diameter. RIGHT KIDNEY: No hydronephrosis. No renal calculi or focal parenchymal lesions. The kidney measures 10.8 cm in maximum dimension. LEFT KIDNEY: No hydronephrosis or renal calculi. The kidney measures 11.4 cm in maximum dimension. A benign mid renal 1.4 cm Bosniak class I renal cyst is noted which requires no additional imaging or follow up. No solid renal masses are seen. SPLEEN: Normal. The spleen measures 10.1 cm in maximum dimension. FREE FLUID: None. US/US abdomen complete IMPRESSION: Hepatic steatosis. Laboratory Tests 07/13/23 01/14/24 10/20/24 07:10 12:11 09:40 AST 28 57 H ALT 41 H 58 H 102 H Alkaline Phosphatase 58 Assessment & Plan Assessment & Plan (1) Bloating: Code(s): R14.0 - Abdominal distension (gaseous) Category: Medical (2) Upper abdominal pain: Code(s): R10.10 - Upper abdominal pain, unspecified Category: Medical (3) Frequent bowel movements: Code(s): R19.4 - Change in bowel habit Category: Medical (4) Bleeding hemorrhoids: Code(s): K64.9 - Unspecified hemorrhoids Category: Medical (5) Constipation: Code(s): K59.00 - Constipation, unspecified Qualifiers: Constipation type: slow transit constipation Qualified Code(s): K59.01 - Slow transit constipation Plan Patient reports 2-3 bowel movements a day. Feeling like he does not empty his bowels. He will start taking fiber supplements and he can take senna at bedtime to help her move his bowels better. Increase fluid intake and activity to promote better bowel motility. Patient reports significant bloating. Hyperactive bowels. Patient admits to be very gassy, both belching and passing gas. Will check lipase, vitamin level, transglutaminase, liver enzymes. Discussed with patient avoiding dietary triggers and late night snacking. Discussed with him low FODMAP diet. List of food recommended as well as list of food to avoid given to patient. We also discussed low-salt, low sodium and low carb diet. Patient was encouraged to eat more protein. Follow-up in 2-3 months, sooner on as needed basis. Patient is agreeable to this plan and verbalizes understanding of instructions. He was given the opportunity to ask questions and all questions answered. Thank you for allowing me to participate in his care Orders: Orders Vitamin K1 Today R10.10 - Upper abdominal pain, unspecified, R14.0 - Abdominal distension (gaseous) Lipase Today R10.9 - Unspecified abdominal pain Liver Panel Today R74.01 - Elevation of levels of liver transaminase levels Transglutaminase IgA Today R10.9 - Unspecified abdominal pain Vitamin B12 and Folate Today R19.7 - Diarrhea, unspecified Medications: New sennosides (Natural Senna Laxative) 17.2 mg (2 x 8.6 mg) PO BEDTIME 60 tabs 3RF constipation K59.00 - Constipation, unspecified simethicone 125 mg PO BID-QID PRN 120 caps 3RF abdominal distention Coding Level of Care Code Est Pt Level 4 (76264) Diagnoses Bloating R14.0 Upper abdominal pain R10.10 Frequent bowel movements R19.4 Bleeding hemorrhoids K64.9 Slow transit constipation K59.01 Constipation type: slow transit constipation Time Spent (min) 40 Comment 30 minutes spent with patient and additional 10 minutes spent reviewing his records
--- OUTSIDE RECORDS SUMMARY | 2024-12-06 12:03 | XMS_ITS | Encounter Summary ---
Author Organization [facility] Address [address] [place] [address] Care Team Providers Care General Farm Manager Name Role Phone Cleve Catherine MD Primary Care Provider [phone] Encounter Details Date Type Department Care Team (Late st Contact Info) Description 2024 Lab Requisition [facility] - Main Lab [address] [place] [address] Brittney Leahy PA [address] [place] [address] Testicular hypofunction Social History Tobacco Use Types Packs/Day Years Used Date Smoking Tobacco: Never Assessed Sex and Gender Information Value Date Recorded Sex Assigned at Not on file Legal Sex Male 6:46 PM EST Gender Identity Not on file Sexual Orientation Not on file documented as of this encounter Plan of Treatment Not on file documented as of this encounter Procedures Procedure Name Priority Date/Time Associated Diagnosis Comments CBC WITH AUTO DIFFERENTIAL Routine 2024 10:42 AM EDT Testicular hypofunction CBC AND DIFFERENTIAL Routine 2024 10:42 AM EDT Testicular hypofunction documented in this encounter Results * CBC auto differential (2024 10:42 AM EDT) WBC 5.8 4.8 - 10.8 K/[facility] LAB HEMETOLOGY METHOD 2024 1:09 PM EDT [facility] RBC 4.70 4.50 - 5.50 M/[facility] LAB HEMETOLOGY METHOD 2024 1:09 PM EDT [facility] Hemoglobin 14.8 13.5 - 17.5 g/dL [facility] Hematocrit 44.0 42.0 - 54.0 % LAB HEMETOLOGY METHOD 2024 1:09 PM [facility] MCV 92.8 79.0 - 98.0 FL LAB HEMETOLOGY METHOD 2024 1:09 PM [facility] MCH 31.2 27.0 - 32.0 pcg LAB HEMETOLOGY METHOD 2024 1:09 PM [facility] MCHC 33.6 32.0 - 37.0 g/dL LAB HEMETOLOGY METHOD 2024 1:09 PM [facility] RDW 12.7 11.0 - 15.0 % LAB HEMETOLOGY METHOD 2024 1:09 PM [facility] Platelets 253 130 - 400 K/mcL LAB HEMETOLOGY METHOD 2024 1:09 PM [facility] MPV 9.9 7.0 - 11.0 FL LAB HEMETOLOGY METHOD 2024 1:09 PM [facility] NRBC 0.0 <1.0 % LAB HEMETOLOGY METHOD 2024 1:09 PM [facility] NRBC Absolute 0.00 <0.10 K/mcL LAB HEMETOLOGY METHOD 2024 1:09 PM [facility] Neutrophils Relative 56.1 % LAB HEMETOLOGY METHOD 2024 1:09 PM [facility] Lymphocytes Relative 31.7 % LAB HEMETOLOGY METHOD 2024 1:09 PM [facility] Monocytes Relative 9.1 % LAB HEMETOLOGY METHOD 2024 1:09 PM EDT [facility] Eosinophils Relative 1.9 % LAB HEMETOLOGY METHOD 2024 1:09 PM EDT [facility] Basophils Relative 0.9 % [facility] Immature Granulocytes Relative 0.3 % LAB HEMETOLOGY METHOD 2024 1:09 PM EDT [facility] Neutrophils Absolute 3.26 1.50 - 7.00 K/mcL LAB HEMETOLOGY METHOD 2024 1:09 PM EDT [facility] Lymphocytes Absolute 1.84 1.00 - 5.00 K/mcL [facility] Monocytes Absolute 0.53 0.20 - 1.00 K/mcL LAB HEMETOLOGY METHOD 2024 1:09 PM EDT [facility] Eosinophils Absolute 0.11 0.00 - 0.50 K/mcL LAB HEMETOLOGY METHOD 2024 1:09 PM T [facility] Basophils Absolute 0.05 0.00 - 0.20 K/mcL LAB HEMETOLOGY METHOD 2024 1:09 PM [facility] Immature Granulocytes Absolute 0.02 0.00 - 0.03 K/mcL LAB HEMETOLOGY METHOD 2024 1:09 PM T [facility] Blood Venous blood specimen / Unknown 2024 10:42 AM EDT 2024 12:14 PM EDT us Brittney GONZALEZ LAB BLOOD ORDERABLES Final Res ult [facility] [address] [place] [address], documented in this encounter Visit Diagnoses Diagnosis Testicular hypofunction Other testicular hypofunction documented in this encounter Care Teams General Farm Manager Relationship Specialty Start Date End Date Cleve Catherine MD [address] [place] [address] PCP - General Internal Medicine 10/03/21 documented as of this encounter
--- OUTSIDE RECORDS SUMMARY | 2024-12-06 12:03 | XMS_ITS | Clinical Summary ---
Author Organization [address] [facility] Address [address] [place] [address] Phone Care Team Providers Care Back Tender Pulp Drier Name Role Phone Cleve Catherine MD Primary Care Provider [phone] Encounters Date Type Department Care Team Description 2024 Lab Requisition [facility] - Main Lab [address] [place] [address] Brittney Leahy PA Testicular hypofunction from Last 3 Months Social History Tobacco Use Types Packs/Day Years Used Date Smoking Tobacco: Never Assessed Sex and Gender Information Value Date Recorded Sex Assigned at Not on file Legal Sex Male 6:46 PM EST Gender Identity Not on file Sexual Orientation Not on file Plan of Treatment Health Maintenance Due Date Last Done Comments Hepatitis B Vaccines (1 of 3 - 19+ 3-dose series) 1984 Pneumococcal Vaccine: 50+ Years (1 of 1 - PCV) 11/21/2015 Zoster Vaccines (1 of 2) 11/21/2015 DTaP,Tdap,and Td Vaccines (2 - Td or Tdap) 10/26/2018 10/26/2008 Cholesterol Screening (Lipid Panel) 08/22/2022 Colorectal Cancer Screening: Colonoscopy 08/22/2022 Depression Screening 08/22/2022 HIV Screening 08/22/2022 Hepatitis C Screening 08/22/2022 Social Influencers of Health Screening 08/22/2022 COVID-19 Vaccine (1 - 2023-2 5 season) 2024 Influenza Vaccine (#1) 2024 8, 06/19/2016 RSV Immunization Patients 60 + Years Old (1 - 1-dose 75+ series) 2040 HIB [...] on patient's age to complete this topic MMR Vaccines Aged Out No longer eligi ble based on patient's age to complete this topic Meningococcal ACWY Vaccine Aged Out N o longer eligible based on patient's age to complete this topic Meningococcal B Vacine Aged Out No lo nger eligible based on patient's age to complete this topic Pneumococcal Vaccine: Pediatrics (0 to 5 Years) and At-Risk Patients (6 to 64 Years) Aged Out No longer eligible b ased on patient's age to complete this topic RSV Immunization Patients Under 20 months Aged Out No longer eligible b ased on patient's age to complete this topic Varicella Vaccines Aged Out No longer eligible based on patient's age to complete this topic Procedures Procedure Name Priority Date/Time Associated Diagnosis Comments CBC WITH AUTO DIFFERENTIAL Routine 2024 10:42 AM EDT Testicular hypofunction CBC AND DIFFERENTIAL Routine 2024 10:42 AM EDT Testicular hypofunction from Last 3 Months Results * CBC auto differential (2024 10:42 AM EDT) WBC 5.8 4.8 - 10.8 K/mcL LAB HEMETOLOGY METHOD 2024 1:09 PM EDT [facility] RBC 4.70 4.50 - 5.50 M/mcL LAB HEMETOLOGY METHOD 2024 1:09 PM EDT [facility] Hemoglobin 14.8 13.5 - 17.5 g/dL LAB HEMETOLOGY METHOD 2024 1:09 PM EDT [facility] Hematocrit 44.0 42.0 - 54.0 % LAB HEMETOLOGY METHOD 2024 1:09 PM EDT [facility] MCV 92.8 79.0 - 98.0 FL LAB HEMETOLOGY METHOD 2024 1:09 PM [facility] MCH 31.2 27.0 - 32.0 pcg LAB HEMETOLOGY METHOD 2024 1:09 PM [facility] MCHC 33.6 32.0 - 37.0 g/dL LAB HEMETOLOGY METHOD 2024 1:09 PM [facility] RDW 12.7 11.0 - 15.0 % LAB HEMETOLOGY METHOD 2024 1:09 PM [facility] Platelets 253 130 - 400 K/mcL LAB HEMETOLOGY METHOD 2024 1:09 PM [facility] MPV 9.9 7.0 - 11.0 FL LAB HEMETOLOGY METHOD 2024 1:09 PM [facility] NRBC 0.0 <1.0 % LAB HEMETOLOGY METHOD 2024 1:09 PM [facility] NRBC Absolute 0.00 <0.10 K/mcL LAB HEMETOLOGY METHOD 2024 1:09 PM [facility] Neutrophils Relative 56.1 % LAB HEMETOLOGY METHOD 2024 1:09 PM [facility] Lymphocytes Relative 31.7 % LAB HEMETOLOGY METHOD 2024 1:09 PM [facility] Monocytes Relative 9.1 % LAB HEMETOLOGY METHOD 2024 1:09 PM [facility] Eosinophils Relative 1.9 % LAB HEMETOLOGY METHOD 2024 1:09 PM [facility] Basophils Relative 0.9 % LAB HEMETOLOGY METHOD 2024 1:09 PM [facility] Immature Granulocytes Relative 0.3 % LAB HEMETOLOGY METHOD 2024 1:09 PM EDT [facility] Neutrophils Absolute 3.26 1.50 - 7.00 K/mcL LAB HEMETOLOGY METHOD 2024 1:09 PM EDT [facility] Lymphocytes Absolute 1.84 1.00 - 5.00 K/mcL LAB HEMETOLOGY METHOD 2024 1:09 PM EDT [facility] Monocytes Absolute 0.53 0.20 - 1.00 K/mcL LAB HEMETOLOGY METHOD 2024 1:09 PM EDT [facility] Eosinophils Absolute 0.11 0.00 - 0.50 K/mcL LAB HEMETOLOGY METHOD 2024 1:09 PM EDT [facility] Basophils Absolute 0.05 0.00 - 0.20 K/mcL LAB HEMETOLOGY METHOD 2024 1:09 PM EDT [facility] Immature Granulocytes Absolute 0.02 0.00 - 0.03 K/mcL LAB HEMETOLOGY METHOD 2024 1:09 PM EDT [facility] Blood Venous blood specimen / Unknown 2024 10:42 AM EDT 2024 12:14 PM EDT us Brittney GONZALEZ LAB BLOOD ORDERABLES Final Res ult [facility] [address] [place] [address], from Last 3 Months Insurance [facility] [employer] Care Teams Back Tender Pulp Drier Relationship Specialty Start Date End Date Cleve Catherine MD [address] [place] [address] PCP - General Internal Medicine 10/03/21
--- OUTSIDE RECORDS SUMMARY | 2024-12-06 12:03 | XMS_ITS | Clinical Summary ---
Author Organization [employer] Address [address] [facility] [address] [place] [address] Care Team Providers Care Mask Former Name Role Phone Unavailable Primary Care Provider [...] Active Active Problems No known active problems Social History Tobacco Use Types Packs/Day Years [...] Procedure Name Priority Date/Time Associated Diagnosis Comments PROPHYLAXIS - ADULT Routine 09/05/2024 1 0:00 AM EST INTRAORAL - COMPLETE SERIES OF RADIOGRAPHIC IMAGES Routine 09/05/2024 10:00 AM EST COMPREHENSIVE ORAL EVALUATION - NEW OR ESTABLISHED PATIENT Routine 09/05/2024 10:00 AM EST from Last 3 Months or Most Recently Relevant to Health Maintenance Insurance [facility]
== END 2024-12-06 11:25 | disposition home or self-care (01) ==
LOC: HO.HGI 10:20
PROVIDERS: PCP Internal Medicine; Visit Provider Nurse Practitioner Family
DX: R14.0 Abdominal distension (gaseous) (principal); R19.4 Change in bowel habit; K64.9 Unspecified hemorrhoids
CPT/HCPCS: 99214

== ENCOUNTER → 2024-12-06 10:19 | Outpatient (BNVA) | payer OTHER, SELFPAY | PROVIDERS: PCP Internal Medicine; Visit Provider Nurse Practitioner Family | DX: K64.9 Unspecified hemorrhoids (principal); K59.01 Slow transit constipation; R14.0 Abdominal distension (gaseous); R10.10 Upper abdominal pain, unspecified; R19.4 Change in bowel habit | CPT/HCPCS: 99212 ==

== ENCOUNTER 2024-12-12 10:47 | Outpatient (AMB) | payer OTHER, SELFPAY ==
[2024-12-12 10:51] VITALS: BP 132/78; PULSE 74; O2SAT 98; BMI 33.5
--- NOTE | 2024-12-12 10:51 | A.OFFPC_ITS ---
Vital Signs 12/12/24 10:51 Height 5 ft 9 in Weight 227 lb 2 oz BMI 33.5 BP 132/78 Blood Pressure Location Rt brachial Position Sitting Pulse 74 Pulse Source Pulse Oximeter Pulse Oximetry (%) 98 Oxygen Delivery Method Room Air Intake Visit Reasons: 4months f/u Allergies No Known Allergies Allergy (Verified 12/12/24 10:58) Medication List - Last Reconciled 12/12/24 by Cleve Catherine MD blood pressure monitor (Blood Pressure Kit) Use to check blood pressure daily cholecalciferol (vitamin D3) 50 mcg PO ONCE cyanocobalamin (vitamin B-12) 1,000 mcg PO 2XW 90 days sennosides (Natural Senna Laxative) 17.2 mg (2 x 8.6 mg) PO BEDTIME simethicone 125 mg PO BID-QID PRN testosterone cypionate 400 mg IM Q3W valsartan 80 mg (2 x 40 mg) PO DAILY vibegron (Gemtesa) 75 mg PO DAILY Tobacco use date assessed: 12/12/24 Dental Screening Dental Screen Date: 12/12/24 Did you have a dental visit in the last 12 months?: Yes Did you have a dental problem in the last 6 months where you did not have access to dental care?: No Was dental information given to patient?: Patient has dentist HPI 4months f/u HPI Details The patient is a 59 year old male presenting with evaluation for a chronic cough and gastrointestinal issues. along with other medical problem follow-up - Chronic cough persisting over a month, occasionally tickling sensation and mucus, more pronounced in recumbent position. - Experiencing gas and bloating, with mi nimal effect from Simethicone. prescri bed by Gastroenterology, patient had recent initial visit - Liver ultrasound reveals fatty liver a nd elevated liver enzymes; initiated dietary adjustments recommended. - Fasting glucose was reported at 117 mg /dL and A1c 5.9%, identifying prediabetes, requiring lifestyle modifications. - The patient likely has lactose intoler ance, exacerbated by significant cheese consumption. recommend start taking Lactaid tablets before dairy - Recommended dietary modifications to a ddress prediabetes and lactose intolerance, including reduced intake of flour and sugar, increased fiber, and reduced cheese consumption. - Future tests to include kidney functio n monitoring. 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 5 - blood pressure is stable, continue va lsartan 80 mg - constipation addressed with the help of Senokot tablets - continue vitamin-D and B12 supplement s Problem List - Prediabetes - Gastroesophageal Reflux Disease (GERD) - Elevated Liver Enzymes/Fatty Liver sec ondary to fatty liver - Hyperlipidemia - Hypertension - Chronic Cough most likely secondary to GERD to be addressed through Gastroenterology - Gastrointestinal Gas/Bloating - Possible Lactose Intolerance Diagnostic results - Labs: Fasting glucose 117 mg/dL, A1c 5 .9%, elevated liver enzymes without specified values - Tests and diagnostics: Abdominal ultra sound revealing fatty liver Review of Systems General: No fever no chills neurological: No headaches no dizziness ear nose throat: No sore throat no hearing difficulty no ear pain cardiovascular: No syncope, no chest pain, no palpitations gastrointestinal: No nausea vomiting or diarrhea endocrine: No polyuria polydipsia no heat intolerance genitourinary: No dysuria skin: No new complaints Physical Exam general: No acute distress HEENT: No acute findings, patient reports a persistent cough with mucus neck: Supple respiratory system: Able to talk in full sentences, no audible wheeze, no stridor cardiovascular: S1-S2 regular in rate and rhythm gastrointestinal: No pain, but patient reports gas and possible reflux; fatty liver noted on ultrasound extremities: No new findings LIQUEFIED PETROLEUM GASFITTER: Alert awake oriented x3 motor sensory intact skin: Normal turgor PFSH Medical History Colon cancer screening Epigastric pain Bone spur of ankle HTN (hypertension) Surgical History Hx of colonoscopy Family History Other Bone spur of ankle Social History Housing: House Patient Tobacco Use Status: Never used Tobacco e-Cigarette/Vaping Use: Never Used service: No Current occupational status: employed 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 66265 - PHQ-9 Billing: Patient declined-do not bill Source: Developed by Drs. Erasmo Morel, Rich Chicas and colleagues, with an educational lane from [employer]. Thrive Questionnaire Date Thrive assessed: 12/12/24 I am a: Patient What is your living situation today?: I have a steady place to live Within the past 12 months, did the food you bought not last and you didn't have the money to get more?: Sometimes True Within the past 12 months, did you worry whether your food would run out before you got money to buy more?: Sometimes True Do you have trouble paying for medicines?: No Do you have trouble getting transportation to medical appointments?: No Do you have trouble paying your heating and electricity bill?: No Do you have trouble taking care of your child, family member or friend?: No Do you have trouble with day-to-day activities such as bathing, preparing meals, shopping, managing finances, etc.?: No Are you currently unemployed and looking for a job?: No Are you interested in more education?: No Please select the resources that you would like help with: None Currently or been in a relationship where the following occur: I choose not to answer THRIVE Score: 2 AUDIT C Alcohol Use Questionnaire (AUDIT-C) 1. How often do you have a drink containing alcohol?: Never 3. How often do you have six or more drinks on one occasion?: Never Total Score: 0 Score Reviewed/Action Taken: Yes NATHALIE-7 AMB Questionnaire NATHALIE-7 Date NATHALIE - 7 assessed: 10/18/24 Source: Developed by Drs. Erasmo Morel, Marbella Rutherford, Rich Mann and colleagues, with an educational lane from [employer]. Physical exam (Primary Care) Vital Signs: Last Vital Signs Pulse 74 12/12/24 10:51 BP 132/78 12/12/24 10:51 Pulse Ox 98 12/12/24 10:51 Oxygen Delivery Method Room Air 12/12/24 10:51 BMI result Body Mass Index 33.5 Tobacco/Smoking Status: Tobacco use Status Tobacco use date assessed 12/12/24 12/12/24 10:58 Patient Tobacco Use Status Never used Tobacco 12/12/24 10:54 e-Cigarette/Vaping Use Never Used 12/12/24 10:54 Thrive Assessment: Date of Thrive Assessment Date Thrive assessed 12/12/24 12/12/24 10:58 Currently or been in a relationship where the following occur: I choose not to answer Coding Level of Care Code Est Pt Level 4 (59950) Complex EM visit Add On G2211 Diagnoses Hypertension, essential, benign I10 Class 1 obesity due to excess calories with serious comorbidity and body mass index (BMI) of 32.0 to 32.9 in adult E66.09; Z68.32 Body mass index: BMI 32.0-32.9 Obesity classification: adult class 1 (BMI 30 - 34.9) Serious obesity comorbidity presence: with serious comorbidity Impaired fasting blood sugar R73.01 Excessive gas R14.3 Chronic cough R05.3 Fatty liver K76.0 Constipation by delayed colonic transit K59.01 Assessment & Plan Assessment & Plan (1) Hypertension, essential, benign: Code(s): I10 - Essential (primary) hypertension Category: Medical (2) Obesity due to excess calories: Code(s): E66.09 - Other obesity due to excess calories Category: Medical Qualifiers: Body mass index: BMI 32.0-32.9 Obesity classification: adult class 1 (BMI 30 - 34.9) Serious obesity comorbidity presence: with serious comorbidity Qualified Code(s): E66.09 - Other obesity due to excess calories; Z68.32 - Body mass index [BMI] 32.0-32.9, adult (3) Impaired fasting blood sugar: Code(s): R73.01 - Impaired fasting glucose Category: Medical (4) Excessive gas: Code(s): R14.3 - Flatulence Category: Medical (5) Chronic cough: Code(s): R05.3 - Chronic cough Category: Medical (6) Fatty liver: Code(s): K76.0 - Fatty (change of) liver, not elsewhere classified Category: Medical (7) Constipation by delayed colonic transit: Code(s): K59.01 - Slow transit constipation Category: Medical Plan The patient is a 59 year old male presenting with evaluation for a chronic cough and gastrointestinal issues. along with other medical problem follow-up - Chronic cough persisting over a month, occasionally tickling sensation and mucus, more pronounced in recumbent position. - Experiencing gas and bloating, with minimal effect from Simethicone. prescribed by Gastroenterology, patient had recent initial visit - Liver ultrasound reveals fatty liver and elevated liver enzymes; initiated dietary adjustments recommended. - Fasting glucose was reported at 117 mg/dL and A1c 5.9%, identifying prediabetes, requiring lifestyle modifications. - The patient likely has lactose intolerance, exacerbated by significant cheese consumption. recommend start taking Lactaid tablets before dairy - Recommended dietary modifications to address prediabetes and lactose intolerance, including reduced intake of flour and sugar, increased fiber, and reduced cheese consumption. - Future tests to include kidney function monitoring. 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 and found to have protein in his urine recently - struggling to lose weight, BMI is 33.5 - blood pressure is stable, continue valsartan 80 mg - constipation addressed with the help of Senokot tablets - continue vitamin-D and B12 supplements Problem List - Prediabetes - Gastroesophageal Reflux Disease (GERD) - Elevated Liver Enzymes/Fatty Liver secondary to fatty liver - Hyperlipidemia - Hypertension - Chronic Cough most likely secondary to GERD to be addressed through Gastroenterology - Gastrointestinal Gas/Bloating - Possible Lactose Intolerance Diagnostic results - Labs: Fasting glucose 117 mg/dL, A1c 5.9%, elevated liver enzymes without specified values - Tests and diagnostics: Abdominal ultrasound revealing fatty liver Orders: Orders UA CC w/rflx Micro + Cult Today E66.09 - Other obesity due to excess calories, I10 - Essential (primary) hypertension, K59.01 - Slow transit constipation, K76.0 - Fatty (change of) liver, not elsewhere classified, R05.3 - Chronic cough, R14.3 - Flatulence, R73.01 - Impaired fasting glucose, Z68.32 - Body mass index [BMI] 32.0-32.9, adult Hemoglobin A1c Today E66.09 - Other obesity due to excess calories, I10 - Essential (primary) hypertension, K59.01 - Slow transit constipation, K76.0 - Fatty (change of) liver, not elsewhere classified, R05.3 - Chronic cough, R14.3 - Flatulence, R73.01 - Impaired fasting glucose, Z68.32 - Body mass index [BMI] 32.0-32.9, adult Complete Blood Count Auto Diff Today E66.09 - Other obesity due to excess calories, I10 - Essential (primary) hypertension, K59.01 - Slow transit constipation, K76.0 - Fatty (change of) liver, not elsewhere classified, R05.3 - Chronic cough, R14.3 - Flatulence, R73.01 - Impaired fasting glucose, Z68.32 - Body mass index [BMI] 32.0-32.9, adult Comprehensive Trade. Panel Fast Today E66.09 - Other obesity due to excess calories, I10 - Essential (primary) hypertension, K59.01 - Slow transit constipation, K76.0 - Fatty (change of) liver, not elsewhere classified, R05.3 - Chronic cough, R14.3 - Flatulence, R73.01 - Impaired fasting glucose, Z68.32 - Body mass index [BMI] 32.0-32.9, adult
--- OUTSIDE RECORDS SUMMARY | 2024-12-12 12:55 | XMS_ITS | Clinical Summary ---
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
--- OUTSIDE RECORDS SUMMARY | 2024-12-12 12:55 | XMS_ITS | Encounter Summary ---
Author Organization [facility] Address [address] [place] [address] Care Team Providers Care Photographic Equipment Mechanic Name Role Phone Cleve Catherine MD Primary Care Provider Encounter Details Date Type Department Care Team (Late st Contact Info) Description 2024 Lab Requisition [facility] - Main Lab [address] [place] [address] Brittney Leahy PA [address] [place] [address] Testicular hypofunction Social History Tobacco Use Types [...] AM EDT) WBC 5.8 4.8 - 10.8 K/[facility] LAB HEMETOLOGY METHOD 2024 1:09 PM EDT [facility] RBC 4.70 4.50 - 5.50 M/[facility] LAB HEMETOLOGY METHOD 2024 1:09 PM EDT [facility] Hemoglobin 14.8 13.5 - 17.5 g/dL [facility] Hematocrit 44.0 42.0 - 54.0 % LAB HEMETOLOGY METHOD 2024 1:09 PM [facility] MCV 92.8 79.0 - 98.0 FL LAB HEMETOLOGY METHOD 2024 1:09 PM [facility] MCH 31.2 27.0 - 32.0 pcg LAB HEMETOLOGY METHOD 2024 1:09 PM [facility] MCHC 33.6 32.0 - 37.0 g/dL LAB HEMETOLOGY METHOD 2024 1:09 PM [facility] RDW 12.7 11.0 - 15.0 % LAB HEMETOLOGY METHOD 2024 1:09 PM [facility] Platelets 253 130 - 400 K/mcL LAB HEMETOLOGY METHOD 2024 1:09 PM [facility] MPV 9.9 7.0 - 11.0 FL LAB HEMETOLOGY METHOD 2024 1:09 PM [facility] NRBC 0.0 <1.0 % LAB HEMETOLOGY METHOD 2024 1:09 PM [facility] NRBC Absolute 0.00 <0.10 K/mcL LAB HEMETOLOGY METHOD 2024 1:09 PM [facility] Neutrophils Relative 56.1 % LAB HEMETOLOGY METHOD 2024 1:09 PM [facility] Lymphocytes Relative 31.7 % LAB HEMETOLOGY METHOD 2024 1:09 PM [facility] Monocytes Relative 9.1 % LAB HEMETOLOGY METHOD 2024 1:09 PM EDT [facility] Eosinophils Relative 1.9 % LAB HEMETOLOGY METHOD 2024 1:09 PM EDT [facility] Basophils Relative 0.9 % [facility] Immature Granulocytes Relative 0.3 % LAB HEMETOLOGY METHOD 2024 1:09 PM EDT [facility] Neutrophils Absolute 3.26 1.50 - 7.00 K/mcL LAB HEMETOLOGY METHOD 2024 1:09 PM EDT [facility] Lymphocytes Absolute 1.84 1.00 - 5.00 K/mcL [facility] Monocytes Absolute 0.53 0.20 - 1.00 K/mcL LAB HEMETOLOGY METHOD 2024 1:09 PM EDT [facility] Eosinophils Absolute 0.11 0.00 - 0.50 K/mcL LAB HEMETOLOGY METHOD 2024 1:09 PM T [facility] Basophils Absolute 0.05 0.00 - 0.20 K/mcL LAB HEMETOLOGY METHOD 2024 1:09 PM [facility] Immature Granulocytes Absolute 0.02 0.00 - 0.03 K/mcL LAB HEMETOLOGY METHOD 2024 1:09 PM T [facility] Blood Venous blood specimen / Unknown 2024 10:42 AM EDT 2024 12:14 PM EDT us Brittney GONZALEZ LAB BLOOD ORDERABLES Final Res ult [facility] [address] [place] [address], documented in this encounter Visit Diagnoses Diagnosis Testicular hypofunction Other testicular hypofunction documented in this encounter Care Teams Photographic Equipment Mechanic Relationship Specialty Start Date End Date Cleve Catherine MD [address] [place] [address] PCP - General Internal Medicine 10/03/21 documented as of this encounter
== END 2024-12-12 11:17 | disposition home or self-care (01) ==
LOC: HO.HMCC 10:48
PROVIDERS: PCP Internal Medicine; Visit Provider Internal Medicine
DX: I10 Essential (primary) hypertension (principal); E66.09 Other obesity due to excess calories; Z68.32 Body mass index [BMI] 32.0-32.9, adult; R73.01 Impaired fasting glucose; R14.3 Flatulence; R05.3 Chronic cough; K76.0 Fatty (change of) liver, not elsewhere classified; K59.01 Slow transit constipation

== ENCOUNTER → 2024-12-12 10:47 | Outpatient (BNVA) | payer OTHER, SELFPAY | PROVIDERS: PCP Internal Medicine; Visit Provider Internal Medicine | DX: I10 Essential (primary) hypertension (principal); E66.09 Other obesity due to excess calories; Z68.32 Body mass index [BMI] 32.0-32.9, adult; R73.01 Impaired fasting glucose; R14.3 Flatulence; R05.3 Chronic cough; K76.0 Fatty (change of) liver, not elsewhere classified; K59.01 Slow transit constipation; Z71.3 Dietary counseling and surveillance | CPT/HCPCS: 99212 ==

== ENCOUNTER 2025-03-02 10:48 | Outpatient (REF) | payer OTHER, SELFPAY ==
[2025-03-02 11:03] LABS: MANUAL DIFF FLAG NO
--- OUTSIDE RECORDS SUMMARY | 2025-03-02 11:15 | XMS_ITS | Clinical Summary ---
Author Organization [address] [facility] Address [address] [place] [address] Phone Care Team Providers Care Test Clerk Name Role Phone Cleve Catherine MD Primary Care Provider Social History Tobacco Use Types Packs/Day Years [...] Influencers of Health Screening 08/22/2022 COVID-19 Vaccine (2023-2 5 season) 2024 Influenza Vaccine (Season Ended) 2025 07/07/2018, 06/19/2016 RSV Immunization Adult Patients (1 - 1-dose 75+ series) 2040 HIB [...] age to complete this topic Meningococcal B Vaccine Aged Out No l onger eligible based on patient's age to complete [...] on patient's age to complete this topic Insurance [facility] Care Teams Test Clerk Relationship Specialty Start Date End Date Cleve Catherine MD [address] [place] [phone] PCP - General Internal Medicine 10/03/21
[2025-03-02 12:26] LABS: Basophils Percent Auto 0.6 % (0-2); Eosinophils Absolute Auto 0.1 X10*3/uL (0.0-0.4); Eosinophils Percent Auto 2.3 % (0-4); Hematocrit 44.7 % (42.0-52.0); Hemoglobin 14.8 g/dl (14.0-18.0); Imm Gran Abs Auto 0.01 X10*3/uL (0.00-0.03); Imm Gran Pct Auto 0.2 % (0.0-0.4); Lymphocytes Absolute Auto 1.8 X10*3/uL (1.2-4.9); Lymphocytes Percent Auto 36.1 % (20-40); Mean Corpuscular HGB Conc 33.1 g/dl (31.0-36.0); Mean Corpuscular Hemoglobin 30.6 pg (27.0-33.0); Mean Corpuscular Volume 92.4 fL (80.0-98.0); Mean Platelet Volume 9.7 fL (9.4-12.4); Monocytes Absolute Auto 0.5 X10*3/uL (0.1-1.2); Monocytes Percent Auto 10.9 % (2-11); Neutrophils Absolute Auto 2.4 x10*3/uL (2.0-8.3); Neutrophils Percent Auto 49.9 % (45-73); Platelet Count 217 X10*3/uL (160-400); Red Blood Count 4.84 X10*6/uL (4.60-5.80); Red Cell Distribution Width 13.2 % (11.0-16.0); White Blood Count 4.9 X10*3/uL (4.8-10.8)
[2025-03-02 12:45] LABS: Estimated Average Glucose 111 mg/dL; Hemoglobin A1c % 5.5 % (<6.0); Total Hemoglobin (HGBA1C) 3828.3518 umol/L
[2025-03-02 12:45] LABS: Appearance Urine Clear; Color Urine Yellow; Glucose Urine UA Negative (Negative); Leukocyte Esterase Urine Negative (Negative); Nitrite Urine Negative (Negative); PH 5.5 (5.0-9.0); Specific Gravity - Urine 1.025 (1.005-1.025); Urine Blood Negative (Negative); Urine Ketones Trace mg/dL (Negative); Urine Protein Negative (Neg-Trace)
[2025-03-02 13:10] LABS: Alkaline Phosphatase 68 U/L (39-117); Anion Gap 10 (12-20); Aspartate Amino Transferase 29 U/L (5-37); Blood Urea Nitrogen 18 mg/dL (9-16); Calcium 9.9 mg/dL (8.4-10.2); Carbon Dioxide 25 mmol/L (22-29); Chloride 106 mmol/L (96-108); Cholesterol 215 mg/dL (<200); Estimated Glomerular Filt Rate > 60; Glucose Fasting 99 mg/dL (60-99); HDL Cholesterol 45 mg/dL (>40); LDL Cholesterol Calculated 148 mg/dL (<100); Potassium 3.9 mmol/L (3.3-5.1); Sodium 137 mmol/L (135-145); Total Protein 7.8 g/dL (6.5-8.0); Triglycerides 111 mg/dL (<150)
[2025-03-02 13:37] LABS: Alanine Aminotransferase 33 U/L (0-40); TSH reflex Free T4 0.97 uIU/mL (0.32-4.0)
== END 2025-03-02 10:49 | disposition home or self-care (01) ==
LOC: HO.LAB 10:48
PROVIDERS: PCP Internal Medicine; Visit Provider Nurse Practitioner Family
DX: R14.0 Abdominal distension (gaseous) (principal); Z91.09 Other allergy status, other than to drugs and biological substances; R73.01 Impaired fasting glucose; E55.9 Vitamin D deficiency, unspecified; E66.09 Other obesity due to excess calories; Z68.32 Body mass index [BMI] 32.0-32.9, adult; I10 Essential (primary) hypertension; E53.8 Deficiency of other specified B group vitamins; R14.3 Flatulence; R05.3 Chronic cough; K76.0 Fatty (change of) liver, not elsewhere classified; K59.01 Slow transit constipation
CPT/HCPCS: 36415; 80053; 80061; 81003; 83036; 84443; 85025

== ENCOUNTER 2025-03-13 10:04 | Outpatient (AMB) | payer OTHER, SELFPAY ==
--- NOTE | 2025-03-13 10:07 | A.OFFVIS_ITS ---
Vital Signs 03/13/25 10:13 Height 5 ft 9 in Weight 200 lb BMI 29.5 BP 122/76 Blood Pressure Location Rt brachial Position Sitting Pulse 52 Pulse Source Pulse Oximeter Pulse Oximetry (%) 99 Oxygen Delivery Method Room Air Intake Visit Reasons: 3 mos FUV. CIC mgmt. Intake Note: ESTABLISHED PATIENT for mgmt of epigastric pain / GERD. Labs done after being reminded 02/26. Chief Complaint; C.O. fecal inconsistencies, nausea, and epigastric pressure. Agriculture Research Director Required: No Accompanied by: Self / Same As Patient Allergies No Known Allergies Allergy (Verified 03/13/25 10:12) HPI HPI 3 mos FUV. CIC mgmt.: Details: LAST VISIT: Bloating Upper abdominal pain Frequent bowel movements Bleeding hemorrhoids Constipation Plan Patient reports 2-3 bowel movements a day. Feeling like he does not empty his bowels. He will start taking fiber supplements and he can take senna at bedtime to help her move his bowels better. Increase fluid intake and activity to promote better bowel motility. Patient reports significant bloating. Hyperactive bowels. Patient admits to be very gassy, both belching and passing gas. Will check lipase, vitamin level, transglutaminase, liver enzymes. Discussed with patient avoiding dietary triggers and late night snacking. Discussed with him low FODMAP diet. List of food recommended as well as list of food to avoid given to patient. We also discussed low-salt, low sodium and low carb diet. Patient was encouraged to eat more protein. Follow-up in 2-3 months, sooner on as needed basis. Patient is agreeable to this plan and verbalizes understanding of instructions. He was given the opportunity to ask questions and all questions answered. ? Thank you for allowing me to participate in his care Orders Vitamin K1 Today R10.10, R14.0 Lipase Today R10.9 Liver Panel Today R74.01 Transglutaminase IgA Today R10.9 Vitamin B12 and Folate Today R19.7 New sennosides (Natural Senna Laxative) 17.2 mg (2 x 8.6 mg) PO BEDTIME 60 tabs 3RF constipation K59.00 simethicone 125 mg PO BID-QID PRN 120 caps 3RF abdominal distention TODAY'S VISIT Patient is here today for follow-up and to discuss lab results. Patient went to get his blood work done on 02 of March and only blood work requested by PCP was done and not the blood work that I have ordered last visit. Patient continues to have epigastric pain postprandially and abdominal bloating. Bowel movements still very from diarrhea to constipation. Patient changed his diet and is eating more vegetables. He is taking as needed simethicone and when constipated takes senna. 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 Patient reports occasional dyspepsia and nausea without dysphagia or odynophagia. Patient reports that several years ago he had upper endoscopy in in day found that he had bacteria in his stomach and was treated with antibiotics. We will add H pylori testing to visit today. Patient is not on any PPI. He does not report of any acid reflux. 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 Cognitive needs: No Hearing needs: No Vision needs: No Review of Systems Const Denies weight gain and Denies weight loss ENT Reports no additional complaints, Denies dysphagia and Denies odynophagia Card Reports no additional complaints Resp Reports no additional complaints GI Reports abdominal pain, Denies belching, Denies melena, Reports bloating, Denies change in bowel habits, Reports constipation, Denies dysphagia, Denies excessive flatus, Denies dyspepsia, Reports heartburn, Denies diarrhea, Reports loose stools, Denies nausea, Denies odynophagia and Denies vomiting Reports no additional complaints Musc Reports no additional complaints Neuro Reports no additional complaints Psych Reports no additional complaints Endo Reports no additional complaints Physical Exam Vital Signs: Last Vital Signs Pulse 52 03/13/25 10:13 BP 122/76 03/13/25 10:13 Pulse Ox 99 03/13/25 10:13 Oxygen Delivery Method Room Air 03/13/25 10:13 BMI result Body Mass Index 29.5 Const General: healthy appearing, no acute distress and well developed Nutritional Appearance: well nourished and obese Orientation/consciousness: patient oriented x3 Resp Effort & Inspection: normal respiratory effort, able to speak in complete sentences, no tracheal deviation and symmetric chest movement Auscultation: clear to auscultation bilaterally Cardio Rate: regular rate GI Inspection: Yes normal to inspection, No distended and Yes obesity Palpation (GI): Soft to palpation, not firm, nontender and No hepatosplenomegaly present Auscultation: Hyperactive bowel sounds present General: Yes no CVA tenderness Back/Spine/Pelvis Back: no CVA tenderness Skin General skin exam: elasticity normal, turgor normal and dry skin Neuro General: patient oriented x3 Psych Appearance: grossly normal Mental Status: mental status grossly normal Assessment & Plan Assessment & Plan (1) Fatty liver: Code(s): K76.0 - Fatty (change of) liver, not elsewhere classified Category: Medical (2) Hemorrhoids: Code(s): K64.9 - Unspecified hemorrhoids Category: Medical Qualifiers: Hemorrhoid type: first degree Qualified Code(s): K64.0 - First degree hemorrhoids (3) Frequent bowel movements: Code(s): R19.4 - Change in bowel habit Category: Medical (4) Constipation by delayed colonic transit: Code(s): K59.01 - Slow transit constipation Category: Medical (5) Bloating: Code(s): R14.0 - Abdominal distension (gaseous) Category: Medical (6) Upper abdominal pain: Code(s): R10.10 - Upper abdominal pain, unspecified Category: Medical (7) Postprandial epigastric pain: Code(s): R10.13 - Epigastric pain Plan Patient will go and get his blood work done today. We will add H pylori testing in the office today. Will treat if positive. Patient will be sent for upper GI series with barium swallow. He reports epigastric pain occasional reflux and nausea. We will hold off on starting him on PPI at this time. Patient will start taking fiber [id number]. Recommended Metamucil 3 in 1 fiber with pre and probiotics. Continue senna as needed. Increase fluid intake and activity to promote better bowel motility. Continue low FODMAP diet. Follow-up in 2-3 months, sooner on as needed basis. He is agreeable to this plan and verbalizes understanding of instructions. He was given the opportunity to ask questions and all questions answered. Thank you for allowing me to participate in his care Orders: Orders H Pylori Breath Test Today K21.9 - Gastro-esophageal reflux disease without esophagitis FL upper GI w Ba Swallow Today K21.9 - Gastro-esophageal reflux disease without esophagitis Coding Level of Care Code Est Pt Level 4 (89619) Complex EM visit Add On G2211 Diagnoses Fatty liver K76.0 Grade I hemorrhoids K64.0 Hemorrhoid type: first degree Frequent bowel movements R19.4 Constipation by delayed colonic transit K59.01 Bloating R14.0 Upper abdominal pain R10.10 Postprandial epigastric pain R10.13 Time Spent (min) 35 Comment 25 minutes spent with patient and additional 10 minutes spent reviewing his records
[2025-03-13 10:13] VITALS: BP 122/76; PULSE 52; O2SAT 99; BMI 29.5
--- OUTSIDE RECORDS SUMMARY | 2025-03-13 11:07 | XMS_ITS | Clinical Summary ---
Author Organization [address] [facility] Address [address] [place] [address] Phone Care Team Providers Care Laminated Plastics Assembler And Gluer Name Role Phone Cleve Catherine MD Primary Care Provider [phone] Social History Tobacco Use Types Packs/Day Years [...] patient's age to complete this topic Insurance [facility] Care Teams Laminated Plastics Assembler And Gluer Relationship Specialty Start Date End Date Cleve Catherine MD [address] [place] [id number] PCP - General Internal Medicine 10/03/21
--- OUTSIDE RECORDS SUMMARY | 2025-03-13 11:07 | XMS_ITS | Patient Health Record ---
Author Organization [facility] [place] Address [address] [place] [address] Care Team Providers Care Combat Rifle Crewmember Name Role Phone Name Mac SHAHID Primary Care Provider Obie Portillo Unavailable [phone] Reason For Referral No Information Medications Medication SIG (Take, Route, Fr equency, Duration) Notes Start Date End Date Status Keflex 500 500 MG 1 capsule Orally marychuy ry 12 hrs; Duration: 10 day(s) 04/08/2012 Active Flomax 0.4 MG 1 capsule 30 minutes after the same meal each day Orally Once a day; Duration: 30 day(s) Active Problems Problem Type SNOMED Code ICD Code Onset Dates Problem Status W/U Status Risk Notes Problem Congenital pes planus (29174086) Flat Foot, Congenital (754.61) Active confirmed Problem Paronychia (88802847) Paronychia (681.11) Active confirmed Problem Tinea pedis (1549830) Tinea Pedis (110.4) Active confirmed Problem Abscess /Cellulitis (682.7) Active confirmed Problem Ingrowing nail (389155013) Ingrowing Nail (703.0) Active confirmed Plan Of Treatment Pending Test Test Name Order Date 55548- I&D ABSCESS-COMPLICATED,MULTI Insurance Providers Payer Name Payer Address Payer Phone Subscriber Number Group Number Insured Name Patient Relationship to Insured Coverage Start Date Coverage End Date [employer] [address] [place] [phone] [id number] Haile Cadena Self - patient is the insured Medical (General) History Medical History History ICD Code prostate conditions Surgical History Surgery Date(Month/Year) prostate surgery 2008
--- OUTSIDE RECORDS SUMMARY | 2025-03-13 11:07 | XMS_ITS | Clinical Summary ---
Author Organization [facility] Address [address] [place] [address] [address] [place] [address] Care Team Providers Care Gum Dipper Name Role Phone Unavailable Primary Care Provider [...] Encounters Date Type Department Care Team Description 02/12/2025 Telephone [facility] ADULT D[facility] [address] [place] [address] Mila Watt from Last 3 Months Social History Tobacco [...] Panel 1965 SDOH Screening 1965 Sigmoidoscopy 1965 Disability Screening 1965 Alcohol/Substance Use Screening 1977 Hepatitis C Screening 11/21/1983 Hepatitis B Vaccines (1 of 3 - 19+ 3-dose series) 1984 Pneumococcal Vaccine: 50+ Years (1 of 1 - PCV) 11/21/2015 Zoster Vaccines (2 of 2) 11/06/2022 09/11/2022 COVID-19 Vaccine (3 - season) 2024 10/30/2021, 10/09/2021 Dental Oral Exam 03/07/2025 09/05/2024 Dental Prophylaxis 03/07/2025 09/05/2024 DTaP/Tdap/Td Vaccines (3 - Td or Tdap) 03/27/2025 03/27/2015, 10/26/2008 Influenza Vaccine (Season Ended) 2025 09/11/2022, 07/07/2018, 06/10/2017, Additional history exists Tobacco Screening 09/05/2025 09/05/2024 Dental X-Ray: Bitewings [...] Recently Relevant to Health Maintenance Insurance DENTAL [facility]
== END 2025-03-13 11:11 | disposition home or self-care (01) ==
PROVIDERS: PCP Internal Medicine; Visit Provider Nurse Practitioner Family
DX: K76.0 Fatty (change of) liver, not elsewhere classified (principal); K64.0 First degree hemorrhoids; K59.01 Slow transit constipation; R14.0 Abdominal distension (gaseous); R10.10 Upper abdominal pain, unspecified; R10.13 Epigastric pain
CPT/HCPCS: 99214; G2211

== ENCOUNTER 2025-03-13 10:04 | Outpatient (REF) | payer OTHER, SELFPAY ==
[2025-03-13 12:02] LABS: Alanine Aminotransferase 27 U/L (0-40); Albumin Level 4.9 g/dL (3.5-5.0); Alkaline Phosphatase 56 U/L (39-117); Aspartate Amino Transferase 37 U/L (5-37); Lipase 72 U/L (8-78); Total Protein 7.7 g/dL (6.5-8.0)
[2025-03-13 12:28] LABS: Folate 6.9 ng/mL (> or = 4.0); Vitamin B12 724 pg/mL (200-900)
== END 2025-03-13 10:05 | disposition home or self-care (01) ==
LOC: HO.LAB 10:04
PROVIDERS: PCP Internal Medicine; Visit Provider Nurse Practitioner Family
DX: K21.9 Gastro-esophageal reflux disease without esophagitis (principal); R74.01 Elevation of levels of liver transaminase levels; K76.0 Fatty (change of) liver, not elsewhere classified; K64.9 Unspecified hemorrhoids; K59.01 Slow transit constipation; R14.0 Abdominal distension (gaseous); R10.13 Epigastric pain
CPT/HCPCS: 36415; 80076; 82607; 82746; 83013; 83690; 84597; 86364; 99212

== ENCOUNTER 2025-03-20 11:33 | Outpatient (AMB) | payer OTHER, SELFPAY ==
[2025-03-20 11:42] VITALS: BP 114/72; PULSE 66; TEMP 36.3; O2SAT 97; BMI 29.0
--- NOTE | 2025-03-20 11:42 | MHC.PC.OV ---
Vital Signs 03/20/25 11:42 Height 5 ft 9 in Weight 196 lb 4 oz BMI 29.0 BP 114/72 Blood Pressure Location Rt brachial Position Sitting Pulse 66 Pulse Source Pulse Oximeter Temp 97.4 F Temp Source Temporal Artery Scan Pulse Oximetry (%) 97 Oxygen Delivery Method Room Air Intake Visit Reasons: 3 months Follow up Allergies No Known Allergies Allergy (Verified 03/20/25 11:46) Medication List - Last Reconciled 03/20/25 by Cleve Catherine MD blood pressure monitor (Blood Pressure Kit) Use to check blood pressure daily cholecalciferol (vitamin D3) 50 mcg PO ONCE cyanocobalamin (vitamin B-12) 1,000 mcg PO 2XW 90 days sennosides (Natural Senna Laxative) 17.2 mg (2 x 8.6 mg) PO BEDTIME simethicone 125 mg PO BID-QID PRN testosterone cypionate 400 mg IM Q3W valsartan 80 mg (2 x 40 mg) PO DAILY Tobacco use date assessed: 03/20/25 Dental Screening Dental Screen Date: 12/12/24 Did you have a dental visit in the last 12 months?: Yes Did you have a dental problem in the last 6 months where you did not have access to dental care?: No Was dental information given to patient?: Patient has dentist HPI 3 months Follow up HPI Details Ongoing care/follow-up appointment - The patient is a 59-year-old male presenting with symptoms of inguinal hernia. - The patient reports developing pain on the right side of the abdomen, primarily when coughing or blowing his nose. - Symptoms have progressively worsened over time, with the patient noting a bulge in the area. - The discomfort began after engaging in activities involving heavy lifting, such as handling cement and leisa materials. 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 - No immediate pain upon palpation, but there is noticeable bulging and discomfort exacerbated by physical activities and pressure. 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 - Recent dietary modification to reduce sugar intake, specifically stopping sugar with coffee. Diagnostic Results: - Labs: Complete blood count (CBC) normal; electrolytes within normal limits; liver enzymes normal; thyroid function normal; vitamin B12 levels adequate; kidney function tests normal; blood glucose level acceptable. Problem List - Hypertension, well-managed with medication. - constipation - bloating - low testosterone level - vitamin-D deficiency - right inguinal her Patient Instructions - Avoid lifting heavy objects to prevent exacerbation of hernia symptoms. - Consider using a hernia belt when engaging in activities that require physical exertion. - Maintain current hypertensive medication regimen as prescribed. - Continue with Vitamin D and B12 supplementation. - Return for follow-up in June to assess hernia status. Review of Systems - General: No fever no chills - Neurological: No headaches no dizziness - Ear nose throat: No sore throat no hearing difficulty no ear pain - Cardiovascular: No syncope, no chest pain, no palpitations - Gastrointestinal: No nausea vomiting or diarrhea - Endocrine: No polyuria polydipsia no heat intolerance - Genitourinary: No dysuria , no blood in urine Physical Exam General: No acute distress HEENT: No acute findings Neck: Supple Respiratory system: Able to talk in full sentences, no audible wheeze Cardiovascular: S1-S2 regular in rate and rhythm Gastrointestinal: Pain noted right inguinal area with pressure mild Extremities: No new findings 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 BANK 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: Alert awake oriented x3 motor sensory intact Skin: Normal turgor PFSH Medical History Colon cancer screening Epigastric pain Bone spur of ankle HTN (hypertension) Surgical History Hx of colonoscopy Family History Other Bone spur of ankle Social History Housing: House Patient Tobacco Use Status: Never used Tobacco e-Cigarette/Vaping Use: Never Used service: No Current occupational status: employed 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 24436 - PHQ-9 Billing: Patient declined-do not bill Source: Developed by Drs. Erasmo Morel, Marbella Rutherford, Rich Mann and colleagues, with an educational lane from [employer]. Thrive Questionnaire Date Thrive assessed: 03/20/25 I am a: Patient What is your living situation today?: I have a steady place to live Within the past 12 months, did the food you bought not last and you didn't have the money to get more?: Sometimes True Within the past 12 months, did you worry whether your food would run out before you got money to buy more?: Sometimes True Do you have trouble paying for medicines?: No Do you have trouble getting transportation to medical appointments?: No Do you have trouble paying your heating and electricity bill?: No Do you have trouble taking care of your child, family member or friend?: No Do you have trouble with day-to-day activities such as bathing, preparing meals, shopping, managing finances, etc.?: No Are you currently unemployed and looking for a job?: No Are you interested in more education?: No Please select the resources that you would like help with: None Currently or been in a relationship where the following occur: I choose not to answer THRIVE Score: 2 AUDIT C Alcohol Use Questionnaire (AUDIT-C) 1. How often do you have a drink containing alcohol?: Never 3. How often do you have six or more drinks on one occasion?: Never Total Score: 0 Score Reviewed/Action Taken: Yes NATHALIE-7 AMB Questionnaire NATHALIE-7 Date NATHALIE - 7 assessed: 03/20/25 Source: Developed by Drs. Erasmo Morel, Marbella Rutherford, Rich Mann and colleagues, with an educational lane from [employer]. Physical exam (Primary Care) Vital Signs: Last Vital Signs Temp 97.4 F 03/20/25 11:42 Pulse 66 03/20/25 11:42 BP 114/72 03/20/25 11:42 Pulse Ox 97 03/20/25 11:42 Oxygen Delivery Method Room Air 03/20/25 11:42 BMI result Body Mass Index 29.0 Tobacco/Smoking Status: Tobacco use Status Tobacco use date assessed 03/20/25 03/20/25 11:48 Patient Tobacco Use Status Never used Tobacco 03/20/25 11:48 e-Cigarette/Vaping Use Never Used 03/20/25 11:48 Thrive Assessment: Date of Thrive Assessment Date Thrive assessed 03/20/25 03/20/25 11:48 Currently or been in a relationship where the following occur: I choose not to answer Coding Level of Care Code Est Pt Level 4 (68679) Complex EM visit Add On G2211 Diagnoses Inguinal hernia, right K40.90 Hypertension, essential, benign I10 Class 1 obesity due to excess calories with serious comorbidity and body mass index (BMI) of 32.0 to 32.9 in adult E66.09; Z68.32 Obesity classification: adult class 1 (BMI 30 - 34.9) Serious obesity comorbidity presence: with serious comorbidity Body mass index: BMI 32.0-32.9 Impaired fasting blood sugar R73.01 Fatty liver K76.0 Constipation by delayed colonic transit K59.01 Assessment & Plan Assessment & Plan (1) Inguinal hernia, right: Code(s): K40.90 - Unilateral inguinal hernia, without obstruction or gangrene, not specified as recurrent Category: Medical (2) Hypertension, essential, benign: Code(s): I10 - Essential (primary) hypertension Category: Medical (3) Obesity due to excess calories: Code(s): E66.09 - Other obesity due to excess calories Category: Medical Qualifiers: Obesity classification: adult class 1 (BMI 30 - 34.9) Serious obesity comorbidity presence: with serious comorbidity Body mass index: BMI 32.0-32.9 Qualified Code(s): E66.09 - Other obesity due to excess calories; Z68.32 - Body mass index [BMI] 32.0-32.9, adult (4) Impaired fasting blood sugar: Code(s): R73.01 - Impaired fasting glucose Category: Medical (5) Fatty liver: Code(s): K76.0 - Fatty (change of) liver, not elsewhere classified Category: Medical (6) Constipation by delayed colonic transit: Code(s): K59.01 - Slow transit constipation Category: Medical Plan Ongoing care/follow-up appointment - The patient is a 59-year-old male presenting with symptoms of inguinal hernia. - The patient reports developing pain on the right side of the abdomen, primarily when coughing or blowing his nose. - Symptoms have progressively worsened over time, with the patient noting a bulge in the area. - The discomfort began after engaging in activities involving heavy lifting, such as handling cement and leisa materials. 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 - No immediate pain upon palpation, but there is noticeable bulging and discomfort exacerbated by physical activities and pressure. 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 - Recent dietary modification to reduce sugar intake, specifically stopping sugar with coffee. Diagnostic Results: - Labs: Complete blood count (CBC) normal; electrolytes within normal limits; liver enzymes normal; thyroid function normal; vitamin B12 levels adequate; kidney function tests normal; blood glucose level acceptable. Problem List - Hypertension, well-managed with medication. - constipation - bloating - low testosterone level - vitamin-D deficiency - right inguinal her Patient Instructions - Avoid lifting heavy objects to prevent exacerbation of hernia symptoms. - Consider using a hernia belt when engaging in activities that require physical exertion. - Maintain current hypertensive medication regimen as prescribed. - Continue with Vitamin D and B12 supplementation. - Return for follow-up in June to assess hernia status.
--- OUTSIDE RECORDS SUMMARY | 2025-03-20 12:37 | XMS_ITS | Clinical Summary ---
Author Organization [facility] Address [address] [place] [address] [address] [place] [address] Care Team Providers Care Forestry Crew Chief Name Role Phone Unavailable Primary Care Provider [...] Type Department Care Team Description 02/12/2025 Telephone [facility] AD[facility] [address] [place] [address] Mila Watt from Last 3 Months Social [...] 2) 11/06/2022 09/11/2022 COVID-19 Vaccine (3 - 2023- season) 2024 10/30/2021, 10/09/2021 Dental Oral Exam 03/07/2025 09/05/2024 Dental Prophylaxis 03/07/2025 09/05/2024 DTaP/Tdap/Td Vaccines (3 - Td or Tdap) 03/27/2025 03/27/2015, 10/26/2008 Influenza Vaccine (#1) 2025 2, 07/07/2018, 06/10/2017, Additional history exists Tobacco Screening [...] Recently Relevant to Health Maintenance Insurance [facility]AL [facility]
--- OUTSIDE RECORDS SUMMARY | 2025-03-20 12:37 | XMS_ITS | Patient Health Record ---
Author Organization [facility] [place] Address [address] [place] [address] Care Team Providers Care Mold Polisher Name Role Phone Name Mac SHAHID Primary Care Provider Obie Portillo Unavailable [phone] Reason For Referral No Information Medications Medication [...] Status Risk Notes Problem Congenital pes planus (45227237) Flat Foot, Congenital (754.61) Active confirmed Problem Paronychia (01951660) Paronychia (681.11) Active confirmed Problem Tinea pedis (7365781) Tinea Pedis (110.4) Active confirmed Problem Abscess /Cellulitis (682.7) Active confirmed Problem Ingrowing nail (589319362) Ingrowing Nail (703.0) Active confirmed Plan Of Treatment Pending Test Test Name Order Date 25893- I&D ABSCESS-COMPLICATED,MULTI Insurance Providers Payer Name Payer Address Payer Phone Subscriber Number Group Number Insured Name Patient Relationship to Insured Coverage Start Date Coverage End Date [employer] [address] [place] [phone] [phone] [id number] Haile Cadena Self - patient is the insured Medical (General) History Medical History History ICD Code prostate conditions Surgical History Surgery Date(Month/Year) prostate surgery 2008
--- OUTSIDE RECORDS SUMMARY | 2025-03-20 12:37 | XMS_ITS | Clinical Summary ---
Author Organization [address] [facility] Address [address] [place] [address] Phone Care Team Providers Care Wet Finisher Name Role Phone Cleve Catherine MD Primary Care Provider [phone] Social History Tobacco Use Types Packs/Day Years [...] Influencers of Health Screening 08/22/2022 COVID-19 Vaccine ( - 2023-2 5 season) 2024 Influenza Vaccine (#1) 2025 8, 06/19/2016 RSV Immunization Adult Patients (1 - [...] 5 Years) and At-Risk Patients (6 to 49 Years) Aged Out No longer eligible b ased on patient's age to complete this topic RSV Immunization Patients Under 20 months Aged Out No longer eligible b ased on patient's age to complete this topic Varicella Vaccines Aged Out No longer eligible based on patient's age to complete this topic Insurance [place] [address] Care Teams Wet Finisher Relationship Specialty Start Date End Date Cleve Catherine MD [address] [place] [phone] PCP - General Internal Medicine 10/03/21
== END 2025-03-20 11:57 | disposition home or self-care (01) ==
PROVIDERS: PCP Internal Medicine; Visit Provider Internal Medicine
DX: K40.90 Unilateral inguinal hernia, without obstruction or gangrene, not specified as recurrent (principal); I10 Essential (primary) hypertension; E66.09 Other obesity due to excess calories; Z68.32 Body mass index [BMI] 32.0-32.9, adult; R73.01 Impaired fasting glucose; K76.0 Fatty (change of) liver, not elsewhere classified; K59.01 Slow transit constipation

== ENCOUNTER → 2025-03-20 11:33 | Outpatient (BNVA) | payer OTHER, SELFPAY | PROVIDERS: PCP Internal Medicine; Visit Provider Internal Medicine | DX: K40.90 Unilateral inguinal hernia, without obstruction or gangrene, not specified as recurrent (principal); I10 Essential (primary) hypertension; E66.09 Other obesity due to excess calories; R73.01 Impaired fasting glucose; K76.0 Fatty (change of) liver, not elsewhere classified; K59.01 Slow transit constipation; Z68.32 Body mass index [BMI] 32.0-32.9, adult | CPT/HCPCS: 99212 ==

== ENCOUNTER 2025-03-31 17:47 | Emergency (ER) | payer OTHER, SELFPAY ==
[2025-03-31 17:56] VITALS: BP 114/72; PULSE 60; RESP 16; TEMP 36.2; O2SAT 93; BMI 30.8
--- NOTE | 2025-03-31 17:59 | ED_ITS ---
HPI - General Adult General Chief complaint: Abdominal Pain Stated complaint: abd pain Time Seen by Provider: 03/31/25 18:26 Source: patient Mode of arrival: ambulatory Limitations: no limitations History of Present Illness ED Provider: Adolfo GONZALEZ HPI narrative: The patient is a 59-year-old male presenting to the ED reporting 1 week ago he was seen by his PCP, during the routine visit the patient reported experiencing right inguinal pain, patient was diagnosed with a non incarcerated right inguinal hernia however states there was no care plan developed. Patient reports since initial evaluation he has been experiencing intermittent pain in the right inguinal region without associated fever, nausea, vomiting, testicular pain, scrotal swelling, urethral discharge, or other acute somatic complaint. The patient has not taken any medications for his symptoms. Related Data Home Medications ?Medication ?Instructions ?Recorded ?Confirmed testosterone cypionate 200 mg/mL 400 mg IM Q3W 2 03/20/25 intramuscular oil Previous Rx's ?Medication ?Instructions ?Recorded blood pressure monitor (Blood #1 ea 10/23/22 Pressure Kit) cholecalciferol (vitamin D3) 50 50 mcg PO ONCE #90 tab s 06/20/24 mcg (2,000 unit) tablet cyanocobalamin (vitamin B-12) 1,000 mcg PO 2XW 90 days #26 tabs 06/20/24 1,000 mcg tablet sennosides 8.6 mg tablet (Natural 17.2 mg (2 x 8.6 mg) PO BEDTIME 12/06/24 Senna Laxative) constipation #60 tabs simethicone 125 mg capsule 125 mg PO BID-QID PRN abdom inal 12/06/24 distention #120 caps valsartan 40 mg tablet 80 mg (2 x 40 mg) PO DAILY # 180 01/01/25 tabs acetaminophen 500 mg capsule 1,000 mg (2 x 500 mg) PO .q8 PRN 03/31/25 fever or pain #30 caps ibuprofen 600 mg tablet 600 mg PO Q8H PRN fever or p ain 03/31/25 #30 tabs Allergies Allergy/AdvReac Type Severity Reaction Status Date / Time No Known Allergies Allergy Verified 03/31/25 17:57 Review of Systems 2 Review of Systems: Yes all other systems are reviewed and are negative PMFSH Past Medical History Medical History Colon cancer screening Epigastric pain Bone spur of ankle HTN (hypertension) Surgical History Hx of colonoscopy Family History Family History Other Bone spur of ankle Social History Social History Housing: House Patient Tobacco Use Status: Never used Tobacco e-Cigarette/Vaping Use: Never Used Advance Directives: No Advance Directives Information Provided: No Do you have a plan to hurt others: No Plan service: No Current occupational status: employed 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 Vital signs as documented. HEAD: Atraumatic, normocephalic. EYES: EOMs grossly intact, pupils equal, conjunctiva clear, no exudate. ENT: Nares patent, no discharge. Airway patent, no audible stridor, visible mucosa is pink and moist without noted lesions. NECK: Trachea is midline, no obvious masses or gross abnormalities. CHEST: Symmetric movement, normal appearance. LUNGS: LS present and CTAB, no w/r/r. Non-labored work of breathing. CARDIAC: Regular Rhythm, S1/S2 appreciated, no murmurs, rubs or gallops. ABDOMEN: Abdomen soft and non-tender x4 quadrants, no palpable masses or organomegaly. : A right inguinal hernia is palpated in the inguinal canal with forced cough, there is no induration, overlying skin color changes, irreducible mass, or other evidence of incarcerated hernia. No scrotal cellulitis, no testicular tenderness, no urethral discharge. EXTREMITIES: Normal tone, moves all extremities spontaneously without reported pain. No obvious acute injury or deformity noted. NEURO: Alert and oriented x3, CN II-XII appear grossly intact. Cerebellar Functioning grossly intact. No obvious sensory or motor deficits. Speech clear and appropriate. PSYCH: normal affect, appropriate eye contact, fluid speech, with appropriate response to questioning. No reported suicidality or homicidality. SKIN: Warm, dry, color appropriate, normal turgor. No rashes noted. Course Course Course Narrative: RME, this is a rapid medical exam performed by Shayne Mendoza please refer to primary provider for complete H&P- 59 year old male presents for evaluation of abdominal pain. He was recently diagnosed with an inguinal hernia. Plan for labs including lactic acid Medications Administered Discontinued Medications Generic Name Dose Route Start Last Admin Trade Name Martyq PRN Reason Stop Dose Admin Acetaminophen 975 mg 03/31/25 19:40 03/31/25 19:50 Acetaminophen 325 Mg Tablet PO 03/31/25 19:41 975 mg ONCE ONE Administration Ibuprofen 600 mg 03/31/25 19:40 03/31/25 19:50 Ibuprofen 600 Mg Tablet PO 03/31/25 19:41 600 mg ONCE ONE Administration Lidocaine 1 patch 03/31/25 19:40 03/31/25 19:50 Lidocaine 4 % Patch Adh..Patch TRANSDERMA 03/31/25 19:41 1 patch ONCE ONE Administration Protocol Medical Decision Making Medical Decision Making [facility] Narrative: 8:05 PM 03/31/2025 (Cristina GONZALEZ): Patient is a 59-year-old male presenting to the ED for evaluation of ongoing right inguinal pain after a diagnosis of right inguinal hernia 1 week ago by PCP. The patient denies associated vomiting, fever, or other acute somatic complaint. Exam shows no evidence of irreducible or strangulated hernia. Abdominal exam is nontender. Laboratory evaluation is markedly reassuring, normal lactic acid. No other acute findings. UA is negative for infection. Patient will be discharged with anti-inflammatories and surgical referral, patient has been educated on signs and symptoms of incarcerated hernia and reasons to return to the ED. Admission/Observation Consideration of admission/observation: Escalation of care including admission/observation considered Lab Data [facility] Lab Attestation statement: I reviewed the patient's lab results. 03/31/25 18:16 03/31/25 18:16 Labs: Lab Results 03/31/25 03/31/25 Range/Units 18:16 18:34 WBC 5.8 (4.8-10.8) X10*3/uL RBC 4.31 L (4.60-5.80) X10*6/uL Hgb 13.3 L (14.0-18.0) g/dl Hct 39.3 L (42.0-52.0) % MCV 91.2 (80.0-98.0) fL MCH 30.9 (27.0-33.0) pg MCHC 33.8 (31.0-36.0) g/dl RDW 13.4 (11.0-16.0) % Plt Count 211 (160-400) X10*3/uL MPV 9.5 (9.4-12.4) fL Immature Gran % (Auto) 0.2 (0.0-0.4) % Neut % (Auto) 62.4 (45-73) % Lymph % (Auto) 26.4 (20-40) % [place] % (Auto) 8.6 (2-11) % Eos % (Auto) 1.9 (0-4) % Baso % (Auto) 0.5 (0-2) % Lymph # (Auto) 1.5 (1.2-4.9) X10*3/uL [place] # (Auto) 0.5 (0.1-1.2) X10*3/uL Eos # (Auto) 0.1 (0.0-0.4) X10*3/uL Baso # (Auto) 0.0 (0.0-0.2) X10*3/uL Abs Immat Gran (auto) 0.01 (0.00-0.03) X10*3/uL Absolute Neuts (auto) 3.6 (2.0-8.3) x10*3/uL Absolute Nucleated RBC 0.000 (0.0-0.012) X10*3/uL Nucleated RBC % (auto) 0.0 (0.0-0.2) /100WBC Sodium 141 (135-145) mmol/L Potassium 4.1 (3.3-5.1) mmol/L Chloride 112 H (96-108) mmol/L Carbon Dioxide 23 (22-29) mmol/L Anion Gap 10 L (12-20) BUN 18 H (9-16) mg/dL Creatinine 1.00 (0.5-1.4) mg/dL Estim Creat Clear Calc 93.1 Estimated GFR > 60 Random Glucose 106 (60-115) mg/dL Lactic Acid 0.9 (0.5-2.0) mmol/L Calcium 9.1 D (8.4-10.2) mg/dL Total Bilirubin 0.5 (0.0-1.0) mg/dL AST 27 (5-37) U/L ALT 25 (0-40) U/L Alkaline Phosphatase 53 (39-117) U/L Total Protein 7.2 (6.5-8.0) g/dL Albumin 4.6 (3.5-5.0) g/dL Lipase 98 H (8-78) U/L Urine Color Yellow Urine Appearance Clear Urine pH 5.5 (5.0-9.0) Ur Specific [place] >= 1.030 H (1.005-1.025) Urine Protein Negative (Neg-Trace) mg/dL Urine Glucose (UA) Negative (Negative) mg/dL Urine Ketones Trace (Negative) mg/dL Urine Blood Negative (Negative) Urine Nitrite Negative (Negative) Ur Leukocyte Esterase Negative (Negative) Urine RBC 0-2 (0-2) /HPF Urine WBC 0-5 (0-5) /HPF Ur Squamous Epith Cells 0-2 (0-2) /HPF Urine Bacteria None Seen (None Seen) Hyaline Casts 0-2 (0-2) /LPF Tests considered The following testing was considered but not selected: Scrotal US; CT Abdomen Prescription Management I considered prescription management with: Pain Medication Discharge Plan Discharge Clinical Impression: Inguinal hernia, right Patient Disposition: Home, Self-Care Instructions: Inguinal Hernia (ED) Additional Instructions: Thank you for choosing [facility] Emergency Department for your care today. Your symptoms today are consistent with an inguinal hernia, thankfully however your exam and laboratory evaluation shows no concern for entrapped bowel, strangulation of blood flow to bowel, or other acute emergent complications of your inguinal hernia. At this time there is no evidence of an acute process requiring admission to the hospital or continued ED observation, and it is safe to discharge you home. Please follow up with your primary care provider for referral to a surgeon to discuss nonemergent surgical repair of your hernia to reduce your symptoms. You may take alternating (staggered) doses of ibuprofen 600mg and Tylenol 1000mg every 4 hours as needed for any additional pain. We have treated you with a lidocaine patch, if you find this provides you significant relief additional patches can be purchased at any local pharmacy without a prescription. Please follow up with your primary care physician for re-evaluation, surgical referral, additional management of your symptoms, and continued preventative care. If you do not have a primary care physician, please call the [facility] at [phone] to establish a new primary care physician. While waiting to establish your new primary care physician, you can call our Walk-in [facility] at [phone] for non-emergency needs. Please return to the emergency department if you develop a severe or sudden change in your symptoms, a fever over 100.4 that does not improve with Tylenol or Ibuprofen, recurrent vomiting, or any other new or worsening symptoms or concerns. Prescriptions: New acetaminophen 500 mg capsule 1,000 mg PO .q8 PRN (Reason: fever or pain) Qty: 30 0RF ibuprofen 600 mg tablet 600 mg PO Q8H PRN (Reason: fever or pain) Qty: 30 0RF No Action (DME) blood pressure monitor [Blood Pressure Kit] Kit See Rx Instructions .Route Qty: 1 0RF Rx Instructions: Use to check blood pressure daily cyanocobalamin (vitamin B-12) 1,000 mcg tablet 1,000 mcg PO 2XW 90 Days Qty: 26 3RF cholecalciferol (vitamin D3) 50 mcg (2,000 unit) tablet 50 mcg PO ONCE Qty: 90 1RF valsartan 40 mg tablet 80 mg PO DAILY Qty: 180 0RF testosterone cypionate 200 mg/mL oil 400 mg IM Q3W sennosides [Natural Senna Laxative] 8.6 mg tablet 17.2 mg PO BEDTIME Qty: 60 3RF simethicone 125 mg capsule 125 mg PO BID-QID PRN (Reason: abdominal distention) Qty: 120 3RF Referrals: Cleve Catherine MD [Primary Care Provider, Internal Medicine] Clinical Impression: Inguinal hernia, right Sean Rader MD [Physician, General Surgery] Clinical Impression: Inguinal hernia, right Print Language: Gabonese
[2025-03-31 18:26] LABS: MANUAL DIFF FLAG NO
[2025-03-31 18:30] LABS: Hematocrit 39.3 % (42.0-52.0); Hemoglobin 13.3 g/dl (14.0-18.0); Imm Gran Abs Auto 0.01 X10*3/uL (0.00-0.03); Imm Gran Pct Auto 0.2 % (0.0-0.4); Lymphocytes Absolute Auto 1.5 X10*3/uL (1.2-4.9); Mean Corpuscular HGB Conc 33.8 g/dl (31.0-36.0); Mean Corpuscular Hemoglobin 30.9 pg (27.0-33.0); Mean Corpuscular Volume 91.2 fL (80.0-98.0); NRBC Abs Auto 0.000 X10*3/uL (0.0-0.012); NRBC Pct Auto 0.0 /100WBC (0.0-0.2); Platelet Count 211 X10*3/uL (160-400); Red Blood Count 4.31 X10*6/uL (4.60-5.80); White Blood Count 5.8 X10*3/uL (4.8-10.8)
[2025-03-31 18:34] VITALS: BP 114/81; PULSE 65; RESP 20; TEMP 36.4; O2SAT 97
[2025-03-31 18:42] LABS: Appearance Urine Clear; Glucose Urine UA Negative (Negative); PH 5.5 (5.0-9.0); Specific Gravity - Urine >= 1.030 (1.005-1.025)
[2025-03-31 18:43] LABS: Alanine Aminotransferase 25 U/L (0-40); Albumin Level 4.6 g/dL (3.5-5.0); Alkaline Phosphatase 53 U/L (39-117); Anion Gap 10 (12-20); Aspartate Amino Transferase 27 U/L (5-37); Blood Urea Nitrogen 18 mg/dL (9-16); Calcium 9.1 mg/dL (8.4-10.2); Carbon Dioxide 23 mmol/L (22-29); Chloride 112 mmol/L (96-108); Creatinine Clr Calc Pharmacy 93.1; Estimated Glomerular Filt Rate > 60; Lipase 98 U/L (8-78); Potassium 4.1 mmol/L (3.3-5.1); Sodium 141 mmol/L (135-145); Total Protein 7.2 g/dL (6.5-8.0)
--- OUTSIDE RECORDS SUMMARY | 2025-03-31 19:05 | XMS_ITS | Patient Health Record ---
Author Organization [facility] [place] Address [address] [place] [address] Care Team Providers Care Wildlife And Game Protector Name Role Phone Name Mac SHAHID Primary Care Provider Obie Portillo Unavailable [phone] Reason For Referral No Information Medications Medication [...] Status Risk Notes Problem Congenital pes planus (90690274) Flat Foot, Congenital (754.61) Active confirmed Problem Paronychia (14801756) Paronychia (681.11) Active confirmed Problem Tinea pedis (9448773) Tinea Pedis (110.4) Active confirmed Problem Abscess /Cellulitis (682.7) Active confirmed Problem Ingrowing nail (028322128) Ingrowing Nail (703.0) Active confirmed Plan Of Treatment Pending Test Test Name Order Date 61492- I&D ABSCESS-COMPLICATED,MULTI Insurance Providers Payer Name Payer Address Payer Phone Subscriber Number Group Number Insured Name Patient Relationship to Insured Coverage Start Date Coverage End Date [employer] [address] [place] [address] [phone] [id number] Haile Cadena Self - patient is the insured Medical (General) History Medical History History ICD Code prostate conditions Surgical History Surgery Date(Month/Year) prostate surgery 2008
--- OUTSIDE RECORDS SUMMARY | 2025-03-31 19:05 | XMS_ITS | Clinical Summary ---
Author Organization [employer] Address [address] [place] [address] 7 [place] [address] Care Team Providers Care Marine Diesel Mechanic Name Role Phone Unavailable Primary Care Provider [...] Type Department Care Team Description 02/12/2025 Telephone [facility] ADULT DENTAL [address] [place] [address] Mila Watt from Last 3 Months Social [...] Recently Relevant to Health Maintenance Insurance DENTAL [facility]
--- OUTSIDE RECORDS SUMMARY | 2025-03-31 19:05 | XMS_ITS | Clinical Summary ---
Author Organization [address] [facility] Address [address] [place] [address] Phone Care Team Providers Care Bull Bucker Name Role Phone Cleve Catherine MD Primary Care Provider [phone] Social History Tobacco Use Types Packs/Day Years [...] Panel) 08/22/2022 Colorectal Cancer Screening: Colonoscopy 08/22/2022 HIV Screening 08/22/2022 Hepatitis C Screening 08/22/2022 Social Influencers of Health Screening 08/22/2022 COVID-19 Vaccine (1 - 2023-2 5 season) 2024 Depression Screening 09/13/2024 Influenza Vaccine (#1) 2025 8, 06/19/2016 RSV [...] patient's age to complete this topic Insurance [facility] PL[facility] Care Teams Bull Bucker Relationship Specialty Start Date End Date Cleve Catherine MD [address] [place] [address] PCP - General Internal Medicine 10/03/21
[2025-03-31] MEDS: Lidocaine 4 % Patch ADH..PATCH 1 PATCH TRANSDERMA (19:50)
[2025-03-31 19:53] VITALS: BP 112/73; PULSE 50; RESP 15; TEMP 36.8; O2SAT 98
[2025-03-31 20:09] VITALS: BP 112/73; PULSE 50; RESP 15; TEMP 36.8; O2SAT 98
== END 2025-03-31 20:10 | disposition home or self-care (01) ==
PROVIDERS: Physician Assistant; Emergency Provider Emergency Medicine; PCP Internal Medicine
DX: K40.90 Unilateral inguinal hernia, without obstruction or gangrene, not specified as recurrent (principal); R10.9 Unspecified abdominal pain
CPT/HCPCS: 36415; 80053; 81001; 83605; 83690; 85025; 99283

== ENCOUNTER 2025-04-16 14:36 | Outpatient (AMB) | payer OTHER, SELFPAY ==
--- NOTE | 2025-04-16 14:39 | A.OFFVIS_ITS ---
Vital Signs 04/16/25 14:47 Height 5 ft 9 in Weight 193 lb BMI 28.5 BP 120/80 Blood Pressure Location Rt brachial Position Sitting Pulse 58 Intake Visit Reasons: Inguinal hernia Intake Note: Patient referred by pcp Dr. Poon for assessment of Unilateral inguinal hernia. Patient c/o: rt inguinal pain. Denies nausea, vomiting, constipation, diarrhea. Planning Management It Specialist Required: No Accompanied by: Self / Same As Patient Allergies No Known Allergies Allergy (Verified 04/16/25 14:45) Medication List - Last Reconciled 04/16/25 by Uriah Oshea MD acetaminophen 1,000 mg (2 x 500 mg) PO .q8 PRN blood pressure monitor (Blood Pressure Kit) Use to check blood pressure daily cholecalciferol (vitamin D3) 50 mcg PO ONCE cyanocobalamin (vitamin B-12) 1,000 mcg PO 2XW 90 days ibuprofen 600 mg PO Q8H PRN sennosides (Natural Senna Laxative) 17.2 mg (2 x 8.6 mg) PO BEDTIME simethicone 125 mg PO BID-QID PRN testosterone cypionate 400 mg IM Q3W valsartan 80 mg (2 x 40 mg) PO DAILY HPI HPI Inguinal hernia: Details: 59-year-old male referred for right inguinal hernia. He has been having sharp pains his right groin for about 2-3 months now. He had seen his primary care physician before and was diagnosed to have a right inguinal hernia and was referred to us. He said he had to go to the emergency room some time 3 weeks ago because of an episode of pain and again he was diagnosed to have a right inguinal hernia He says that he continues to have periodic pain on the right groin and he feels that this may be worsening already. He says that he would notice the lump on his right groin periodically which would be worse occasionally when he is exertion. He says that the mass would pop out and would reduce itself most of the time. He denies GI complaints. He does admit to chronic cough and this may be contributory to his right inguinal hernia. 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 Cognitive needs: No Hearing needs: No Vision needs: No Review of Systems Const Denies chills and Denies fever(s) Card Denies chest pain, Denies dyspnea and Denies dyspnea on exertion Resp Denies cough, Denies dyspnea and Denies dyspnea on exertion GI Denies hematochezia and Denies change in bowel habits Denies hematuria and Denies difficulty urinating Musc Denies back pain and Denies limited range of motion Neuro Denies focal weakness and Denies convulsions Psych Denies depression and Denies mood swings Physical Exam Vital Signs: Last Vital Signs Pulse 58 04/16/25 14:47 BP 120/80 04/16/25 14:47 BMI result Body Mass Index 28.5 Const General: comfortable and no acute distress Orientation/consciousness: patient oriented x3 Neck Neck: Yes no lymphadenopathy Resp Auscultation: clear to auscultation bilaterally Cardio Rhythm: regular rhythm GI Other: Right inguinal hernia, felt with Valsalva, with some tenderness Palpation (GI): Soft to palpation, nontender and no guarding Neuro General: patient oriented x3 Assessment & Plan Assessment & Plan (1) Reducible right inguinal hernia: Code(s): K40.90 - Unilateral inguinal hernia, without obstruction or gangrene, not specified as recurrent Category: Medical Plan: He has a reducible mass in the right groin with pain tenderness consistent with a right inguinal hernia. This is reducible He wants to proceed with repair. I had a long discussion with him about the technique of repair with mesh placement. I reviewed the risks including but not limited to bleeding, infections, injury to the vas deferens or bowel, recurrence, postop pain, as well as the benefits and alternatives. I explained to him what to expect postoperatively. He wants to proceed. 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 He seems to have a good understanding of the plan as above. Coding Level of Care Code New Pt Level 3 (78698) Diagnoses Reducible right inguinal hernia K40.90
--- OUTSIDE RECORDS SUMMARY | 2025-04-16 14:39 | XMS_ITS | Clinical Summary ---
Author Organization [employer] Address [address] [place] [address] [address] [place] [address] Care Team Providers Care Analytics Intern Name Role Phone Unavailable Primary Care Provider [...] Type Department Care Team Description 02/12/2025 Telephone [facility] ADULT DENTAL [address] [place] [address] Mila Watt from Last 3 Months Social [...] Recently Relevant to Health Maintenance Insurance DENTAL [facility]
--- OUTSIDE RECORDS SUMMARY | 2025-04-16 14:39 | XMS_ITS | Patient Health Record ---
Author Organization [facility] [place] Address [address] [place] [address] Care Team Providers Care Blood Bank Custodian Name Role Phone Name Mac SHAHID Primary Care Provider Obie Portillo Unavailable [phone] Reason For Referral No Information Medications Medication [...] Status Risk Notes Problem Congenital pes planus (02840377) Flat Foot, Congenital (754.61) Active confirmed Problem Paronychia (11027922) Paronychia (681.11) Active confirmed Problem Tinea pedis (5699003) Tinea Pedis (110.4) Active confirmed Problem Abscess /Cellulitis (682.7) Active confirmed Problem Ingrowing nail (722741795) Ingrowing Nail (703.0) Active confirmed Plan Of Treatment Pending Test Test Name Order Date 68304- I&D ABSCESS-COMPLICATED,MULTI Insurance Providers Payer Name Payer Address Payer Phone Subscriber Number Group Number Insured Name Patient Relationship to Insured Coverage Start Date Coverage End Date [employer] [address] [place] [phone] [phone] [id number] Haile Cadena Self - patient is the insured Medical (General) History Medical History History ICD Code prostate conditions Surgical History Surgery Date(Month/Year) prostate surgery 2008
--- OUTSIDE RECORDS SUMMARY | 2025-04-16 14:39 | XMS_ITS | Clinical Summary ---
Author Organization [facility] Address [address] [place] [address] Phone Care Team Providers Care Group Leader Semiconductor Processing Name Role Phone Cleve Catherine MD Primary Care Provider [phone] Social History Tobacco Use Types Packs/Day Years [...] patient's age to complete this topic Insurance [facility] PL[facility] Care Teams Group Leader Semiconductor Processing Relationship Specialty Start Date End Date Cleve Catherine MD [address] [place] [address] PCP - General Internal Medicine 10/03/21
[2025-04-16 14:47] VITALS: BP 120/80; PULSE 58; BMI 28.5
== END 2025-04-16 15:00 | disposition home or self-care (01) ==
LOC: HO.HGS 14:37
PROVIDERS: PCP Internal Medicine; Visit Provider Surgery
DX: K40.90 Unilateral inguinal hernia, without obstruction or gangrene, not specified as recurrent (principal)
CPT/HCPCS: 99203

== ENCOUNTER → 2025-04-16 14:36 | Outpatient (BNVA) | payer OTHER, SELFPAY | PROVIDERS: PCP Internal Medicine; Visit Provider Surgery | DX: Z01.818 Encounter for other preprocedural examination (principal); K40.90 Unilateral inguinal hernia, without obstruction or gangrene, not specified as recurrent | CPT/HCPCS: 99202 ==

== ENCOUNTER 2025-05-04 09:04 | Day surgery (SDC) | payer OTHER, SELFPAY ==
--- OUTSIDE RECORDS SUMMARY | 2025-04-19 07:11 | XMS_ITS | Clinical Summary ---
Author Organization [facility] [employer] [facility] Address [address] [place] [address] [address] [place] [address] Care Team Providers Care Report Analyst Name Role Phone Unavailable Primary Care Provider [...] Type Department Care Team Description 02/12/2025 Telephone [facility] ADULT D[facility]AL [address] [place] [address] Mila Watt from Last 3 Months Social [...] Recently Relevant to Health Maintenance Insurance DENTAL [facility]
--- OUTSIDE RECORDS SUMMARY | 2025-04-19 07:11 | XMS_ITS | Patient Health Record ---
Author Organization [facility] [place] Address [address] [place] [address] Care Team Providers Care Viscosity Tester Name Role Phone Name Mac SHHAID Primary Care Provider Obie Portillo Unavailable [phone] Reason For Referral No Information Medications Medication [...] Status Risk Notes Problem Congenital pes planus (73880466) Flat Foot, Congenital (754.61) Active confirmed Problem Paronychia (21975492) Paronychia (681.11) Active confirmed Problem Tinea pedis (6054228) Tinea Pedis (110.4) Active confirmed Problem Abscess /Cellulitis (682.7) Active confirmed Problem Ingrowing nail (087738533) Ingrowing Nail (703.0) Active confirmed Plan Of Treatment Pending Test Test Name Order Date 29241- I&D ABSCESS-COMPLICATED,MULTI Insurance Providers Payer Name Payer Address Payer Phone Subscriber Number Group Number Insured Name Patient Relationship to Insured Coverage Start Date Coverage End Date [employer] [address] [place] [address] [id number] Haile Cadena Self - patient is the insured Medical (General) History Medical History History ICD Code prostate conditions Surgical History Surgery Date(Month/Year) prostate surgery 2008
[2025-04-23 15:31] VITALS: BMI 28.5
[2025-05-04] VITALS (8 sets, daily range): BP systolic 112–121; BP diastolic 68–82; PULSE 45–56; RESP 16–18; TEMP 36.1–36.3; O2SAT 96–100
--- NOTE | 2025-05-04 09:35 | HO.ANESPROP2 ---
Documented by User: Tejal Nunez NP 05/02/25 13:46 HPI - Anesthesia Eval Consult details Narrative: 59yo M for Right Repair Hernia Inguinal Reducible with mesh PMFSH Active Problems Active Problems: All Active Problems Inguinal hernia, right (Acute) Constipation by delayed colonic transit (Acute) Fatty liver (Acute) Excessive gas (Acute) Acute upper respiratory infection (Acute) Recurrent headache (Acute) Varicose veins of both lower extremities with inflammation (Acute) Right bundle branch block (Acute) Abnormal EKG (Acute) Upper abdominal pain (Acute) Swelling of both ankles (Acute) Frequent bowel movements (Acute) Weakness (Acute) Bloating (Acute) Environmental allergies (Acute) Hemorrhoids (Acute) Upper respiratory tract infection (Acute) Chest tightness (Acute) Rotator cuff tendonitis (Acute) Fatigue (Acute) B12 deficiency (Acute) Strain of tendon of right rotator cuff (Acute) Foreign body of finger of right hand (Acute) Bleeding hemorrhoids (Acute) Hypertension, essential, benign (Acute) Pain of right thumb (Acute) Foreign body (FB) in soft tissue (Acute) Elevated blood pressure reading (Acute) Obesity due to excess calories (Acute) Vitamin D deficiency (Acute) Impaired fasting blood sugar (Acute) Encounter for general adult medical examination with abnormal findings (Acute) Reducible right inguinal hernia (Acute) Past Medical History Medical History (Updated 04/23/25 @ 13:11 by Priscilla Rowe RN) RBBB (right bundle branch block) Fatty liver Reducible right inguinal hernia Epigastric pain HTN (hypertension) Family History Family History Other Bone spur of ankle Surgical History Surgical History (Updated 04/23/25 @ 13:10 by Priscilla Rowe RN) History of ankle surgery Hx of colonoscopy Social History Social History Housing: House Are you a primary insurance healthcare consultant to a significant other at home: No Do you presently have visiting nurse or other home services: No Patient Tobacco Use Status: Never used Tobacco e-Cigarette/Vaping Use: Never Used Use of substances other than those prescribed or required for medical reasons: No Have you been hit, kicked, punched, or otherwise hurt by someone within the past year? 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 [employer] RBBB Exercise Stress 2023 Protocol: JOSE MIGUEL Max HR: 164 BPM 101% of Pred: 162 BPM Max BP: 174/074 mmHG Max Work Load: 9.4 METS Exercise stress test with exercise 7 min 34 sec of Jose Miguel protocol, achieving 101% MPHR, without anginal symptoms, without arrythmia, with normotensive response to exercise, without EKG changes meeting criteria for ischemia. Test reviewed with Dr Rogers Echo 2023 Conclusions: - The left ventricular systolic function is normal. The calculated ejection fraction is 55% by biplane method. - No obvious valvular pathology seen on this study. Assessment and Plan Assessment Anesthesia Assessment: Chart Reviewed Documented by User: Jazmyn Eastman DO 05/04/25 09:37 PMFSH Past Medical History Medical History (Updated 04/23/25 @ 13:11 by Priscilla Rowe RN) RBBB (right bundle branch block) Fatty liver Reducible right inguinal hernia Epigastric pain HTN (hypertension) Family History Family History Other Bone spur of ankle Family history of problems with anesthesia: No Surgical History Surgical History (Updated 04/23/25 @ 13:10 by Priscilla Rowe RN) History of ankle surgery Hx of colonoscopy History of Problems with Anesthesia: No Social History Social History Housing: House Are you a primary insurance healthcare consultant to a significant other at home: No Do you presently have visiting nurse or other home services: No Patient Tobacco Use Status: Never used Tobacco e-Cigarette/Vaping Use: Never Used Use of substances other than those prescribed or required for medical reasons: No Have you been hit, kicked, punched, or otherwise hurt by someone within the past year? 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 Cognitive needs: No Hearing needs: No Vision needs: No Meds Allergies Allergy/AdvReac Type Severity Reaction Status Date / Time No Known Allergies Allergy Verified 04/16/25 14:45 Exam Exam Date and Time: 05/04/25 0935 Height,Weight and Vital Signs: Height 5 ft 9 in Weight 87.543 kg Vital Signs Temperature 97.3 F 05/04/25 09:28 Pulse Rate 51 05/04/25 09:28 Respiratory Rate 16 05/04/25 09:28 Blood Pressure 118/76 05/04/25 09:28 Pulse Oximetry 99 05/04/25 09:28 Oxygen Delivery Method Room Air 05/04/25 09:28 Temperature 97.3 F 05/04/25 09:28 Pulse Rate 51 05/04/25 09:28 Respiratory Rate 16 05/04/25 09:28 Blood Pressure 118/76 05/04/25 09:28 Pulse Oximetry 99 05/04/25 09:28 Oxygen Delivery Method Room Air 05/04/25 09:28 Airway Mallampati Class: II TM Dist: >3cm Neck ROM: Full Loose/Missing/Broken Teeth: No (patient denies any loose or broken teeth) Heart: S1S2 Lungs: CTAB Assessment and Plan Assessment Anesthesia Assessment: Anesthesia Plan Discussed and Chart Reviewed Final Anesthetic Review Family History of Problems with Anesthesia: No History of Problems with Anesthesia: No NPO: Yes ASA Class: II Final Preanesthetic Review: No Changes in Pt Med Stat, Meds/Allgs Chart Reviewed, Consent Obtained/Reviewed and Anes Risks/Benef Reviewed Patient Risk: Low Procedure Risk: Low Anesthetic Plan Anesthetic Plan: GA and Agree w/ Assess. and Plan Disposition: Standard PACU
[2025-05-04] MEDS: Lactated Ringers 1,000 ML 100 ML IVCONT (09:44)
--- NOTE | 2025-05-04 09:45 | MHC.SHP ---
Pre-Procedural Eval Section A - 24 Hr Update-Section A only Date of Service: 05/04/25 The patient is an INPATIENT: No Changes since office visit: No Cold of Flu in the past 2 weeks, No New Medical Problems, No Changes in Medication and No Patient answered all questions The patient has been examined within 24 hours of the surgical procedure. The History & Physical has been completed within 30 days and I have reviewed it.: Yes Section B - Complete if H&P > 30 days Chief Complaint: Unilateral inguinal hernia, without obstruction Allergies: Allergies Allergy/AdvReac Type Severity Reaction Status Date / Time No Known Allergies Allergy Verified 04/16/25 14:45 Plan I have reviewed the history and physical and performed a pertinent physical examination on my patient. No changes have occurred unless specified. Time Spent With Patient Time: Total time managing care of this patient today ____ minutes.
--- NOTE | 2025-05-04 10:45 | W.PM.OPN ---
Operative Note Operative Note Date of Service: 05/04/25 Narrative: Preop diagnosis: Right inguinal hernia, reducible Postop diagnosis: Right inguinal hernia, reducible, indirect Procedure: Repair of right inguinal hernia with mesh Surgeon: Uriah Oshea MD automobile mechanic assistant: LISA Persaud The patient is a 59-year-old male with note of reducible right inguinal hernia. He understood the technique of the planned procedure as was the risks, benefits, and alternatives. He was brought to the operating room. He was placed supine under general anesthesia via laryngeal mask airway. The right groin was prepped and draped in the usual sterile fashion. A surgical time-out was done. The patient received cefazolin 2 g IV preoperatively I infiltrated the planned line of incision with lidocaine 1%. I made a short incision with a blade 15 along an imaginary line from the anterior superior iliac spine to the pubic ramus. This was carried down with electrocautery through the full-thickness of the skin and subcutaneous fat down to the fascia. The external oblique aponeurosis was visualized and was bluntly dissected to define this. The external ring was seen. I made a short incision on the external oblique aponeurosis with a blade 15. This extended inferomedially to connect with the external ring. I applied hemostasis on the divided edges of the aponeurosis. I did blunt dissection with a finger on the underside of the aponeurosis to create a pocket for the mesh. I then proceeded to gently dissect the spermatic cord and its contents with the index finger until was able to pass a Bowdon drain around this. The Janny drain was used for retraction. A fat containing hernia was seen on the anteromedial aspect. I dissected this off of the rest of the cord contents. The vas deferens was visualized along with the vessels and these were protected during the dissection. I continued to separate the fat containing hernia from the cord contents until was able to completely reduce this through the internal ring. The internal ring was reinforced with the medium-sized Prolene plug. The plug was secured with Prolene 2 sutures to the shelving edge of the inguinal meant laterally and the internal oblique superiorly and medially. I reinforced the floor of the canal with a keyhole mesh. The tails of the mesh were passed around the cord at the level of the internal ring. This were secured together with Prolene 2-0 sutures I flattened the mesh floor of the canal. I secured the mesh with Prolene 2 sutures to the shelving edge of the inguinal meant laterally, the internal oblique medially and superiorly, as well as the pubic ramus inferomedially I observed for hemostasis. Once hemostasis was confirmed, I irrigated. I removed the Janny drain. I closed the external oblique aponeurosis with Polysorb 2-0 sutures to re-create the external ring. The subcutaneous layer was reapposed with Polysorb 3-0 simple interrupted sutures. Skin closure was achieved with Polysorb 4-0 subcuticular running stitch The area was infiltrated with Marcaine 0.5% for postop analgesia. Dressings were applied the procedure was completed The patient tolerated procedure well. There were no immediate complications. Initial and final counts of sponges and instruments were correct. Estimated blood loss was less than 20 cc. The patient was extubated without difficulty and transferred to the recovery room with stable vital signs.
== END 2025-05-04 11:52 | disposition home or self-care (01) ==
PROVIDERS: PCP Internal Medicine; Visit Provider Surgery
PROC: (CPT 49505; principal; 2025-05-04 11:40)
DX: K40.90 Unilateral inguinal hernia, without obstruction or gangrene, not specified as recurrent (principal); I10 Essential (primary) hypertension; R05.3 Chronic cough; K76.0 Fatty (change of) liver, not elsewhere classified; I45.10 Unspecified right bundle-branch block; Z79.1 Long term (current) use of non-steroidal anti-inflammatories (NSAID); Z79.899 Other long term (current) drug therapy
CPT/HCPCS: 49505; C1781; J0690; J2003; J2704; J2795; J3010

== ENCOUNTER → 2025-05-04 09:04 | Outpatient (BNV) | payer OTHER, SELFPAY | PROVIDERS: PCP Internal Medicine; Visit Provider Surgery | DX: K40.90 Unilateral inguinal hernia, without obstruction or gangrene, not specified as recurrent (principal) | CPT/HCPCS: 49505 ==

== ENCOUNTER 2025-05-17 14:42 | Outpatient (AMB) | payer SELFPAY ==
--- NOTE | 2025-05-17 14:44 | MHC.OFFVIS ---
Vital Signs 05/17/25 14:48 Weight 195 lb BP 102/72 Blood Pressure Location Rt brachial Position Sitting Pulse 81 Intake Visit Reasons: S/P RIH w/mesh Intake Note: Patient here s/p repair of right inguinal hernia with mesh. Patient c/o: no concerns. Reports incisions healing well. Only took rx pain meds the first couple of days. Surgery: 05-04-2025 Softball Coach Required: No Accompanied by: Self / Same As Patient Allergies No Known Allergies Allergy (Verified 05/17/25 14:49) HPI HPI S/P RIH w/mesh: Details: He underwent repair of a right inguinal hernia with mesh last 05/04/2025. He tolerated procedure well and currently denies significant complaints. [facility] Medical History RBBB (right bundle branch block) Fatty liver Reducible right inguinal hernia Epigastric pain HTN (hypertension) Surgical History H/O right inguinal hernia repair (05/04/25) History of ankle surgery Hx of colonoscopy Family History Other Bone spur of ankle Social History Housing: House Are you a primary transitions rn care coordinator to a significant other at home: No Do you presently have visiting nurse or other home services: No Patient Tobacco Use Status: Never used Tobacco e-Cigarette/Vaping Use: Never Used service: No Current occupational status: employed 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 He is doing very well. The repair site is intact. The incision is well healed I advised him to avoid lifting anything more than 20 lb for at least 2-3 more weeks. He can otherwise follow up on a p.r.n. basis. Coding Level of Care Code Global (30202) Diagnoses Inguinal hernia, right K40.90
[2025-05-17 14:48] VITALS: BP 102/72; PULSE 81
--- OUTSIDE RECORDS SUMMARY | 2025-05-17 15:54 | XMS_ITS | Clinical Summary ---
Author Organization [employer] Address [address] [place] [address] [address] [place] [address] Care Team Providers Care Memorial Designer Name Role Phone Unavailable Primary Care [...] Zoster Vaccines (2 of 2) 11/06/2022 09/11/2022 Dental Oral Exam 03/07/2025 09/05/2024 Dental Prophylaxis 03/07/2025 09/05/2024 DTaP/Tdap/Td Vaccines (3 - Td or Tdap) 03/27/2025 03/27/2015, 10/26/2008 COVID-19 Vaccine (3 - 2024- season) 2025 10/30/2021, 10/09/2021 Influenza Vaccine (#1) 2025 , 07/07/2018, 06/10/2017, Additional history exists Tobacco Screening [...] Most Recently Relevant to Health Maintenance [place] [address] [address] [place] [address]
--- OUTSIDE RECORDS SUMMARY | 2025-05-17 15:54 | XMS_ITS | Clinical Summary ---
Author Organization [facility] Address [address] [place] [address] Phone Care Team Providers Care Reimbursement Counselor Name Role Phone Cleve Catherine MD Primary Care Provider [phone] Social History Tobacco Use Types Packs/Day Years [...] 08/22/2022 Social Influencers of Health Screening 08/22/2022 Depression Screening 09/13/2024 COVID-19 Vaccine ( - 2023-2 5 season) 2025 Influenza Vaccine (#1) 2025 8, 06/19/2016 RSV [...] patient's age to complete this topic Insurance [facility] PL[facility] Care Teams Reimbursement Counselor Relationship Specialty Start Date End Date Cleve Catherine MD [address] [place] [address] PCP - General Internal Medicine 10/03/21
--- OUTSIDE RECORDS SUMMARY | 2025-05-17 15:54 | XMS_ITS | Patient Health Record ---
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) Active confirmed Problem Paronychia (58662153) Paronychia (681.11) Active confirmed Problem Tinea pedis (2899169) Tinea Pedis (110.4) Active confirmed Problem Abscess /Cellulitis (682.7) Active confirmed Problem Ingrowing nail (613839096) Ingrowing Nail (703.0) Active confirmed Plan Of Treatment Pending Test Test Name Order Date 39212- I&D ABSCESS-COMPLICATED,MULTI Insurance Providers Payer Name Payer Address Payer Phone Subscriber Number Group Number Insured Name Patient Relationship to Insured Coverage Start Date Coverage End Date [employer] [address] [place] [address] [id number] Haile Cadena Self - patient is the insured Medical (General) History Medical History History ICD Code prostate conditions Surgical History Surgery Date(Month/Year) prostate surgery 2008
--- OUTSIDE RECORDS SUMMARY | 2025-05-17 15:55 | XMS_ITS | Encounter Summary ---
Author Organization [facility] Address [address] [place] [address] Care Team Providers Care Stone Rubber Name Role Phone Cleve Catherine MD Primary Care Provider [phone] Encounter Details Date Type Department Care Team (Late st Contact Info) Description 2024 Lab Requisition [facility] - Main Lab [address] [place] [address] Brittney Leahy PA [address] [place] [address] Testicular hypofunction Social History Tobacco Use Types [...] AM EDT) WBC 5.8 4.8 - 10.8 K/[facility] LAB HEMETOLOGY METHOD 2024 1:[address] [facility] RBC 4.70 4.50 - 5.50 M/[facility] LAB HEMETOLOGY METHOD 2024 1:[address] [facility] Hemoglobin 14.8 13.5 - 17.5 g/dL [facility]24 [facility] Hematocrit 44.0 42.0 - 54.0 % LAB HEMETOLOGY METHOD 2024 1:09 PM [facility] MCV 92.8 79.0 - 98.0 FL LAB HEMETOLOGY METHOD 2024 1:09 PM [facility] MCH 31.2 27.0 - 32.0 pcg LAB HEMETOLOGY METHOD 2024 1:09 PM [facility] MCHC 33.6 32.0 - 37.0 g/dL LAB HEMETOLOGY METHOD 2024 1:09 PM [facility] RDW 12.7 11.0 - 15.0 % LAB HEMETOLOGY METHOD 2024 1:09 PM [facility] Platelets 253 130 - 400 K/mcL LAB HEMETOLOGY METHOD 2024 1:09 PM [facility] MPV 9.9 7.0 - 11.0 FL LAB HEMETOLOGY METHOD 2024 1:09 PM [facility] NRBC 0.0 <1.0 % LAB HEMETOLOGY METHOD 2024 1:09 PM [facility] NRBC Absolute 0.00 <0.10 K/mcL LAB HEMETOLOGY METHOD 2024 1:09 PM [facility] Neutrophils Relative 56.1 % LAB HEMETOLOGY METHOD 2024 1:09 PM [facility] Lymphocytes Relative 31.7 % LAB HEMETOLOGY METHOD 2024 1:09 PM [facility] Monocytes Relative 9.1 % LAB HEMETOLOGY METHOD 2024 1:[address] [facility] Eosinophils Relative 1.9 % LAB HEMETOLOGY METHOD 2024 1:[address] [facility] Basophils Relative 0.9 % [facility] Immature Granulocytes Relative 0.3 % LAB HEMETOLOGY METHOD 2024 1:[address] [facility] Neutrophils Absolute 3.26 1.50 - 7.00 K/mcL LAB HEMETOLOGY METHOD 2024 1:[address] [facility] Lymphocytes Absolute 1.84 1.00 - 5.00 K/mcL LAB [facility]EMETOLOGY METHOD [facility]24 1:[facility] Monocytes Absolute 0.53 0.20 - 1.00 K/mcL LAB HEMETOLOGY METHOD 2024 1:[address] [facility] Eosinophils Absolute 0.11 0.00 - 0.50 K/mcL LAB HEMETOLOGY METHOD 2024 1:[address] [facility] Basophils Absolute 0.05 0.00 - 0.20 K/mcL LAB HEMETOLOGY METHOD 2024 1:09 PM [facility] Immature Granulocytes Absolute 0.02 0.00 - 0.03 K/mcL LAB HEMETOLOGY METHOD 2024 1:[address] [facility] Blood Venous blood specimen / Unknown 2024 10:42 AM EDT 2024 12:14 PM EDT us Brittney GONZALEZ LAB BLOOD ORDERABLES Final Res ult [facility] [address] [place] [address], documented in this encounter Visit Diagnoses Diagnosis Testicular hypofunction Other testicular hypofunction documented in this encounter Care Teams Stone Rubber Relationship Specialty Start Date End Date Cleve Catherine MD [address] [place] [address] PCP - General Internal Medicine 10/03/21 documented as of this encounter
== END 2025-05-17 15:04 | disposition home or self-care (01) ==
PROVIDERS: PCP Internal Medicine; Visit Provider Surgery
DX: K40.90 Unilateral inguinal hernia, without obstruction or gangrene, not specified as recurrent (principal)
CPT/HCPCS: 99024

== ENCOUNTER → 2025-05-17 14:42 | Outpatient (BNVA) | payer OTHER, SELFPAY | PROVIDERS: PCP Internal Medicine; Visit Provider Surgery | DX: K40.90 Unilateral inguinal hernia, without obstruction or gangrene, not specified as recurrent (principal); Z98.890 Other specified postprocedural states | CPT/HCPCS: 99212 ==

== ENCOUNTER 2025-05-29 08:49 | Outpatient (AMB) | payer OTHER, SELFPAY ==
--- OUTSIDE RECORDS SUMMARY | 2025-05-28 16:35 | XMS_ITS | Encounter Summary ---
Author Organization [facility] Address [address] [place] [address] Care Team Providers Care Religious Educator Name Role Phone Cleve Catherine MD Primary Care Provider [phone] Reason for Referral * Imaging (Routine) - Authorized Specialty Diagnoses / Procedures Referred By Silvina quinones Referred To Contact Radiology Diagnoses Calculus of ureter Procedures CT Abdomen Pelvis wo Contrast Michele Rollins MD [address] [address] Phone: tel: fax: [facility] Referral ID Status Reason Start Date Expiration Date V isits Requested Visits Authorized [id number] Authorized 05/18/2025 07/17/2025 1 1 Reason for Visit * Imaging (Routine) - Authorized Specialty Diagnoses / Procedures Referred By Silvina quinones Referred To Contact Radiology Diagnoses Calculus of ureter Procedures CT Abdomen Pelvis wo Contrast Michele Rollins MD [address] [address] Phone: tel: fax: [facility] Referral ID Status Reason Start Date Expiration Date V isits Requested Visits Authorized [id number] Authorized 05/18/2025 07/17/2025 1 1 Encounter Details Date Type Department Care Team (Latest Contact Info) Description 05/28/2025 4:35 PM EDT - 05/28/2025 11:59 PM EDT Hospital Encounter [facility] CT Scan [address] [place] [id number] Calculus of ureter Discharge Disposition: Home or Self Care Social History Tobacco Use Types Packs/Day Years Used Date Smoking Tobacco: Never Assessed Sex and Gender Information Value Date Recorded Sex Assigned at Male 05/23/2025 2:49 PM EDT Legal Sex Male 6:46 PM EST Gender Identity Not on file Sexual Orientation Not on file documented as of this encounter Discharge Disposition Disposition Code Departure Means Destination Home or Self Care documented in this encounter Plan of Treatment Not on file documented as of this encounter Procedures Procedure Name Priority Date/Time Associated Diagnosis Comments CT ABDOMEN PELVIS WO CONTRAST Routine 05/28/2025 4:44 PM EDT Calculus of ureter documented in this encounter Results * CT Abdomen Pelvis wo Contrast (05/28/2025 4:44 PM EDT) Anatomical Region Laterality Modality Body Computed Tomogra phy 05/29/2025 3:34 AM EDT Impressions 05/29/2025 3:37 AM EDT Nonobstructing calculus left kidney. No ureteral stone or hydronephrosis. -------- FINAL REPORT -------- Dictated By: Fouzia Jensen Dictated Date: 05/29/2025 03:34 ET Assigned Physician: Fouzia Jensen Reviewed and Electronically Signed By: Fouzia Jensen Signed Date: 05/29/2025 03:37 ET Workstation ID: [id number] Transcribed By: Self Edit Transcribed Date: 05/29/2025 03:34 ET Narrative 05/29/2025 3:37 AM EDT PROCEDURE: CT Abdomen and Pelvis without contrast INDICATION: CLCULUS OF URETER TECHNIQUE: CT of the abdomen and pelvis without contrast. Multiplanar reformats. The examination was performed utilizing dose reduction techniques. DLP: 1043 mGy/cm COMPARISON: No priors available. FINDINGS: LOWER THORAX: Lung bases are clear. HEPATOBILIARY: No focal liver lesions. No cholelithiasis or biliary duct dilatation. SPLEEN: No splenomegaly. PANCREAS: No focal mass or ductal dilatation. ADRENALS: No nodules. KIDNEYS/URETERS: Punctate calculus upper pole left kidney. No ureteral stone or hydronephrosis. PELVIC ORGANS/BLADDER: Transurethral resection of the prostate defect. PERITONEUM / RETROPERITONEUM: No ascites or free air. No retroperitoneal lymphadenopathy. VESSELS: No aneurysm. GI TRACT: Moderate fecal loading throughout the colon. Normal appendix. No small bowel obstruction. BONES AND SOFT TISSUES: Possible enchondroma proximal right femoral diaphysis. Degenerative changes. No acute osseous abnormality. Inflammatory change in the right groin presumably from prior hernia repair. Procedure Note Fouzia Jensen MD - 05/29/2025 PROCEDURE: CT Abdomen and Pelvis without contrast INDICATION: CLCULUS OF URETER TECHNIQUE: CT of the abdomen and pelvis without contrast. Multiplanarreformats. The examination was performed utilizing dose reductiontechniques. DLP: 1043 mGy/cm COMPARISON: No priors available. FINDINGS: LOWER THORAX: Lung bases are clear. HEPATOBILIARY: No focal liver lesions. No cholelithiasis or biliary ductdilatation. SPLEEN: No splenomegaly. PANCREAS: No focal mass or ductal dilatation. ADRENALS: No nodules. KIDNEYS/URETERS: Punctate calculus upper pole left kidney. No ureteralstone or hydronephrosis. PELVIC ORGANS/BLADDER: Transurethral resection of the prostate defect. PERITONEUM / RETROPERITONEUM: No ascites or free air. No retroperitoneallymphadenopathy. VESSELS: No aneurysm. GI TRACT: Moderate fecal loading throughout the colon. Normal appendix.No small bowel obstruction. BONES AND SOFT TISSUES: Possible enchondroma proximal right femoraldiaphysis. Degenerative changes. No acute osseous abnormality.Inflammatory change in the right groin presumably from prior herniarepair. IMPRESSION: Nonobstructing calculus left kidney. No ureteral stone orhydronephrosis. -------- FINAL REPORT -------- Dictated By: Fouzia Jensen Dictated Date: 05/29/2025 03:34 ET Assigned Physician: Fouzia Jensen Reviewed and Electronically Signed By: Fouzia Jensen Signed Date: 05/29/2025 03:37 ET Workstation ID: [id number] Transcribed By: Self Edit Transcribed Date: 05/29/2025 03:34 ET Michele Rollins MD IM CT PROCEDURES Final Res ult documented in this encounter Visit Diagnoses Diagnosis Calculus of ureter documented in this encounter Care Teams Religious Educator Relationship Specialty Start Date End Date Cleve Catherine MD [address] [place] [id number] PCP - General Internal Medicine 10/03/21 documented as of this encounter
--- NOTE | 2025-05-29 08:51 | MHC.OFFVIS ---
Vital Signs 05/29/25 08:52 Height 5 ft 9 in Weight 197 lb BMI 29.1 BP 132/86 Blood Pressure Location Rt brachial Position Sitting Pulse 54 Pulse Source Pulse Oximeter Pulse Oximetry (%) 100 Oxygen Delivery Method Room Air Intake Visit Reasons: CIC mgmt. 2 mos FUV. Intake Note: ESTABLISHED PATIENT for mgmt of epigastric pain / GERD. Imaging scheduled 07/02 Chief Complaint; C.O. intermittent episodes of bloating, LQ abd pain, and reflux. Pt states that, although he still experiences some sx, his sx are better managed than they had been when he first started in our care. Retail Sales Clerk Required: No Accompanied by: Self / Same As Patient Allergies No Known Allergies Allergy (Verified 05/17/25 14:49) HPI HPI CIC mgmt. 2 mos FUV.: Details: LAST VISIT: Fatty liver Hemorrhoids Frequent bowel movements Constipation by delayed colonic transit Bloating Upper abdominal pain Postprandial epigastric pain Plan Patient will go and get his blood work done today. We will add H pylori testing in the office today. Will treat if positive. Patient will be sent for upper GI series with barium swallow. He reports epigastric pain occasional reflux and nausea. We will hold off on starting him on PPI at this time. Patient will start taking fiber [id number]. Recommended Metamucil 3 in 1 fiber with pre and probiotics. Continue senna as needed. Increase fluid intake and activity to promote better bowel motility. Continue low FODMAP diet. Follow-up in 2-3 months, sooner on as needed basis. He is agreeable to this plan and verbalizes understanding of instructions. He was given the opportunity to ask questions and all questions answered. ? Thank you for allowing me to participate in his care Orders H Pylori Breath Test Today K21.9 FL upper GI w Ba Swallow Today K21.9 TODAY'S VISIT Patient is here today for follow-up. Patient reports that he has been doing better since last visit, although he continues to have occasional abdominal bloating. He reports that epigastric pain has subsided. He did change his diet. He is eating more fruits and vegetables. Avoids eating fast food. Patient reports that he is moving his bowels well. Denies melena, hematochezia, unintentional weight loss or ribbon like stools. H pylori breath test negative. Patient has appointment for upper GI with barium swallow next month. Patient denies dyspepsia, dysphagia or odynophagia. [facility] Medical History RBBB (right bundle branch block) Fatty liver Reducible right inguinal hernia Epigastric pain HTN (hypertension) Surgical History H/O right inguinal hernia repair (05/04/25) History of ankle surgery Hx of colonoscopy Family History Other Bone spur of ankle Social History Housing: House Are you a primary child care team lead to a significant other at home: No Do you presently have visiting nurse or other home services: No Patient Tobacco Use Status: Never used Tobacco e-Cigarette/Vaping Use: Never Used service: No Current occupational status: employed 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 Cognitive needs: No Hearing needs: No Vision needs: No Review of Systems Const Denies weight gain and Denies weight loss ENT Reports no additional complaints, Denies dysphagia and Denies odynophagia Card Reports no additional complaints Resp Reports no additional complaints GI Reports abdominal pain, Denies belching, Denies melena, Reports bloating, Denies change in bowel habits, Reports constipation, Denies dysphagia, Denies excessive flatus, Denies dyspepsia, Reports heartburn, Denies diarrhea, Reports loose stools, Denies nausea, Denies odynophagia and Denies vomiting Reports no additional complaints Musc Reports no additional complaints Neuro Reports no additional complaints Psych Reports no additional complaints Endo Reports no additional complaints Physical Exam Vital Signs: Last Vital Signs Pulse 54 05/29/25 08:52 BP 132/86 05/29/25 08:52 Pulse Ox 100 05/29/25 08:52 Oxygen Delivery Method Room Air 05/29/25 08:52 BMI result Body Mass Index 29.1 Const General: healthy appearing, no acute distress and well developed Nutritional Appearance: well nourished and obese Orientation/consciousness: patient oriented x3 Resp Effort & Inspection: normal respiratory effort, able to speak in complete sentences, no tracheal deviation and symmetric chest movement Auscultation: clear to auscultation bilaterally Cardio Rate: regular rate GI Inspection: Yes normal to inspection, No distended and Yes obesity Palpation (GI): Soft to palpation, not firm, nontender and No hepatosplenomegaly present Auscultation: Hyperactive bowel sounds present General: Yes no CVA tenderness Back/Spine/Pelvis Back: no CVA tenderness Skin General skin exam: elasticity normal, turgor normal and dry skin Neuro General: patient oriented x3 Psych Appearance: grossly normal Mental Status: mental status grossly normal Assessment & Plan Assessment & Plan (1) Fatty liver: Code(s): K76.0 - Fatty (change of) liver, not elsewhere classified Category: Medical (2) Bleeding hemorrhoids: Code(s): K64.9 - Unspecified hemorrhoids Category: Medical (3) Excessive gas: Code(s): R14.3 - Flatulence Category: Medical (4) Bloating: Code(s): R14.0 - Abdominal distension (gaseous) Category: Medical (5) Upper abdominal pain: Code(s): R10.10 - Upper abdominal pain, unspecified Category: Medical Plan Patient will continue avoiding dietary triggers. Discussed with patient the importance of eliminating sugar and carbs. Patient will start digestive enzymes. Low FODMAP diet discussed with patient. Patient will return in 3 months, sooner on as needed basis. He is agreeable to this plan and verbalizes understanding of instructions. He was given the opportunity to ask questions and all questions answered Thank you for allowing me to participate in his care Medications: New jxbhzx-jryltaym-jwhjjad 36,000-114,000- 180,000 unit (Creon) administer with meals and/or snacks 1 cap PO QID 120 caps 3RF K86.89 - Other specified diseases of pancreas Coding Level of Care Code Est Pt Level 3 (52506) Diagnoses Fatty liver K76.0 Bleeding hemorrhoids K64.9 Excessive gas R14.3 Bloating R14.0 Upper abdominal pain R10.10 Time Spent (min) 30 Comment 20 minutes spent with patient and additional 10 minutes spent reviewing his records
[2025-05-29 08:52] VITALS: BP 132/86; PULSE 54; O2SAT 100; BMI 29.1
--- OUTSIDE RECORDS SUMMARY | 2025-05-29 10:48 | XMS_ITS | Encounter Summary ---
Author Organization [facility] Address [address] [place] [address] Care Team Providers Care Inspector Fibrous Wallboard Name Role Phone Cleve Catherine MD Primary Care Provider [phone] Encounter Details Date Type Department Care Team (Late st Contact Info) Description 2024 Lab Requisition [facility] Lab [address] [facility] [place] [address] Brittney Leahy PA [address] [facility] [address] [place] [address] Testicular hypofunction Social History Tobacco Use Types [...] AM EDT) WBC 5.8 4.8 - 10.8 K/[facility] LAB HEMETOLOGY METHOD 2024 1:09 PM EDT [facility] RBC 4.70 4.50 - 5.50 M/[facility] LAB HEMETOLOGY METHOD 2024 1:09 PM [facility] Hemoglobin 14.8 13.5 - 17.5 g/dL LAB HEMETOLOGY METHOD 2024 1:09 PM [facility] Hematocrit 44.0 42.0 - 54.0 % LAB HEMETOLOGY METHOD 2024 1:09 PM [facility] MCV 92.8 79.0 - 98.0 FL LAB HEMETOLOGY METHOD 2024 1:09 PM [facility] MCH 31.2 27.0 - 32.0 pcg LAB HEMETOLOGY METHOD 2024 1:09 PM [facility] MCHC 33.6 32.0 - 37.0 g/dL LAB HEMETOLOGY METHOD 2024 1:09 PM [facility] RDW 12.7 11.0 - 15.0 % LAB HEMETOLOGY METHOD 2024 1:09 PM [facility] Platelets 253 130 - 400 K/mcL LAB HEMETOLOGY METHOD 2024 1:09 PM [facility] MPV 9.9 7.0 - 11.0 FL LAB HEMETOLOGY METHOD 2024 1:09 PM [facility] NRBC 0.0 <1.0 % LAB HEMETOLOGY METHOD 2024 1:09 PM [facility] NRBC Absolute 0.00 <0.10 K/mcL LAB HEMETOLOGY METHOD 2024 1:09 PM [facility] Neutrophils Relative 56.1 % LAB HEMETOLOGY METHOD 2024 1:09 PM [facility] Lymphocytes Relative 31.7 % LAB HEMETOLOGY METHOD 2024 1:09 PM [facility] Monocytes Relative 9.1 % LAB HEMETOLOGY METHOD 2024 1:09 PM EDT [facility] Eosinophils Relative 1.9 % LAB HEMETOLOGY METHOD 2024 1:09 PM EDT [facility] Basophils Relative 0.9 % LAB HEMETOLOGY METHOD 2024 1:09 PM EDT [facility] Immature Granulocytes Relative 0.3 % LAB HEMETOLOGY METHOD 2024 1:09 PM EDT [facility] Neutrophils Absolute 3.26 1.50 - 7.00 K/mcL LAB HEMETOLOGY METHOD 2024 1:09 PM EDT [facility] Lymphocytes Absolute 1.84 1.00 - 5.00 K/mcL LAB HEMETOLOGY METHOD 2024 1:09 PM EDT [facility] Monocytes Absolute 0.53 0.20 - 1.00 K/mcL LAB HEMETOLOGY METHOD 2024 1:09 PM EDT [facility] Eosinophils Absolute 0.11 0.00 - 0.50 K/mcL LAB HEMETOLOGY METHOD 2024 1:09 PM EDT [facility] Basophils Absolute 0.05 0.00 - 0.20 K/mcL LAB HEMETOLOGY METHOD 2024 1:09 PM EDT [facility] Immature Granulocytes Absolute 0.02 0.00 - 0.03 K/mcL LAB HEMETOLOGY METHOD 2024 1:09 PM EDT [facility] Blood Venous blood specimen / Unknown 2024 10:42 AM EDT 2024 12:14 PM EDT us Brittney GONZALEZ LAB BLOOD ORDERABLES Final Res ult [facility] [address] [place] [address], documented in this encounter Visit Diagnoses Diagnosis Testicular hypofunction Other testicular hypofunction documented in this encounter Care Teams Inspector Fibrous Wallboard Relationship Specialty Start Date End Date Cleve Catherine MD [address] [place] [address] PCP - General Internal Medicine 10/03/21 documented as of this encounter
--- OUTSIDE RECORDS SUMMARY | 2025-05-29 10:48 | XMS_ITS | Clinical Summary ---
Author Organization [employer] Address [address] [place] [address] [address] [place] [address] Care Team Providers Care Wafer Substrate Tester Name Role Phone Unavailable Primary Care Provider [...] Encounters Date Type Department Care Team Description 05/23/2025 Telephone [facility] [address] [place] [address] Nedra Vergara from Last 3 Months Social History Tobacco [...]
--- OUTSIDE RECORDS SUMMARY | 2025-05-29 10:48 | XMS_ITS | Patient Health Record ---
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 Problem Paronychia (39146000) Paronychia (681.11) Active confirmed Problem Tinea pedis (9775559) Tinea Pedis (110.4) Active confirmed Problem Abscess /Cellulitis (682.7) Active confirmed Problem Ingrowing nail (917692807) Ingrowing Nail (703.0) Active confirmed Plan Of Treatment Pending Test Test Name Order Date 39282- I&D ABSCESS-COMPLICATED,MULTI Insurance Providers Payer Name Payer Address Payer Phone Subscriber Number Group Number Insured Name Patient Relationship to Insured Coverage Start Date Coverage End Date [employer] [address] [place] [address] [id number] Haile Cadena Self - patient is the insured Medical (General) History Medical History History ICD Code prostate conditions Surgical History Surgery Date(Month/Year) prostate surgery 2008
--- OUTSIDE RECORDS SUMMARY | 2025-05-29 10:48 | XMS_ITS | Clinical Summary ---
Author Organization [address] [facility] Address [address] [place] [address] Phone Care Team Providers Care Investment Recovery Technician Name Role Phone Cleve Catherine MD Primary Care Provider [phone] Allergies No known active allergies Encounters Date Type Department Care Team Description 05/28/2025 4:35 PM EDT - 05/28/2025 11:59 PM EDT Hospital Encounter [facility] CT Scan [address] [place] [address] Calculus of ureter Discharge Disposition: Home or Self Care from Last 3 Months Social History Tobacco [...] Years (1 of 1 - PCV) 11/21/2015 Cholesterol Screening (Lipid Panel) 08/22/2022 Colorectal Cancer Screening: Colonoscopy 08/22/2022 HIV Screening 08/22/2022 Hepatitis C Screening 08/22/2022 Social Influencers of Health Screening 08/22/2022 Zoster Vaccines (2 of 2) 11/06/2022 09/11/2022 Depression Screening 09/13/2024 DTaP,Tdap,and Td Vaccines (3 - Td or Tdap) 03/27/2025 03/27/2015, 10/26/2008 COVID-19 Vaccine (3 - 2024- season) 2025 10/30/2021, 10/09/2021 Influenza Vaccine (#1) 2025 2, 07/07/2018, 06/10/2017, Additional history exists RSV Immunization Adult Patients (1 - 1-dose [...] 20 months Aged Out No longer eligible based on patient's age to complete this topic Varicella Vaccines Aged Out No longer eligible based on patient's age to complete this topic Procedures Procedure Name Priority Date/Time Associated Diagnosis Comments CT ABDOMEN PELVIS WO CONTRAST Routine 05/28/2025 4:44 PM EDT Calculus of ureter from Last 3 Months Results * CT Abdomen Pelvis wo Contrast [...] Signed Date: 05/29/2025 03:37 ET Workstation ID: [id number] Transcribed By: Self Edit Transcribed Date: 05/29/2025 [...] Signed Date: 05/29/2025 03:37 ET Workstation ID: [id number] Transcribed By: Self Edit Transcribed Date: 05/29/2025 03:34 ET Michele Rollins MD IMG CT PROCEDURES Final Res ult from Last 3 Months Insurance [facility] Care Teams Investment Recovery Technician Relationship Specialty Start Date End Date Cleve Catherine MD [address] [place] [address] PCP - General Internal Medicine 10/03/21
== END 2025-05-29 09:30 | disposition home or self-care (01) ==
PROVIDERS: PCP Internal Medicine; Visit Provider Nurse Practitioner Family
DX: K76.0 Fatty (change of) liver, not elsewhere classified (principal); K64.9 Unspecified hemorrhoids; R14.3 Flatulence; R14.0 Abdominal distension (gaseous); R10.10 Upper abdominal pain, unspecified
CPT/HCPCS: 99213

== ENCOUNTER → 2025-05-29 08:49 | Outpatient (BNVA) | payer OTHER, SELFPAY | PROVIDERS: PCP Internal Medicine; Visit Provider Nurse Practitioner Family | DX: K76.0 Fatty (change of) liver, not elsewhere classified (principal); K64.9 Unspecified hemorrhoids; R14.3 Flatulence; R10.10 Upper abdominal pain, unspecified; R14.0 Abdominal distension (gaseous) | CPT/HCPCS: 99212 ==

== ENCOUNTER 2025-07-18 11:04 | Outpatient (AMB) | payer OTHER, SELFPAY ==
[2025-07-18 11:07] VITALS: BP 108/70; PULSE 63; O2SAT 97; BMI 28.6
--- NOTE | 2025-07-18 11:07 | MHC.PC.OV ---
Vital Signs 07/18/25 11:07 Height 5 ft 9 in Weight 194 lb BMI 28.6 BP 108/70 Blood Pressure Location Rt brachial Position Sitting Pulse 63 Pulse Source Pulse Oximeter Pulse Oximetry (%) 97 Intake Visit Reasons: R3 months Follow up RE Allergies No Known Allergies Allergy (Verified 07/18/25 11:07) Medication List - Last Reconciled 07/18/25 by Cleve Catherine MD acetaminophen 1,000 mg (2 x 500 mg) PO .q8 PRN blood pressure monitor (Blood Pressure Kit) Use to check blood pressure daily cholecalciferol (vitamin D3) 50 mcg PO ONCE cyanocobalamin (vitamin B-12) 1,000 mcg PO 2XW 90 days ibuprofen 600 mg PO Q6H PRN zcqfnc-omusabba-xgxdtbv (pork) 36,000-114,000- 180,000 unit (Creon) 1 cap PO QID sennosides (Natural Senna Laxative) 17.2 mg (2 x 8.6 mg) PO BEDTIME simethicone 125 mg PO BID-QID PRN valsartan 40 mg PO DAILY Tobacco use date assessed: 03/20/25 Dental Screening Dental Screen Date: 12/12/24 HPI R3 months Follow up RE HPI Details History of Present Illness The patient is a 59-year-old male presenting for a follow-up appointment for blood pressure management and chronic condition management. Hypertension: - The patient is taking valsartan 80 mg for blood pressure control. - In May, his blood pressure was 132/86 mmHg with a heart rate of 63 bpm. - He reports significant dietary changes since January, including stopping rice and sugar, and eating more vegetables, which has led to a 19-pound weight loss since his last visit in March. - His weight has decreased from 215 pounds to 194 pounds. Gastrointestinal symptoms: - The patient is established with a laundry press operator for stomach issues. - He was scheduled for an endoscopy last month but missed the appointment due to insurance problems which have since been resolved. - He reports his symptoms are less frequent than before but still occur sometimes. Inguinal hernia repair: - The patient underwent an inguinal hernia repair about two and a half months ago. - Post-operatively, he experienced scrotal swelling, which is now resolving. - He continues to experience a pinching sensation at the surgical site, which has been attributed to the surgical mesh. - He reports that one testicle remains enlarged, though it is not painful. Social History: - Employment: The patient was recently out of work, leading to a lapse in health insurance, but has since started working again and has insurance. - Diet: The patient has significantly altered his diet since January, which includes eating more vegetables, and stopping consumption of rice and sugar. - Weight Management: He has lost 19 pounds since March due to his dietary changes, with his current weight at 194 pounds. Problem List - Essential Hypertension - gastrointestinal disorder causing cramping - Preventative care: Influenza vaccination - Preventative care: Vitamin D and B12 supplementation - History of inguinal hernia repair - scrotal swelling Plan - Hypertension: The dose of valsartan will be reduced to one tablet daily due to recent weight loss and a current low blood pressure reading of 108/70 mmHg. - Blood Pressure Monitoring: The patient was advised to monitor his blood pressure at home and to continue with one tablet if it remains below 140 mmHg, but to increase to two tablets if it goes above 140 mmHg. - Medications: Prescriptions for valsartan, vitamin D3, and vitamin B12 were sent to the pharmacy. - Post-operative Concerns: The patient will be referred to a urologist at [facility] for evaluation of the enlarged testicle post-inguinal hernia repair. - Gastrointestinal Issues: The patient was advised to keep a food diary to track symptoms and will contact his laundry press operator to reschedule his endoscopy. - Vaccinations: The patient will receive an influenza vaccine during this visit. - Labs: The patient will have fasting labs drawn before his next appointment. - Follow-up: The patient has a follow-up appointment scheduled in October. Review of Systems - General: No fever no chills - Neurological: No headaches no dizziness - Ear nose throat: No sore throat no hearing difficulty no ear pain - Cardiovascular: No syncope, no chest pain, no palpitations - Endocrine: No polyuria polydipsia no heat intolerance - Genitourinary: No dysuria , no blood in urine Physical Exam General: No acute distress HEENT: No acute findings Neck: Pain in the neck Respiratory system: Able to talk in full sentences, no audible wheeze Cardiovascular: S1-S2 regular in rate and rhythm Gastrointestinal: No pain Extremities: No new findings DETECTIVE NARCOTICS AND VICE: Alert awake oriented x3 motor intact Skin: Normal turgor [facility] Medical History RBBB (right bundle branch block) Fatty liver Reducible right inguinal hernia Epigastric pain HTN (hypertension) Surgical History H/O right inguinal hernia repair (05/04/25) History of ankle surgery Hx of colonoscopy Family History Other Bone spur of ankle Social History Housing: House Are you a primary child care attendant school to a significant other at home: No Do you presently have visiting nurse or other home services: No Patient Tobacco Use Status: Never used Tobacco e-Cigarette/Vaping Use: Never Used service: No Current occupational status: employed 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 Cognitive needs: No Hearing needs: No Vision needs: No Questionnaire Thrive Questionnaire Date Thrive assessed: 09/27/24 I am a: Patient What is your living situation today?: I have a steady place to live Within the past 12 months, did the food you bought not last and you didn't have the money to get more?: Sometimes True Within the past 12 months, did you worry whether your food would run out before you got money to buy more?: Sometimes True Do you have trouble paying for medicines?: No Do you have trouble getting transportation to medical appointments?: No Do you have trouble paying your heating and electricity bill?: No Do you have trouble taking care of your child, family member or friend?: No Do you have trouble with day-to-day activities such as bathing, preparing meals, shopping, managing finances, etc.?: No Are you currently unemployed and looking for a job?: No Are you interested in more education?: No Please select the resources that you would like help with: None Currently or been in a relationship where the following occur: I choose not to answer THRIVE Score: 2 NATHALIE-7 AMB Questionnaire NATHALIE-7 Date NATHALIE - 7 assessed: 03/20/25 Source: Developed by Drs. Erasmo Morel, Marbella Rutherford, Rich Mann and colleagues, with an educational lane from [employer]. Physical exam (Primary Care) Vital Signs: Last Vital Signs Pulse 63 07/18/25 11:07 BP 108/70 07/18/25 11:07 Pulse Ox 97 07/18/25 11:07 BMI result Body Mass Index 28.6 Tobacco/Smoking Status: Tobacco use Status Tobacco use date assessed 03/20/25 07/18/25 11:07 Patient Tobacco Use Status Never used Tobacco 07/18/25 11:07 e-Cigarette/Vaping Use Never Used 07/18/25 11:07 Thrive Assessment: Date of Thrive Assessment Date Thrive assessed 09/27/24 07/18/25 11:07 Currently or been in a relationship where the following occur: I choose not to answer Office Procedures Flu Questionnaire Does the patient have a severe egg allergy?: No Does the patient have severe life threatening allergies?: No Does the patient have a fever or illness today?: No Has the patient ever had Guillain-Jefferson Syndrome?: No Has the patient ever had any past reaction to a flu shot?: No Immunizations Fluarix [id number] (PF) 45 mcg (15 mcg x 3)/0.5 mL IM syringe Performing Provider: Cleve Catherine MD Performing Location: [facility] Administered by: Tristen Conner CMA on 07/18/25 11:30 Dose Route Admin Location Dispensed Lot Number Expiration Date 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, unspecified Category: Medical (2) Hypertension, essential, benign: Code(s): I10 - Essential (primary) hypertension Category: Medical (3) Abdominal cramping: Code(s): R10.9 - Unspecified abdominal pain Category: Medical (4) Impaired fasting blood sugar: Code(s): R73.01 - Impaired fasting glucose Category: Medical (5) Vitamin D deficiency: Code(s): E55.9 - Vitamin D deficiency, unspecified Category: Medical (6) B12 deficiency: Code(s): E53.8 - Deficiency of other specified B group vitamins Category: Medical (7) Fatty liver: Code(s): K76.0 - Fatty (change of) liver, not elsewhere classified Category: Medical Plan Hypertension: - The patient is taking valsartan 80 mg for blood pressure control. - In May, his blood pressure was 132/86 mmHg with a heart rate of 63 bpm. - He reports significant dietary changes since January, including stopping rice and sugar, and eating more vegetables, which has led to a 19-pound weight loss since his last visit in March. - His weight has decreased from 215 pounds to 194 pounds. Gastrointestinal symptoms: - The patient is established with a laundry press operator for stomach issues. - He was scheduled for an endoscopy last month but missed the appointment due to insurance problems which have since been resolved. - He reports his symptoms are less frequent than before but still occur sometimes. Inguinal hernia repair: - The patient underwent an inguinal hernia repair about two and a half months ago. - Post-operatively, he experienced scrotal swelling, which is now resolving. - He continues to experience a pinching sensation at the surgical site, which has been attributed to the surgical mesh. - He reports that one testicle remains enlarged, though it is not painful. Social History: - Employment: The patient was recently out of work, leading to a lapse in health insurance, but has since started working again and has insurance. - Diet: The patient has significantly altered his diet since January, which includes eating more vegetables, and stopping consumption of rice and sugar. - Weight Management: He has lost 19 pounds since March due to his dietary changes, with his current weight at 194 pounds. Problem List - Essential Hypertension - gastrointestinal disorder causing cramping - Preventative care: Influenza vaccination - Preventative care: Vitamin D and B12 supplementation - History of inguinal hernia repair - scrotal swelling Plan - Hypertension: The dose of valsartan will be reduced to one tablet daily due to recent weight loss and a current low blood pressure reading of 108/70 mmHg. - Blood Pressure Monitoring: The patient was advised to monitor his blood pressure at home and to continue with one tablet if it remains below 140 mmHg, but to increase to two tablets if it goes above 140 mmHg. - Medications: Prescriptions for valsartan, vitamin D3, and vitamin B12 were sent to the pharmacy. - Post-operative Concerns: The patient will be referred to a urologist at [facility] for evaluation of the enlarged testicle post-inguinal hernia repair. - Gastrointestinal Issues: The patient was advised to keep a food diary to track symptoms and will contact his laundry press operator to reschedule his endoscopy. - Vaccinations: The patient will receive an influenza vaccine during this visit. - Labs: The patient will have fasting labs drawn before his next appointment. - Follow-up: The patient has a follow-up appointment scheduled in October. Orders: Orders Comprehensive [place]. Panel Fast 07/18/25 E53.8 - Deficiency of other specified B group vitamins, E55.9 - Vitamin D deficiency, unspecified, I10 - Essential (primary) hypertension, K76.0 - Fatty (change of) liver, not elsewhere classified, R73.01 - Impaired fasting glucose Lipid Panel 07/18/25 E53.8 - Deficiency of other specified B group vitamins, E55.9 - Vitamin D deficiency, unspecified, I10 - Essential (primary) hypertension, K76.0 - Fatty (change of) liver, not elsewhere classified, R73.01 - Impaired fasting glucose Vitamin B12 07/18/25 E53.8 - Deficiency of other specified B group vitamins, E55.9 - Vitamin D deficiency, unspecified, I10 - Essential (primary) hypertension, K76.0 - Fatty (change of) liver, not elsewhere classified, R73.01 - Impaired fasting glucose Complete Blood Count Auto Diff 07/18/25 E53.8 - Deficiency of other specified B group vitamins, E55.9 - Vitamin D deficiency, unspecified, I10 - Essential (primary) hypertension, K76.0 - Fatty (change of) liver, not elsewhere classified, R73.01 - Impaired fasting glucose Vitamin D 25-OH (D2 and D3) 07/18/25 E53.8 - Deficiency of other specified B group vitamins, E55.9 - Vitamin D deficiency, unspecified, I10 - Essential (primary) hypertension, K76.0 - Fatty (change of) liver, not elsewhere classified, R73.01 - Impaired fasting glucose TSH reflex Free T4 07/18/25 E53.8 - Deficiency of other specified B group vitamins, E55.9 - Vitamin D deficiency, unspecified, I10 - Essential (primary) hypertension, K76.0 - Fatty (change of) liver, not elsewhere classified, R73.01 - Impaired fasting glucose Influenza [id number] Immunization 07/18/25 Z23 - Encounter for immunization Referrals Urology Referral Q55.9 - Congenital malformation of male genital organ, unspecified Medications: New cetirizine (Zyrtec) 10 mg PO DAILY PRN 90 tabs 0RF allergy symptoms Changed From valsartan 80 mg (2 x 40 mg) PO DAILY 180 tabs 0RF To valsartan 40 mg PO DAILY 60 tabs 0RF Refilled cholecalciferol (vitamin D3) 50 mcg PO ONCE 90 tabs 1RF cyanocobalamin (vitamin B-12) 1,000 mcg PO 2XW 26 tabs 3RF 90 days
--- OUTSIDE RECORDS SUMMARY | 2025-07-18 13:17 | XMS_ITS | Clinical Summary ---
Author Organization [employer] Address [address] [place] [address] [address] [place] [address] Care Team Providers Care Credit Risk Analytics Manager Name Role Phone Unavailable Primary Care Provider [...] Type Department Care Team Description 05/23/2025 Telephone [facility] [address] [place] [address] Nedra Vergara from Last 3 Months Social [...] Mass Index - - Plan of Treatment Upcoming Encounters Date Type Department Care Team (Late st Contact Info) Description 07/24/2025 11:00 AM EST Office Visit [facility] [address] [place] [address] Nedra Vergara Health Maintenance Due Date Last Done Comments [...] Most Recently Relevant to Health Maintenance Insurance [place] STAND AD[place]
--- OUTSIDE RECORDS SUMMARY | 2025-07-18 13:17 | XMS_ITS | Patient Health Record ---
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 Problem Paronychia (46161683) Paronychia (681.11) Active confirmed Problem Tinea pedis (1548643) Tinea Pedis (110.4) Active confirmed Problem Abscess /Cellulitis (682.7) Active confirmed Problem Ingrowing nail (028356197) Ingrowing Nail (703.0) Active confirmed Plan Of Treatment Pending Test Test Name Order Date 94866- I&D ABSCESS-COMPLICATED,MULTI Insurance Providers Payer Name Payer Address Payer Phone Subscriber Number Group Number Insured Name Patient Relationship to Insured Coverage Start Date Coverage End Date Cigna [address] REYNA Olivas [phone] [id number] Haile Cadena Self - patient is the insured Medical (General) History Medical History History ICD Code prostate conditions Surgical History Surgery Date(Month/Year) prostate surgery 2008
--- OUTSIDE RECORDS SUMMARY | 2025-07-18 13:17 | XMS_ITS | Encounter Summary ---
Author Organization [facility] Address [address] [place] [address] Care Team Providers Care Certified Adaptive Physical Educator Name Role Phone Cleve Catherine MD Primary Care Provider [phone] Encounter Details Date Type Department Care Team (Late st Contact Info) Description [address] [facility] - [facility] Lab [address] [facility] [place] [address] Brittney Leahy PA [address] [facility] [address] [place] [address] Testicular hypofunction Social History Tobacco Use Types [...] AM EDT) WBC 5.8 4.8 - 10.8 K/[facility] LAB HEMETOLOGY METHOD 2024 1:09 PM EDT [facility] RBC 4.70 4.50 - 5.50 M/[facility] LAB HEMETOLOGY METHOD 2024 1:09 PM [facility] Hemoglobin 14.8 13.5 - 17.5 g/dL LAB HEMETOLOGY METHOD 2024 1:09 PM [facility] Hematocrit 44.0 42.0 - 54.0 [...] LAB HEMETOLOGY METHOD 2024 1:09 PM EDT [facility] Eosinophils Relative 1.9 % LAB HEMETOLOGY METHOD 2024 1:09 PM EDT [facility] Basophils Relative 0.9 % LAB HEMETOLOGY METHOD 2024 1:09 PM EDT [facility] Immature Granulocytes Relative 0.3 % LAB HEMETOLOGY METHOD 2024 1:09 PM EDT [facility] Neutrophils Absolute 3.26 1.50 - 7.00 K/[facility]L LAB HEMETOLOGY METHOD 2024 1:09 PM EDT [facility] Lymphocytes Absolute 1.84 1.00 - 5.00 K/mcL LAB HEMETOLOGY METHOD 2024 1:09 PM EDT [facility] Monocytes Absolute 0.53 0.20 - 1.00 K/[facility] LAB HEMETOLOGY METHOD 2024 1:09 PM EDT [facility] Eosinophils Absolute 0.11 0.00 - 0.50 K/mcL LAB HEMETOLOGY METHOD 2024 1:09 PM EDT [facility] Basophils Absolute 0.05 0.00 - 0.20 K/mcL LAB HEMETOLOGY METHOD 2024 1:09 PM EDT [facility] Immature Granulocytes Absolute 0.02 0.00 - 0.03 K/mcL LAB HEMETOLOGY METHOD 2024 1:09 PM EDT [facility] Blood Venous blood specimen / Unknown 2024 10:42 AM EDT 2024 12:14 PM EDT us Brittney GONZALEZ LAB BLOOD ORDERABLES Final Res ult [facility] [address] [place] [address], documented in this encounter Visit Diagnoses Diagnosis Testicular hypofunction Other testicular hypofunction documented in this encounter Care Teams Certified Adaptive Physical Educator Relationship Specialty Start Date End Date Cleve Catherine MD [address] [place] [address] PCP - General Internal Medicine 10/03/21 documented as of this encounter
--- OUTSIDE RECORDS SUMMARY | 2025-07-18 13:17 | XMS_ITS | Clinical Summary ---
Author Organization [address] [facility] Address [address] [place] [address] Phone Care Team Providers Care Flagsetter Name Role Phone Cleve Catherine MD Primary Care Provider [phone] Allergies No known active allergies Encounters Date Type Department Care Team Description 05/28/2025 4:35 PM EDT - 05/28/2025 11:59 PM EDT Hospital Encounter [facility] CT Scan [address] [place] [address] Calculus of ureter Discharge Disposition: [...] Health Maintenance Due Date Last Done Comments Colorectal Cancer Screening: Colonoscopy 1965 Hepatitis B Vaccines (1 of 3 - 19+ 3-dose series) 1984 Pneumococcal Vaccine: 50+ Years (1 of 1 - PCV) 11/21/2015 Cholesterol Screening (Lipid Panel) 08/22/2022 HIV Screening 08/22/2022 Hepatitis C Screening [...] Signed Date: 05/29/2025 03:37 ET Workstation ID: [id number] Transcribed By: Self Edit Transcribed Date: 05/29/2025 [...] -------- FINAL REPORT -------- Dictated By: Fouzia eJnsen Dictated Date: 05/29/2025 03:34 ET Assigned Physician: Fouzia Jensen Reviewed and Electronically Signed By: Fouzia Jensen Signed Date: 05/29/2025 03:37 ET Workstation ID: [id number] Transcribed By: Self Edit Transcribed Date: 05/29/2025 03:34 ET Michele Rollins MD IMG CT PROCEDURES Final Res ult from Last 3 Months Insurance [facility] [employer] Care Teams Flagsetter Relationship Specialty Start Date End Date Cleve Catherine MD [address] [place] [address] PCP - General Internal Medicine 10/03/21
== END 2025-07-18 11:54 | disposition home or self-care (01) ==
LOC: HO.HMCC 11:05
PROVIDERS: PCP Internal Medicine; Visit Provider Internal Medicine
DX: Q55.9 Congenital malformation of male genital organ, unspecified (principal); I10 Essential (primary) hypertension; R10.9 Unspecified abdominal pain; R73.01 Impaired fasting glucose; E55.9 Vitamin D deficiency, unspecified; E53.8 Deficiency of other specified B group vitamins; K76.0 Fatty (change of) liver, not elsewhere classified

== ENCOUNTER → 2025-07-18 11:04 | Outpatient (BNVA) | payer OTHER, SELFPAY | PROVIDERS: PCP Internal Medicine; Visit Provider Internal Medicine | DX: I10 Essential (primary) hypertension (principal); Q55.9 Congenital malformation of male genital organ, unspecified; R10.9 Unspecified abdominal pain; R73.01 Impaired fasting glucose; E55.9 Vitamin D deficiency, unspecified; E53.8 Deficiency of other specified B group vitamins; K76.0 Fatty (change of) liver, not elsewhere classified; Z23 Encounter for immunization | CPT/HCPCS: 90471; 90656; 99212 ==

== ENCOUNTER 2025-09-03 10:15 | Outpatient (REF) | payer OTHER, SELFPAY ==
--- NOTE | ~2025-09-03 | US_ITS ---
EXAMINATION: US LOWER EXTREMITY VENOUS (REFLUX EXAM), BILATERAL CLINICAL INFORMATION: Venous incompetence COMPARISON: None. TECHNIQUE: Color flow triplex imaging and compression Doppler was performed to evaluate both the deep and the superficial systems bilaterally. To evaluate the superficial system, the examination was performed in the upright position. Color-flow Doppler ultrasound and compression ultrasound were utilized. In addition, maneuvers were utilized to demonstrate reflux. FINDINGS: 1. DEEP VENOUS ULTRASOUND OF THE RIGHT LOWER EXTREMITY: Common Femoral Vein: Compressible, normal respiratory variation and augmented flow. Femoral Vein: Compressible, normal color flow and augmentation. Popliteal Vein: Compressible, normal augmentation. Deep Reflux: Femoral Vein, mid: Reflux: 1900 ms Popliteal Vein: Reflux: 1940 ms 2. SUPERFICIAL ULTRASOUND WITH DOPPLER OF RIGHT LOWER EXTREMITY: GREAT SAPHENOUS VEIN: Saphenofemoral Junction: 0.5 cm; Reflux: 0 ms Proximal Thigh: 0.3 cm; Reflux: 0 ms Mid Thigh: 0.2 cm; Reflux: 0 ms Distal Thigh: 0.2 cm; Reflux: 0 ms At Knee: 0.2 cm; Reflux: 0 ms Below Knee/Proximal Calf: 0.2 cm; Reflux: 0 ms Mid Calf: 0.2 cm; Reflux: 0 ms Ankle/Distal Calf: 0.2 cm; Reflux: 0 ms Lateral accessory GREAT SAPHENOUS VEIN: Saphenofemoral Junction: 0.2 cm; Reflux: 0 ms Mid Thigh: 0.1 cm; Reflux: 0 ms SMALL SAPHENOUS VEIN: Drainage: Thigh extension Saphenopopliteal Junction: 0.2 cm; Reflux: 0 ms Mid calf: 0.2 cm; Reflux: 0 ms Distal: 0.2 cm; Reflux: 0 ms VEIN OF GIACOMINI: Size: 0.2 cm Reflux: 0 ms PERFORATORS: Location: Greater saphenous vein, mid thigh Size: 0.2 cm Reflux: 0 ms VARICOSITIES > 3mm: Location: None Imaged 3. DEEP VENOUS ULTRASOUND OF THE LEFT LOWER EXTREMITY: Common Femoral Vein: Compressible, normal respiratory variation and augmented flow. Femoral Vein: Thin linear echogenic material is present on the deep wall of the mid thigh femoral vein. Popliteal Vein: There is heterogeneous echogenic material with peaked margins within the popliteal vein that is nonocclusive. Deep Reflux: There is no evidence of significant reflux in the deep system in either the common femoral vein, superficial femoral or the popliteal vein. Femoral Vein, mid: Reflux: 876 ms 4. SUPERFICIAL ULTRASOUND WITH DOPPLER OF LEFT LOWER EXTREMITY: GREAT SAPHENOUS VEIN: Saphenofemoral Junction: 1.0 cm; Reflux: 0 ms Proximal Thigh: 0.3 cm; Reflux: 0 ms Mid Thigh: 0.3 cm; Reflux: 0 ms Distal Thigh: 0.3 cm; Reflux: 0 ms At Knee: 0.3 cm; Reflux: 0 ms Below Knee/Proximl calf: 0.3 cm; Reflux: 0 ms Mid Calf: 0.3 cm; Reflux: 0 ms Distal Calf/Ankle: 0.2 cm; Reflux: 0 ms Lateral accessory GREAT SAPHENOUS VEIN: Saphenofemoral Junction: 0.3 cm; Reflux: 0 ms Mid Thigh: 0.2 cm; Reflux: 0 ms SMALL SAPHENOUS VEIN: Drainage: Thigh extension Saphenopopliteal Junction: 0.4 cm; Reflux: 0 ms Mid calf: 0.3 cm; Reflux: 0 ms Distal calf: 0.4 cm; Reflux: 0 ms VEIN OF GIACOMINI: Size: 0.3 Reflux: 0 PERFORATORS: Location: Small saphenous vein, distal Size: 0.2 cm Reflux: 0 ms Location: Greater saphenous vein, midthigh Size: 0.3 cm Reflux: 0 ms Location: Greater saphenous vein sap portal developer into varicosity, distal thigh Size: 0.2 cm Reflux: 0 ms VARICOSITIES > 3mm: Location: None Imaged US/US venous duplex LE BI IMPRESSION: Right: Deep venous incompetence involving the mid femoral and popliteal veins. Left: No venous incompetence is demonstrated. There was reflux in the mid left femoral vein that measured less than 1 second. Linear echogenic material in the mid left femoral vein is consistent with chronic thrombus. Heterogeneous material within the popliteal vein is nonocclusive and is age indeterminate, there is no prior on record at this institution. However, the appearance favors chronic. Correlate clinically for evidence of acute or subacute symptoms. Dr. Haley notified by [employer] Leni Zaragoza. Electronically signed by: Andre Polanco MD 09/03/2025 01:51 PM [facility]
--- OUTSIDE RECORDS SUMMARY | 2025-09-03 12:25 | XMS_ITS | Encounter Summary ---
Author Organization [employer] Address [address] [place] [address] [address] [place] [address] Care Team Providers Care Stucco Applicator Name Role Phone Unavailable Primary Care Provider Unavailabl e Reason for Visit * Reason Onset Date Comments resubmit Prior Authorization SRP 08/28/2025 Encounter Details Date Type Department Care Team (Late st Contact Info) Description 08/28/2025 Telephone [facility] [address] [place] [address] Nedra Vergara resubmit Prior Authorization SRP Social History Tobacco Use Types Packs/Day Years Used Date Smoking Tobacco: Never Passive Smoke Exposure: Never Smokeless Tobacco: Never Alcohol Use Standard Drinks/Week Comments Defer 0 (1 standard drink = 0.6 oz pur e alcohol) Sex and Gender Information Value Date Recorded Sex Assigned at Male 08/22/2024 3:30 PM EST Legal Sex Male 3:51 PM EDT Gender Identity Male 08/22/2024 3:30 PM EST Sexual Orientation Straight 08/22/2024 3: 30 PM EST documented as of this encounter Miscellaneous Notes * Telephone Encounter - Briseyda Black - 08/28/2025 12:52 PM EST Patient now has MH. They are looking to see if SRP can be resubmitted to insurance DR documented in this encounter Plan of Treatment Not on file documented as of this encounter Visit Diagnoses Not on filedocumented in this encounter
--- OUTSIDE RECORDS SUMMARY | 2025-09-03 12:25 | XMS_ITS | Clinical Summary ---
Author Organization [employer] Address [address] [place] [address] [address] [place] [address] Care Team Providers Care Visual Artist Name Role Phone Unavailable Primary Care Provider [...] Encounters Date Type Department Care Team Description 08/28/2025 Telephone [facility] D[facility] [address] [place] [address] Nedra Vergara resubmit Prior Authorization SRP from Last 3 Months Social History Tobacco [...] Screening 1977 Hepatitis C Screening 11/21/1983 Hepatitis A Vaccines (1 of 2 - Risk 2-dose series) 1984 Hepatitis B Vaccines (1 of 3 - 19+ 3-dose series) 1984 Pneumococcal Vaccine: 50+ Years (1 of 1 - PCV) 11/21/2015 RSV Patients and Patients Aged 60 years or older (1 - Risk 50-74 years 1-dose series) 11/21/2015 Zoster Vaccines (2 of 2) 11/06/2022 09/11/2022 Dental Oral Exam 03/07/2025 09/05/2024 Dental Prophylaxis 03/07/2025 09/05/2024 DTaP/Tdap/Td Vaccines (3 - Td or Tdap) 03/27/2025 03/27/2015, 10/26/2008 COVID-19 Vaccine (3 - 2024- season) 2025 10/30/2021, 10/09/2021 Tobacco Screening 09/05/2025 09/05/2024 Dental X-Ray: Bitewings 09/06/2025 09/05/2024 Dental X-Ray: Full Mouth 09/06/2027 09/05/2024 Influenza Vaccine Completed 07/18/2025, , 07/07/2018, Additional history exists HIB Vaccines Aged Out No longer eligi [...] Most Recently Relevant to Health Maintenance Insurance [facility] MEDICAID STAND ADULT
--- OUTSIDE RECORDS SUMMARY | 2025-09-03 12:25 | XMS_ITS | Clinical Summary ---
Author Organization [facility] Address [address] [place] [address] Phone Care Team Providers Care Rework Operator Name Role Phone Cleve Catherine MD Primary Care Provider [phone] Allergies No known active allergies Social History Tobacco Use Types Packs/Day Years [...] patient's age to complete this topic Insurance [facility] [place] [address] Care Teams Rework Operator Relationship Specialty Start Date End Date Cleve Catherine MD [address] [place] [address] PCP - General Internal Medicine 10/03/21
--- OUTSIDE RECORDS SUMMARY | 2025-09-03 12:25 | XMS_ITS | Encounter Summary ---
Author Organization [facility] Address [address] [place] [address] Care Team Providers Care Dining Car Conductor Name Role Phone Cleve Catherine MD Primary Care Provider [phone] Encounter Details Date Type Department Care Team (Late st Contact Info) Description 2024 Lab Requisition [facility] - Main Lab [address] [facility] [place] [address] Brittney Leahy PA [address] [facility] [facility] [address] [place] [address] Testicular hypofunction Social History Tobacco Use Types [...] AM EDT) WBC 5.8 4.8 - 10.8 K/[facility] LAB HEMETOLOGY METHOD 2024 1:09 PM EDT [facility] RBC 4.70 4.50 - 5.50 M/[facility] LAB HEMETOLOGY METHOD 2024 1:09 PM [facility] Hemoglobin 14.8 13.5 - 17.5 g/dL LAB HEMETOLOGY METHOD 2024 1:09 PM [facility] LAB Hematocrit 44.0 42.0 - 54.0 [...] LAB HEMETOLOGY METHOD 2024 1:09 PM EDT [facility] Eosinophils Relative 1.9 % LAB HEMETOLOGY METHOD 2024 1:09 PM EDT [facility] Basophils Relative 0.9 % LAB HEMETOLOGY METHOD 2024 1:09 PM EDT [facility] Immature Granulocytes Relative 0.3 % LAB HEMETOLOGY METHOD 2024 1:09 PM EDT [facility] Neutrophils Absolute 3.26 1.50 - 7.00 K/[facility]L LAB HEMETOLOGY METHOD 2024 1:09 PM EDT [facility] Lymphocytes Absolute 1.84 1.00 - 5.00 K/[facility] LAB HEMETOLOGY METHOD 2024 1:09 PM EDT [facility] Monocytes Absolute 0.53 0.20 - 1.00 K/[facility]L LAB HEMETOLOGY METHOD 2024 1:09 PM EDT [facility] Eosinophils Absolute 0.11 0.00 - 0.50 K/[facility]L LAB HEMETOLOGY METHOD 2024 1:09 PM EDT [facility] Basophils Absolute 0.05 0.00 - 0.20 K/mcL LAB HEMETOLOGY METHOD 2024 1:09 PM EDT [facility] Immature Granulocytes Absolute 0.02 0.00 - 0.03 K/mcL LAB HEMETOLOGY METHOD 2024 1:09 PM EDT [facility] Blood Venous blood specimen / Unknown 2024 10:42 AM EDT 2024 12:14 PM EDT us Brittney GONZALEZ LAB BLOOD ORDERABLES Final Res ult [facility] [address] [place] [address], documented in this encounter Visit Diagnoses Diagnosis Testicular hypofunction Other testicular hypofunction documented in this encounter Care Teams Dining Car Conductor Relationship Specialty Start Date End Date Cleve Catherine MD [address] [place] [address] PCP - General Internal Medicine 10/03/21 documented as of this encounter
== END 2025-09-03 10:16 | disposition home or self-care (01) ==
LOC: HO.US 10:15
PROVIDERS: PCP Internal Medicine; Visit Provider Physician Assistant Surgical
DX: I83.12 Varicose veins of left lower extremity with inflammation (principal); I83.11 Varicose veins of right lower extremity with inflammation
CPT/HCPCS: 93970

== ENCOUNTER → 2025-09-03 10:19 | Outpatient (BNV) | payer OTHER, SELFPAY | PROVIDERS: PCP Internal Medicine; Visit Provider Radiology Diagnostic Radiology | DX: I83.11 Varicose veins of right lower extremity with inflammation (principal) | CPT/HCPCS: 93970 ==